=== PATIENT | female | born 2000 | race Caucasian/White ===

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

== ENCOUNTER → 2018-01-22 12:41 | Outpatient (CLI) | payer OTHER, SELFPAY ==
--- NOTE | 2018-01-22 12:43 | US_ITS ---
US OB biophysical profile, US OB follow up: Indication: ITS.REASON: US OB BPP Growth- Small for Dates ORDERING PHYSICIAN: Alanna Ortega MD PATIENT AGE: 17 years FINDINGS: The following parameters are obtained: Average ultrasound age is 33w2d. Estimated due date by ultrasound is 03/10/2018. Estimated weight is 1960. This is 5th percentile indicating intrauterine growth restriction BPD: 34w4d OFD: 34w2d HC: 34w0d AC: 31w3d FL: 33w1d heart rate: 140 bpm. HC/AC: 1.12 (0.96-1.11) Cephalic index: 80% (70-86%) FL/BPD: 75%(71-87%) FL/AC: 24% (20-24%) Amniotic fluid index: 15 cm Qualitative AFV: 2 breathing movements: 2 Gross body movements: 2 Tone: 2 Biophysical profile score: 8/8 No obvious anomalies evident. Placenta: POST Gr 2 Cervix: Appears closed and measures 2.3 cm IMPRESSION: There is a single live fetus which is in cephalic presentation. heart breathing motion noted. Average ultrasound age is 33 weeks and 2 days with a estimated weight of 1960 g which is 50 percentile indicating intrauterine growth restriction. The estimated due date by ultrasound is 03/10/2018. Biophysical profile dated 8 with normal amniotic fluid volume. Placenta is posterior and grade 2
== END ==
PROVIDERS: PCP Emergency Medicine; Visit Provider Obstetrics & Gynecology
DX: O36.5990 Maternal care for other known or suspected poor fetal growth, unspecified trimester, not applicable or unspecified (principal)
CPT/HCPCS: 76816; 76819

== ENCOUNTER → 2018-01-28 12:05 | Outpatient (CLI) | payer OTHER, SELFPAY ==
--- NOTE | 2018-01-28 12:06 | US_ITS ---
US OB biophysical profile, US SD Ratio umbilcal artery: Indication: ITS.REASON: US OB BPP- IUGR ORDERING PHYSICIAN: Alanna Ortega MD PATIENT AGE: 17 years COMPARISON: 01/22/2018 FINDINGS: There is a single fetus present in cephalic presentation. heart body motion noted with an FHR 124 bpm Amniotic fluid index: 12 cm Qualitative AFV: 2 breathing movements: 2 Gross body movements: 2 Tone: 2 Biophysical profile score: 8/8 Doppler evaluation of the umbilical artery: SD ratio: 3.0 Resistive index: 0.67 No obvious anomalies evident. Placenta: Post GR 2 Cervix: Appears closed and measures 3 cm IMPRESSION: Single live fetus in cephalic presentation Biophysical profile 8 out of 8 with normal amniotic fluid index. SD ratio and resistive index are unremarkable below 95th percentile
== END ==
PROVIDERS: PCP Emergency Medicine; Visit Provider Obstetrics & Gynecology
DX: O36.5990 Maternal care for other known or suspected poor fetal growth, unspecified trimester, not applicable or unspecified (principal); Z34.90 Encounter for supervision of normal pregnancy, unspecified, unspecified trimester
CPT/HCPCS: 76819; 76820; 86403

== ENCOUNTER → 2018-02-11 13:02 | Outpatient (CLI) | payer OTHER, SELFPAY ==
--- NOTE | 2018-02-11 13:04 | US_ITS ---
US OB follow up, US SD Ratio umbilcal artery, US OB biophysical profile: INDICATION: Follow-up intrauterine growth restriction ITS.REASON: US OB BPP Growth SD Ratio- IUGR ORDERING PHYSICIAN: Alanna Ortega MD PATIENT AGE: 17 years TECHNIQUE: ultrasound transabdominal scanning. COMPARISON: 01/28/2018. FINDINGS: Single viable intrauterine gestation. Cephalic position. Placenta: Posterior placenta grade 2-3. Average amount of amniotic fluid with an TIFFANY of 15 cm The cervix appears satisfactory. Closed and measuring 3 cm in length. Measurements: Average ultrasound age 35w2d. Gestational Age 37w3d. Estimated due date by ultrasound age 0103/16/2018. Estimated weight 2529 grams. BPD = 36w0d OFD = 36w0d HC = 35w3d AC = 34w6d FL = 34w3d Growth Percentile= 7% Heart Rate = 142 HC/AC is 1.02 (0.92-1.05). CI is 80% (70-86%). FL/BPD is 75% (71-87%). FL/AC is 22% (20-24%). Amniotic fluid index: 15 cm Qualitative AFV: 2 breathing movements: 2 Gross body movements: 2 Tone: 2 Biophysical profile score: 8/8 Doppler evaluation of the umbilical artery: SD ratio: 3.0 Resistive index: 0.66 No obvious anomalies evident. Placenta: Posterior and grade 2-3 Cervix: Appears closed and measures 3 cm IMPRESSION: There is a single live fetus in cephalic presentation with average ultrasound age of 35 weeks and 2 days and an estimated due date of 03/16/2018. Estimated weight is 2529 g which is 7th percentile indicating intrauterine growth restriction. Posterior grade 2-3 placenta without previa or abruption. Biophysical profile 8 of 8. Amniotic fluid index 15 cm. Unremarkable umbilical artery evaluation. SD ratio and resistive index are below the 95th percentile
== END ==
PROVIDERS: PCP Emergency Medicine; Visit Provider Obstetrics & Gynecology
DX: O36.5990 Maternal care for other known or suspected poor fetal growth, unspecified trimester, not applicable or unspecified (principal)
CPT/HCPCS: 76816; 76819; 76820

== ENCOUNTER 2018-02-18 16:01 | Inpatient (IN) ==
[2018-02-18 16:22] VITALS: BP 125/58
[2018-02-18 17:16] LABS: Basophils % 0.3 % (0.1-2.0); Eosinophils % 0.3 % (0.1-12.0); Hematocrit 34.2 % (37.0-47.0); Lymphocytes # 1.9 K/mm3 (0.7-4.5); Lymphocytes % 12.7 % (10-50); Mean Corpuscular HGB Conc 32.1 g/dL (31.8-35.4); Mean Corpuscular Hemoglobin 26.9 pg (27.0-31.2); Mean Corpuscular Volume 83.8 fl (81-99); Mean Platelet Volume 9.8 fl (7.4-10.4); Monocytes # 0.6 K/mm3 (0.1-1.0); Monocytes % 4.1 % (1.7-9.3); Neutrophils % 82.6 % (37.0-80.0); Platelet Count 193 K/mm3 (142-424); Red Blood Count 4.08 M/mm3 (4.20-5.40); Red Cell Distribution Width 13.5 % (11.5-17.5); White Blood Count 14.6 K/mm3 (4.5-13.0)
[2018-02-18 17:28] LABS: Microscopic, Urine URINE MICROSCOPIC (MICROSCOPIC)
[2018-02-18 17:43] LABS: Appearance,Urine CLEAR (Clear); Bilirubin,Urine Negative (Negative); Blood, Urine Negative (Negative); Color,Urine YELLOW (Yellow); Glucose,Urine (UA) Negative (Negative); Ketones,Urine Negative (Negative); Leukocyte Esterase,Urine TRACE (Negative); Protein,Urine Negative (Negative); Urobilinogen,Urine 0.2 EU/dl (0.2)
[2018-02-18 17:57] LABS: Bacteria,Urine Trace /lpf; Squamous Epithelial Cell,Urine Occasional #/hpf (0-5)
[2018-02-19 06:47] LABS: Amphetamine/Metha Screen,Urine Negative ng/mL (<1000); Barbiturates Screen,Urine Negative ng/mL (<200); Benzodiazepines Screen,Urine Negative ng/mL (<200); Cannabinoid Screen,Urine Positive ng/mL (<50); Cocaine Screen,Urine Negative ng/mL (<300); Methadone Screen,Urine Negative ng/mL (<300); Opiate Screen,Urine Negative ng/mL (<300); Phencyclidine Screen,Urine Negative ng/mL (<25)
--- NOTE | 2018-02-19 12:15 | Progress Note ---
[facility] Anesthesia Checklist - Structural Data Admitted From: Inpatient Planned Operative Procedure/s: labor epidural Consent for Planned Operative Procedure(s) Verified: Yes - Airway Assessment C-Spine Mobility Assessed: Yes TMJ Mobility Assessed: Yes Dentition: Good Dentition - Neurological Assessment Level of Consciousness: Awake, Alert, Appropriate - Anesthesia Plan Anesthesia Risk discussed: Yes Anesthesia Plan: Verified ASA Class: II Anesthesia Type: Epidural [facility] History I have reviewed the patient's past medical history: Yes Medical History: Denies:: Cancer, Diabetes Mellitus Type 1, Diabetes Mellitus Type 2, MRSA Laterality Cases: Bilateral: Tonsillectomy Other Surgeries: No: Amputation: No Fractures: No - *Social History Smoking Status: Current every day smoker Tobacco Type: cigarettes # Packs/Day (cigarettes): 1 Alcohol Intake: never Substance Use Type: former substance user, marijuana *Family Hx:: Coronary Artery Disease, Heart Attack, Asthma, Diabetes Para: 0
--- NOTE | 2018-02-19 12:40 | History & Physical Report ---
OB - H&P: HPI Antepartum - History of Present Illness Chief complaint: IOL History of present illness: 17 yo G1 @ 38+ wks IOL for IUGR 5% and grade 3 placenta complicated by tobacco abuse and positive UDS (THC), maternal chlamydia infection (treated successfully with negative repeat testing) She has been consistent with care and compliant with recommended testing testing has been reassuring (NST, BPP, UA dopplers) [facility] History Medical History: Denies:: Cancer, Diabetes Mellitus Type 1, Diabetes Mellitus Type 2, MRSA Laterality Cases: Bilateral: Tonsillectomy Other Surgeries: No: Amputation: No Fractures: No - *Social History Smoking Status: Current every day smoker Tobacco Type: cigarettes # Packs/Day (cigarettes): 1 Alcohol Intake: never Substance Use Type: former substance user, marijuana *Family Hx:: Coronary Artery Disease, Heart Attack, Asthma, Diabetes Para: 0 Review of Systems - Review of Systems CONSTITUTIONAL: no fever/chills HEENT: no oral lesions PULMONARY: no shortness of breath or difficulty breathing CV: no racing heart, palpitations or chest pain ABD: no abdominal pain, N/V : irreg contractions SKIN: no new rash or skin lesions EXT: no edema NEURO: no mental status changes PSYCH: no current anxiety/depression OB: normal movement Meds Home Medications Medication Instructions Recorded Confirmed Type No Known Home Medications 02/18/18 02/18/18 History Allergies Allergy/AdvReac Type Severity Reaction Status Date / Time No Known Allergies Allergy Verified 02/16/18 10:20 OB - H&P: Exam - Physical Exam Vital signs: Temp Pulse Resp BP Pulse Ox 97.8 F 108 H 18 125/58 L 97 02/18/18 16:13 02/18/18 16:13 02/18/18 16:13 02/18/18 16:13 02/18/18 16:13 Narrative: CONSTITUTIONAL: no acute distress HEENT: mucous membranes moist PULMONARY: breathing unlabored without audible wheezes CV: no tachycardia or visible JVD; normal LE peripheral pulses ABD: soft, NT/ND, no guarding : cervix 2/80/-1. Vertex. AROM with clear fluid noted. IUPC and FSE placed without difficulty or complication. SKIN: no visible rash or lesions EXT: 1+ edema LEs NEURO: alert/oriented, no altered mental status PSYCH: appropriate mood and demeanor without visible anxiety/depression OB - Results - Labs Labs: Short CBC 02/18/18 Range/Units 16:57 WBC 14.6 H (4.5-13.0) K/mm3 Hgb 11.0 L (12.2-16.2) g/dL Hct 34.2 L (37.0-47.0) % Plt Count 193 (142-424) K/mm3 Urine 02/18/18 Range/Units 16:25 Urine Color Yellow (Yellow) Urine Appearance Clear (Clear) Urine pH 7.0 (5.0-8.5) Ur Specific [place] 1.020 (1.005-1.030) Urine Protein Negative (Negative) Urine Glucose (UA) Negative (Negative) - Imaging and Cardiology nst Status: image reviewed by me Additional comments: NST: Basline: 140s Variability: moderate Accelerations: yes Decelerations: no Impression: Reactive, Category 1 OB - A/P Antepartum (1) Intrauterine in teenager Current visit: No Status: Acute (2) Intrauterine growth restriction (IUGR) affecting care of mother Problem details: 5% Current visit: No Status: Acute (3) Placental abnormality, antepartum Problem details: Grade 2-3 Current visit: No Status: Acute (4) Positive urine drug screen Problem details: +THC 07/09/17 Current visit: No Status: Acute (5) Tobacco smoking complicating in second trimester Current visit: No Status: Acute (6) Maternal chlamydia infection, history of, currently Current visit: No Status: Acute - Additional Plan Additional Information:: Induction per pitocin protocol S/P amniotomy Epidural placed for pain management Continuous monitoring Anticipate SW consult
[2018-02-19 17:03] LABS: Microscopic, Urine URINE MICROSCOPIC (MICROSCOPIC)
[2018-02-19 17:04] LABS: Appearance,Urine CLEAR (Clear); Bilirubin,Urine Negative (Negative); Blood, Urine Negative (Negative); Color,Urine YELLOW (Yellow); Glucose,Urine (UA) Negative (Negative); Ketones,Urine Negative (Negative); Leukocyte Esterase,Urine Negative (Negative); PH,Urine 6.5 (5.0-8.5); Protein,Urine Negative (Negative); Specific Gravity, Urine 1.015 (1.005-1.030); Urobilinogen,Urine 0.2 EU/dl (0.2)
[2018-02-19 18:09] LABS: Bacteria,Urine 1+ /lpf; Squamous Epithelial Cell,Urine Occasional #/hpf (0-5)
--- NOTE | 2018-02-19 21:22 | Procedure Note ---
- Delivery Note Delivery Date:: 02/19/18 Delivery Time:: 21:00 Anesthesia Type: Epidural Was labor medically induced?: Yes Induction method: per misoprostol protocol Gestational age (weeks): 38 Infant delivered prior to 39 weeks?: Yes Justification for early elective delivery:: IUGR (with grade 3 placenta) Gender: Female at 1 minute: 8 at 5 minutes: 9 LAC or MLE?: MLE Delivery Procedure:: Spontaneous vaginal delivery of vigorous liveborn female infant over MLE. Terminal bradycardia noted during pushing and vertex . Maternal exhaustion precluded effective pushing, at which point small MLE was cut to facilitate delivery sooner. Apgars: 8 & 9 Delivery uncomplicated; no nuchal cord or shoulder dystocia with delivery. Infant placed immediately on maternal abdomen for nursing assessment & VALERIE immediately after umbilical cord clamped/cut Placenta spontaneously expressed and examined; noted to be complete/intact. Several large calcified lesions were identified in the placeta on the cord insertion side, c/w antepartum ultrasound findings. Placenta sent for pathology. Vulva, vagina, and cervix inspected; second degree laceration present. Repaired with 2-0 vicryl in layers, without complication. EBL: 300cc All sponge/needle/instrument counts correct at conclusion of procedure. Disposition: Mom/baby stable to recovery in LDRP. Laceration:: vaginal Placental Delivery Description: Spontaneous, Abnormal Configuration (large calcified lesions)
[2018-02-20 06:39] LABS: Hematocrit 31.6 % (37.0-47.0); Hemoglobin 10.3 g/dL (12.2-16.2)
--- NOTE | 2018-02-20 12:14 | Progress Note ---
Internal Medicine - PN: Subj *Date: 02/20/18 *Time: 12:12 Interval history: PPD #1 no complaints lochia appropriate, pain control sufficient Exam Vital signs and Labs for Last 24 Hours: Temp Pulse Resp BP Pulse Ox 97.8 F 108 H 18 125/58 L 97 02/18/18 16:13 02/18/18 16:13 02/18/18 16:13 02/18/18 16:13 02/18/18 16:13 Laboratory Results - last 24 hr 02/19/18 12:30: Urine Color Yellow, Urine Appearance Clear, Urine pH 6.5, Ur Specific [place] 1.015, Urine Protein Negative, Urine Glucose (UA) Negative, Urine Ketones Negative, Urine Blood Negative, Urine Nitrate Negative, Urine Bilirubin Negative, Urine Urobilinogen 0.2, Ur Leukocyte Esterase Negative, Urine RBC None, Urine WBC 5-10, Ur Squamous Epith Cells Occasional, Urine Bacteria 1+ 02/20/18 06:12: Hgb 10.3 L, Hct 31.6 L I & O for Last 24 hours: Intake & Output 02/18/18 02/19/18 02/20/18 02/21/18 11:59 11:59 11:59 11:59 Weight 135 lb Narrative: CONSTITUTIONAL: no acute distress HEENT: mucous membranes moist PULMONARY: breathing unlabored without audible wheezes CV: no tachycardia or visible JVD; normal LE peripheral pulses ABD: soft, NT/ND, no guarding : fundus firm at/below umbilicus SKIN: no visible rash or lesions EXT: 1+ edema LEs NEURO: alert/oriented, no altered mental status PSYCH: appropriate mood and demeanor without visible anxiety/depression Assessment and Plan (1) Intrauterine in teenager Current visit: No Status: Acute Category: Medical Code(s): Z34.80 - Encounter for supervision of other normal , unspecified trimester (2) Intrauterine growth restriction (IUGR) affecting care of mother Problem details: 5% Current visit: Yes Status: Acute Category: Medical Code(s): O36.5990 - Maternal care for other known or suspected poor growth, unspecified trimester, not applicable or unspecified (3) Placental abnormality, antepartum Problem details: Grade 2-3 Current visit: No Status: Acute Category: Medical Code(s): O43.109 - Malformation of placenta, unspecified, unspecified trimester (4) Positive urine drug screen Problem details: +THC 07/09/17 Current visit: No Status: Acute Category: Medical Code(s): R82.5 - Elevated urine levels of drugs, medicaments and biological substances (5) Tobacco smoking complicating in second trimester Current visit: Yes Status: Acute Category: Medical Code(s): O99.332 - Smoking (tobacco) complicating , second trimester (6) Maternal chlamydia infection, history of, currently Current visit: No Status: Acute Category: Medical (7) Normal vaginal delivery Current visit: Yes Status: Acute Category: Medical Code(s): O80 - Encounter for full-term uncomplicated delivery - Assessment and plan all Dx Assessment and Plan for all problems:: Routine care Anticipate discharge in am
--- NOTE | 2018-02-21 16:17 | Discharge Summary ---
DS: Providers Date of admission: 02/18/18 16:01 Primary care physician: Vamsi Bennett MD Attending physician on admission: Alanna Ortega Consults: 02/18/18 18:05 Care Management Consult [Consult to Case Management] [CONS] Routine Comment: Positive for marijuana this Attending physician on discharge: Alanna Ortega Anticipated date of discharge: 02/21/18 DS: Diagnosis - Discharge Diagnosis (1) Intrauterine in teenager Status: Acute (2) Intrauterine growth restriction (IUGR) affecting care of mother Status: Acute Problem details: 5% (3) Placental abnormality, antepartum Status: Acute Problem details: Grade 2-3 (4) Positive urine drug screen Status: Acute Problem details: +THC 07/09/17 (5) Tobacco smoking complicating in second trimester Status: Acute (6) Maternal chlamydia infection, history of, currently Status: Acute (7) Normal vaginal delivery Status: Acute DS: Medications - Discharge Medications Prescriptions: New Oxycodone HCl/Acetaminophen [Percocet 5/325mg tablet] 1 each PO Q6HP PRN #14 tab PRN Reason: Severe Pain Ibuprofen [Motrin 400mg tablet] 800 mg PO Q6HP PRN #30 tab PRN Reason: Mild To Moderate Pain OB - DS: Summary Hospital course: Ms. Lassiter is a 17 year old female Time spent discussing smoking cessation with patient: more than 10 minutes - Peripartum Data Delivery method: spontaneous vaginal delivery Episiotomy description: Midline complications: none - Status at Discharge Cognitive/behavioral status at discharge: normal/appropriate Functional status at discharge: independent ambulation Overall status at discharge: patient is progressing back to baseline - Time Spent with Patient Total time spent providing and/or coordinating discharge services: Less than 30 minutes Exam Vital signs and Labs for Last 24 Hours: Temp Pulse Resp BP Pulse Ox 97.8 F 108 H 18 125/58 L 97 02/18/18 16:13 02/18/18 16:13 02/18/18 16:13 02/18/18 16:13 02/18/18 16:13 I & O for Last 24 hours: Intake & Output 02/19/18 02/20/18 02/21/18 02/22/18 11:59 11:59 11:59 11:59 Weight 135 lb Narrative: CONSTITUTIONAL: no acute distress HEENT: mucous membranes moist PULMONARY: breathing unlabored without audible wheezes CV: no tachycardia or visible JVD; normal LE peripheral pulses ABD: soft, NT/ND, no guarding : fundus firm at/below umbilicus SKIN: no visible rash or lesions EXT: 1+ edema LEs NEURO: alert/oriented, no altered mental status PSYCH: appropriate mood and demeanor without visible anxiety/depression Discharge Plan - Patient Discharge Instructions ACTIVITY: Limited activity DIET: regular diet - Follow up Plan Disposition: Home, Self-Care Prescriptions/Medication Reconciliation: No Action No Known Home Medications
== END 2018-02-21 16:51 | disposition home or self-care (01) ==
LOC: OB 16:01
PROVIDERS: ADMIT Obstetrics & Gynecology; ATTEND Obstetrics & Gynecology

== ENCOUNTER → 2018-04-23 15:10 | Outpatient (CLI) | payer SELFPAY ==
[2018-04-23 15:38] LABS: HCG,Quantitative 0 mIU/mL
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
== END ==
PROVIDERS: Visit Provider Obstetrics & Gynecology
DX: Z32.00 Encounter for pregnancy test, result unknown (principal)
CPT/HCPCS: 36415; 84702

== ENCOUNTER 2019-09-03 14:59 | Emergency (ER) | payer OTHER, SELFPAY ==
[2019-09-03 15:25] VITALS: BP 100/61; PULSE 63; RESP 16; TEMP 36.9; O2SAT 97; BMI 21.7
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
--- NOTE | 2019-09-03 16:00 | PC.NURSE ---
[facility] crisis center called for a 3rd time and stated that I would be receiving a phone call shortly from a national account representative.
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
[2019-09-03 17:05] VITALS: BP 117/78; PULSE 74; RESP 18; O2SAT 97
--- NOTE | 2019-09-03 17:20 | PC.NURSE ---
Addendum entered by Olga Lidia Cary RN 09/04/19 14:03: Officer abdias notified this nurse Original Note: Officer marla notified that the patient now wishes to follow through with the exam, MD notified.
[2019-09-03 19:17] VITALS: BP 107/61; PULSE 60; RESP 16; O2SAT 98
--- NOTE | 2019-09-03 19:25 | PC.NURSE ---
Dr Ortiz and myself performed the SAFE exam by the instruction in the kit that the officer provided upon arrival to hospital. Sealed completed kit given to Officer Noah. Pt clothes during that she had on when she arrived place in brown paper bags and labeled, patient changed in clothes she had brought in.
--- NOTE | 2019-09-03 20:22 | PC.NURSE ---
[facility] called back and they don't have a bed for this pt at this time
[2019-09-03 20:32] VITALS: BP 123/85; PULSE 80; RESP 20; TEMP 36.8; O2SAT 96
== END 2019-09-03 19:30 | disposition home or self-care (01) ==
PROVIDERS: Emergency Provider Family Medicine; PCP Nurse Practitioner Family
DX: Z04.41 Encounter for examination and observation following alleged adult rape (principal); Z90.09 Acquired absence of other part of head and neck; F17.210 Nicotine dependence, cigarettes, uncomplicated
CPT/HCPCS: 99284

== ENCOUNTER 2019-09-20 19:54 | Emergency (ER) | payer OTHER, SELFPAY ==
[2019-09-20 20:06] VITALS: BP 132/74; PULSE 97; RESP 22; TEMP 36.7; O2SAT 97; BMI 20.1
--- NOTE | 2019-09-20 20:17 | PC.NURSE ---
dr merino returned second call. inr reported at 2.12; states he would rather have patient transfer. md at bedside.
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
[2019-09-20 20:29] VITALS: BP 125/75; PULSE 73; RESP 16; TEMP 36.8; O2SAT 98
== END 2019-09-20 20:34 ==
PROVIDERS: Emergency Provider Emergency Medicine; PCP Nurse Practitioner Family
DX: F32.9 Major depressive disorder, single episode, unspecified (principal); S61.512A Laceration without foreign body of left wrist, initial encounter; W26.0XXA Contact with knife, initial encounter; Y92.019 Unspecified place in single-family (private) house as the place of occurrence of the external cause; F17.210 Nicotine dependence, cigarettes, uncomplicated
CPT/HCPCS: 99282

== ENCOUNTER 2019-10-03 15:46 | Emergency (ER) | payer OTHER, SELFPAY ==
[2019-10-03 16:06] VITALS: BP 114/69; PULSE 68; RESP 19; TEMP 36.8; O2SAT 98; BMI 22.4
[2019-10-03 16:16] VITALS: BP 114/69; PULSE 68; RESP 19; TEMP 36.8; O2SAT 98
--- NOTE | 2019-10-03 16:21 | HMH.EDUTC ---
[facility] [place] Impression: Dental infection Disposition: Home, Self-Care Condition on Discharge: Good Instructions: DI for Dental Pain, DI for Tooth Decay, Tooth Decay, Tooth Abscess Additional Instructions: Make sure to gargle warm salt water may help to soothe the gums Over the counter Motrin and/or Tylenol of pain and fever Take medication as prescribed Follow up with Family doctor/Dentist for further treatment and evaluation Return if needed Straight to ER if any life threatening symptoms Prescriptions: Amoxicillin/Potassium Clav [Augmentin 875-125 Tablet] 1 tab PO Q12H 7 Days #14 tab Prescription Printed Referrals: Azucena Huerta APRN [Primary Care Provider] - As needed Time of Disposition: 16:35 Medical Decision Making - Pierce Inquiry Pt receiving controlled substance: No Pierce was queried for this patient: No Vital Signs: 10/03/19 16:06 10/03/19 16:16 Temperature 98.2 F 98.2 F Temperature Source Oral Oral Pulse Rate 68 Pulse Rate [Left] 68 Respiratory Rate 19 19 Blood Pressure 114/69 Blood Pressure [Right Arm] 114/69 Blood Pressure Mean [Right Arm] 84 Blood Pressure Source [Right Arm] Automatic Cuff Blood Pressure Position [Right Arm] Sitting 02 Sat by Pulse Oximetry 98 Oxygen Delivery Method Room Air Room Air [facility] - General Stated complaint: DENTAL PAIN Time Seen by Provider: 10/03/19 16:21 Mode of Arrival: Ambulatory Source of Information: Patient Limitations: No Limitations Description of Symptoms (Recalled from Triage Doc. by RN): Abscess tooth HEENT Symptoms (Recalled from RN notes): Yes Resp Symptoms (Recalled from RN notes): No Skin Symptoms (Recalled from RN notes): No MS Symptoms (Recalled from RN notes): No Functional Status (Recalled from RN notes): stable - History of Present Illness Provider Complaint: Patient states that she noticed she was having some redness and swelling in her gums on her lower and a area on her upper gumline States that she has been gargling warm salt water but it hasnt helped much States that today looked like it was starting to swell so she come in to get checked - Related Data Home Medications Medication Instructions Recorded Confirmed etonogestrel 68 mg subdermal 68 mg SUBDERMAL ONCE each 04/24/18 02/09/19 implant Previous Rx's Medication Instructions Recorded Azithromycin [Zithromax 250mg 250 mg PO DIRECTED #6 tab 02/09/19 tab] predniSONE [Prednisone 20mg 20 mg PO BID #10 tab 02/09/19 Tab] Amoxicillin/Potassium Clav 1 tab PO Q12H 7 Days #14 tab 10/03/19 [Augmentin 875-125 Tablet] Allergies Allergy/AdvReac Type Severity Reaction Status Date / Time No Known Allergies Allergy Verified 10/29/18 14:02 - Worker's Comp Is this a Worker's Comp case?: No Is this an H Worker's Comp?: No Is this a [place] Worker's Comp?: No [facility] History - Hepatitis A Screen Drug use history?: No High risk sexual behaviors?: No History of sexually transmitted infection?: No Currently employed?: No Childcare worker?: No Do you have indoor plumbing?: Yes Do you have electricity?: Yes Attestation statement:: This patient has been screened for Hepatitis A risk factors. I have reviewed the patient's past medical history: Yes Medical History: Denies:: Cancer, Diabetes Mellitus Type 1, Diabetes Mellitus Type 2, Internal Pacemaker, MRSA Laterality Cases: Bilateral: Tonsillectomy Other Surgeries: No: , Pacemaker Amputation: No Fractures: No - Social History Smoking Status: Current every day smoker Tobacco Type: cigarettes # Packs/Day (cigarettes): 1 Alcohol Intake: never Substance Use Type: marijuana Occupational Status: employed Family Hx:: Coronary Artery Disease, Heart Attack, Asthma, Diabetes ROS Obtained: Yes All systems reviewed & no additional complaints, Yes Systems reviewed as appropriate & no additional complaints - ENT Ears, Nose, Mouth, and Throat: Reports d
== END 2019-10-03 16:31 | disposition home or self-care (01) ==
PROVIDERS: Emergency Provider Nurse Practitioner; PCP Nurse Practitioner Family
DX: K04.7 Periapical abscess without sinus (principal); F17.210 Nicotine dependence, cigarettes, uncomplicated; F12.10 Cannabis abuse, uncomplicated
CPT/HCPCS: 99201

== ENCOUNTER 2019-12-27 16:43 | Emergency (ER) | payer OTHER, SELFPAY ==
--- NOTE | 2019-12-27 16:34 | ECG_ITS ---
APPROVED REPORT Exam: Resting ECG HR:89 bpm ECG Measurements Heart Rate 89 AXES OR 118 P 82 QRSd 90 QRS 97 QT 346 T 8 QTc 420 Conclusion Normal sinus rhythm Rightward axis,CHAKA Nonspecific ST-T wave abnormalities Abnormal ECG Electronically signed by : Bartolo Singer, 01/10/2020 16:40:07
[2019-12-27 16:43] VITALS: BP 136/83; PULSE 94; RESP 16; TEMP 36.5; O2SAT 99; BMI 20.3
[2019-12-27 16:46] VITALS: BMI 20.3
--- NOTE | 2019-12-27 16:47 | XR_ITS ---
PROCEDURE: XR CHEST 2V CLINICAL HISTORY: chest pain Chest pain COMPARISON: CR CXR CHEST(2 VIEWS-NOT PORTABLE) from 07/17/2010 CR XR RIBS BI MIN 4V W CXR1V from 12/23/2018 CR XR CHEST 2V from 02/09/2019 FINDINGS: The cardiomediastinal silhouette and pulmonary vascularity are within normal limits. The lungs are clear without infiltrates, suspicious nodules, or pleural effusions. No acute bony abnormalities. IMPRESSION: No acute findings. Dictated by: Eric Chan MD 12/27/2019 17:11 Eric Chan MD in [place] 12/27/2019 17:11
--- NOTE | 2019-12-27 16:51 | HMH.EDGENADL ---
ED Disposition Clinical Impression: Gastritis Qualifiers: Gastritis type: unspecified gastritis Chronicity: acute Gastritis bleeding: without bleeding Qualified Code(s): K29.00 - Acute gastritis without bleeding Gastric ulcer Qualifiers: Gastric ulcer chronicity: acute Gastric ulcer complication status: without hemorrhage or perforation Qualified Code(s): K25.3 - Acute gastric ulcer without hemorrhage or perforation Disposition: Home, Self-Care Condition on Discharge: Good Instructions: DI for Gastroesophageal Reflux Disease (GERD) Prescriptions: Famotidine 10 mg PO BID 30 Days #60 tablet Referrals: Provider,Referral, [Referring] - - Critical Care Critical Care Time: No Attestation: On 12/27/19, the high probability of a clinically significant, sudden or life threatening deterioration of the following system(s) required my full and direct attention, intervention and personal management. The time I documented below is in addition to time spent performing reported procedures but includes the following listed in this critical care notation. Medical Decision Making - Medical Records Medical records reviewed: Yes: I reviewed the patient's medical records. - Pierce Inquiry Pt receiving controlled substance: No Vital Signs: 12/27/19 16:43 12/27/19 17:04 Temperature 97.7 F Temperature Source Oral Pulse Rate [Left Radial] 94 H 88 Respiratory Rate 16 20 Blood Pressure [Right Arm] 136/83 126/76 Blood Pressure Mean [Right Arm] 100 92 Blood Pressure Source [Right Arm] Automatic Cuff Automatic Cuff Blood Pressure Position [Right Arm] Sitting Sitting 02 Sat by Pulse Oximetry 99 96 Oxygen Delivery Method Room Air - Lab Data Lab results reviewed: Yes: I reviewed the patient's lab results. Lab Results 12/27/19 16:45: WBC 9.1, RBC 5.79 H, Hgb 16.8 H, Hct 52.2 H, MCV 90.1, MCH 29.1, MCHC 32.3, RDW 12.8, Plt Count 249, MPV 8.2, Neut % (Auto) 64.0, Lymph % (Auto) 26.6, Baldwin % (Auto) 6.4, Eos % (Auto) 2.1, Baso % (Auto) 0.9, Neut # (Auto) 5.8, Lymph # (Auto) 2.4, Baldwin # (Auto) 0.6, Eos # (Auto) 0.2, Baso # (Auto) 0.1 12/27/19 16:45: Troponin I < 0.01 12/27/19 16:45: Sodium 139, Potassium 3.7, Chloride 105, Carbon Dioxide 25, Anion Gap 12.7, BUN 13, Creatinine 0.80, Estimated Creat Clear 92, Estimated GFR 91, Est GFR ( Amer) 110, Glucose 85, Calcium 9.8, Total Bilirubin 0.7, AST 24, ALT 16, Alkaline Phosphatase 68, Total Protein 8.0, Albumin 4.7, Globulin 3.3 H, Albumin/Globulin Ratio 1.4 Result diagrams: 12/27/19 16:45 12/27/19 16:45 Orders (Tests/Meds): ED MEDICATIONS Discontinued Medications Generic Name Dose Route Start Last Admin Trade Name Freq PRN Reason Stop Dose Admin Belladonna Alkaloids 60 ml 12/27/19 16:47 12/27/19 16:51 Gi Cocktail 60ml Udc PO 12/27/19 16:48 60 ml ONCE ONE Administration ORDERS Category Date Time Status Troponin I Q3H Lab 12/27/19 20:00 Ordered Troponin I Q3H Lab 12/27/19 23:00 Ordered Urine , HCG Qual. Stat Lab 12/27/19 17:00 Ordered Medical Decision Narrative: 19-year-old female who comes in the emergency department for evaluation of left upper abdominal pain/chest pain. Pain started approximately 30 minutes prior to arrival. Differential diagnosis includes but is not limited to GERD, gastritis, perforated ulcer, myocardial infarction, and less likely pancreatitis. Labs obtained including CBC, CMP, troponins. EKG obtained immediately upon arrival negative for any evidence of ST elevation, ST depression, or T wave abnormalities concerning for ACS at this time. Chest x-ray obtained, personally reviewed, and negative for acute abnormalities. Provided patient with GI cocktail. Labs show no significant electrolyte abnormalities requiring correction in the emergency department. No leukocytosis. Evidence of mild dehydration with increased hemoglobin and hematocrit. Significant LFT elevations. Urine test obtained and neg
[2019-12-27 17:04] VITALS: BP 126/76; PULSE 88; RESP 20; O2SAT 96
[2019-12-27 17:05] LABS: Basophils # 0.1 K/mm3 (0-0.2); Basophils % 0.9 % (0.1-2.0); Eosinophils # 0.2 K/mm3 (0.0-0.4); Eosinophils % 2.1 % (0.1-12.0); Hematocrit 52.2 % (37.0-47.0); Hemoglobin 16.8 g/dL (12.2-16.2); Lymphocytes # 2.4 K/mm3 (0.7-4.5); Lymphocytes % 26.6 % (10-50); Mean Corpuscular HGB Conc 32.3 g/dL (31.8-35.4); Mean Corpuscular Hemoglobin 29.1 pg (27.0-31.2); Mean Corpuscular Volume 90.1 fl (81-99); Mean Platelet Volume 8.2 fl (7.4-10.4); Monocytes # 0.6 K/mm3 (0.1-1.0); Monocytes % 6.4 % (1.7-9.3); Neutrophils # 5.8 K/mm3 (1.8-7.8); Platelet Count 249 K/mm3 (142-424); Red Blood Count 5.79 M/mm3 (4.20-5.40); Red Cell Distribution Width 12.8 % (11.5-17.5); White Blood Count 9.1 K/mm3 (4.8-10.8)
[2019-12-27 17:08] LABS: Chloride 105 mmol/L (98-107); Sodium 139 mmol/L (136-145)
[2019-12-27 17:09] LABS: Potassium 3.7 mmoL/L (3.5-5.1)
[2019-12-27 17:11] LABS: Alanine Aminotransferase 16 U/L (12-78); Alkaline Phosphatase 68 U/L (38-126); Aspartate Amino Transferase 24 U/L (14-36); Bilirubin,Total 0.7 mg/dl (0.2-1.3); Blood Urea Nitrogen 13 mg/dl (7-17); Creatinine Clearance Estimated 92 mL/min (50-200); Estimated Glomerular Filt Rate 91 ml/min (>60); GFR (African American) 110 ML/MIN (>60)
[2019-12-27 17:12] LABS: Albumin Level 4.7 g/dl (3.5-5.0); Albumin/Globulin Ratio 1.4 (1.1-1.8); Anion Gap 12.7 mEq/L (5-15); Calcium 9.8 mg/dl (8.4-10.2); Carbon Dioxide 25 mmol/L (22.0-30.0); Globulin 3.3 g/dL (1.3-3.2); Glucose 85 mg/dl (74-100)
[2019-12-27 17:44] LABS: Troponin I < 0.01 ng/ml (0.00-0.034)
[2019-12-27 18:09] LABS: Urine Pregnancy, HCG Qual. Negative (Negative)
[2019-12-27 18:48] VITALS: BP 101/70; PULSE 74; RESP 18; TEMP 36.5; O2SAT 96
== END 2019-12-27 18:49 | disposition home or self-care (01) ==
PROVIDERS: Emergency Provider Emergency Medicine; PCP Nurse Practitioner Family
DX: K29.00 Acute gastritis without bleeding (principal); K25.3 Acute gastric ulcer without hemorrhage or perforation; R07.9 Chest pain, unspecified; F12.10 Cannabis abuse, uncomplicated; F17.210 Nicotine dependence, cigarettes, uncomplicated
CPT/HCPCS: 71046; 80053; 81025; 84484; 85025; 93005; 99283

== ENCOUNTER 2020-01-25 15:40 | Emergency (ER) | payer OTHER, SELFPAY ==
[2020-01-25 15:49] VITALS: BP 119/80; PULSE 86; RESP 18; TEMP 36.7; O2SAT 96; BMI 22.4
--- NOTE | 2020-01-25 16:23 | HMH.EDUTC ---
[facility] [place] Disposition Clinical Impression: Bronchitis, Exposure to COVID-19 virus Disposition: Home, Self-Care Condition on Discharge: Good Instructions: Preventing the Spread of Coronavirus Discharge Instructions Additional Instructions: Drink plenty of fluids. Take tylenol for pain or fever. Return if you begin to have difficulty breathing. Follow up with your regular doctor. GO TO THE ER FOR ANY WORSENING SYMPTOMS Prescriptions: Brompheniramine/Pseudoephed/Dm [Bromfed Dm Cough Syrup] 5 ml PO Q6HP PRN #240 syrup PRN Reason: Cough Transmission Status: Pending to [facility] RX: Azithromycin [Z-Bi 250mg Tab*] 250 mg PO UD DOSE PK #6 tab Transmission Status: Pending to [facility] Referrals: Azucena Huerta APRN [Primary Care Provider] - Forms: Work/School Release Time of Disposition: 16:33 Medical Decision Making - Medical Records Medical records reviewed: No: I reviewed the patient's medical records. - Pierce Inquiry Pt receiving controlled substance: No Vital Signs: 01/25/20 15:49 Temperature 98.1 F Temperature Source Oral Pulse Rate [Radial] 86 Respiratory Rate 18 Blood Pressure [Right Arm] 119/80 Blood Pressure Mean [Right Arm] 93 Blood Pressure Source [Right Arm] Automatic Cuff Blood Pressure Position [Right Arm] Sitting 02 Sat by Pulse Oximetry 96 Oxygen Delivery Method Room Air Orders (Tests/Meds): ORDERS Category Date Time Status Covid-19 Nasal PCR ([facility]) Routine Lab 01/25/20 15:47 Received [facility] [place] HPI - General Stated complaint: SOA, cough, diarrhea, COVID Exposure Time Seen by Provider: 01/25/20 16:23 Mode of Arrival: Ambulatory Source of Information: Patient Limitations: No Limitations Description of Symptoms (Recalled from Triage Doc. by RN): SOB, ANDERSON, cough x 1 week. HEENT Symptoms (Recalled from RN notes): Yes Resp Symptoms (Recalled from RN notes): No Skin Symptoms (Recalled from RN notes): No MS Symptoms (Recalled from RN notes): No Functional Status (Recalled from RN notes): wnl - History of Present Illness Provider Complaint: She has had a cough and felt bad for the past 2 days. She has had no fever/chills/or body aches. She has been exposed to covid multiple times over the past week or so. - Related Data Home Medications Medication Instructions Recorded Confirmed etonogestrel 68 mg subdermal 68 mg SUBDERMAL ONCE each 04/24/18 02/09/19 implant Previous Rx's Medication Instructions Recorded Azithromycin [Zithromax 250mg 250 mg PO DIRECTED #6 tab 02/09/19 tab] predniSONE [Prednisone 20mg 20 mg PO BID #10 tab 02/09/19 Tab] Amoxicillin/Potassium Clav 1 tab PO Q12H 7 Days #14 tab 10/03/19 [Augmentin 875-125 Tablet] RX: Famotidine 10 mg PO BID 30 Days #60 tab 12/27/19 Brompheniramine/Pseudoephed/Dm 5 ml PO Q6HP PRN #240 syrup 01/25/20 [Bromfed Dm Cough Syrup] RX: Azithromycin [Z-Bi 250mg Tab*] 250 mg PO UD DOSE PK #6 tab 01/25/20 Allergies Allergy/AdvReac Type Severity Reaction Status Date / Time No Known Allergies Allergy Verified 10/29/18 14:02 - Worker's Comp Is this a Worker's Comp case?: No [facility] History - Hepatitis A Screen Drug use history?: No High risk sexual behaviors?: No History of sexually transmitted infection?: No Currently employed?: No Childcare worker?: No Do you have indoor plumbing?: Yes Do you have electricity?: Yes Attestation statement:: This patient has been screened for Hepatitis A risk factors. I have reviewed the patient's past medical history: Yes Medical History: Denies:: Cancer, Diabetes Mellitus Type 1, Diabetes Mellitus Type 2, Internal Pacemaker, MRSA Laterality Cases: Bilateral: Tonsillectomy Other Surgeries: No: , Pacemaker Amputation: No Fractures: No - Social History Smoking Status: Current every day smoker Tobacco Type: cigarettes # Packs/Day (cigarettes): 1 Alcohol Intake: never Substance Use Type: marijuana Occupational S
[2020-01-25 16:41] VITALS: BP 119/80; PULSE 70; RESP 16; TEMP 36.8; O2SAT 98
== END 2020-01-25 16:42 | disposition home or self-care (01) ==
PROVIDERS: Emergency Provider Nurse Practitioner Family; PCP Nurse Practitioner Family
DX: Z20.828 Contact with and (suspected) exposure to other viral communicable diseases (principal); J20.9 Acute bronchitis, unspecified; F17.210 Nicotine dependence, cigarettes, uncomplicated
CPT/HCPCS: 99201; U0003

== ENCOUNTER 2020-02-14 11:21 | Emergency (ER) | payer OTHER, SELFPAY ==
[2020-02-14 12:15] VITALS: BP 112/64; PULSE 75; RESP 18; TEMP 36.7; O2SAT 99; BMI 22.4
[2020-02-14 12:20] VITALS: BP 112/64; PULSE 75; RESP 18; TEMP 36.7; O2SAT 99
--- NOTE | 2020-02-14 12:21 | HMH.EDUTC ---
[facility] [place] Clinical Impression: Encounter for laboratory testing for COVID-19 virus, Bronchitis Sinusitis Qualifiers: Sinusitis location: unspecified location Chronicity: unspecified Qualified Code(s): J32.9 - Chronic sinusitis, unspecified Disposition: Home, Self-Care Condition on Discharge: Good Instructions: Sinusitis, DI for Sinusitis, Acute Bronchitis, Amoxicillin and Clavulanic Acid, Preventing the Spread of Coronavirus Discharge Instructions Additional Instructions: *Monitor Temp, Over the counter Motrin or Tylenol as directed/as needed Tylenol every 4 hours and Motrin every 6 hours (as long as your family doctor has told you that you can take it) for fever or pain. and straight to ER if unable to lower temp less than 101.0 after medication given *Warm salt water gargles may help to soothe the throat *Throat Lozenges *Warm fluids like tea with honey may help to soothe the throat *Sleep elevated *Humidifier/Vaporizer *Flonase 2 sprays in each nostril daily but be aware that it may take 2-3 days before you notice improvement Follow up IMMEDIATELY for new or worsening symptoms or no Noticeable improvement over the next 48-72 hours. 911 for difficulty breathing or swallowing You were tested for today for COVID19 your test result should be back in the next 24-48 hours, you may call to the [facility] to see if your test results are back in the next 48 hours [phone] [facility] hours are 9am-9pm You was given a handout with instructions for Self Quarantine and Self isolation for while you wait on test results and what to do if they are positive If you are positive the Health Dept will be contacting you also Prescriptions: Albuterol Sulfate [Proventil-HFA 90mcg/puff Inh] 1 - 2 puffs IH Q4HP PRN #1 inh PRN Reason: Shortness Of Breath Transmission Status: Pending to [facility] Amoxicillin/Potassium Clav [Augmentin 875-125 Tablet] 1 tab PO Q12H 7 Days #14 tab Transmission Status: Pending to [facility] Referrals: Azucena Huerta APRN [Primary Care Provider] - As needed Forms: Work/School Release Time of Disposition: 12:29 Medical Decision Making - Pierce Inquiry Pt receiving controlled substance: No Pierce was queried for this patient: No Vital Signs: 02/14/20 12:15 Temperature 98.1 F Temperature Source Oral Pulse Rate [Left] 75 Respiratory Rate 18 Blood Pressure [Right Arm] 112/64 Blood Pressure Mean [Right Arm] 80 Blood Pressure Source [Right Arm] Automatic Cuff Blood Pressure Position [Right Arm] Sitting 02 Sat by Pulse Oximetry 99 Oxygen Delivery Method Room Air Orders (Tests/Meds): ORDERS Category Date Time Status Covid-19 Nasal PCR Sendout [facility] 02/14/20 12:07 Ordered [facility] [place] HPI - General Stated complaint: Cough, fever, headache Time Seen by Provider: 02/14/20 12:21 Mode of Arrival: Ambulatory Source of Information: Patient Limitations: No Limitations Description of Symptoms (Recalled from Triage Doc. by RN): Covid testing symptomatic-SOB, Cough, fever, headache, body aches HEENT Symptoms (Recalled from RN notes): Yes Resp Symptoms (Recalled from RN notes): Yes Skin Symptoms (Recalled from RN notes): No MS Symptoms (Recalled from RN notes): Yes Functional Status (Recalled from RN notes): wnl - History of Present Illness Provider Complaint: Patient state that she was seen and treated for Bronchitis about a month ago Statse that she feels like it may be back States that she has been having sinus pain and pressure along with cough, sinus pain and pressure and feels like she cannot breath through her nose States that she has been having a low grade fever State that she went to work and they made her come and get tested for COVID - Related Data Home Medications Medication Instructions Recorded Confirmed etonogestrel 68 mg subdermal 68 mg SUBDERMAL ONCE each 04/24/18 02/09/19 implant Previous Rx's Medication Instructions Recorded Azithromycin [
[2020-02-15 14:04] LABS: Covid-19 Nasal PCR Sendout Lex NOT DETECTED
== END 2020-02-14 12:50 | disposition home or self-care (01) ==
PROVIDERS: Emergency Provider Nurse Practitioner; PCP Nurse Practitioner Family
DX: Z20.828 Contact with and (suspected) exposure to other viral communicable diseases (principal); J20.9 Acute bronchitis, unspecified; J32.9 Chronic sinusitis, unspecified; F17.210 Nicotine dependence, cigarettes, uncomplicated
CPT/HCPCS: 99201; U0004

== ENCOUNTER 2020-07-05 17:49 | Emergency (ER) | payer OTHER, SELFPAY ==
[2020-07-05 17:52] VITALS: BP 118/60; PULSE 81; RESP 18; TEMP 36.9; O2SAT 99; BMI 21.0
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
[2020-07-05 18:28] LABS: Urine Pregnancy, HCG Qual. Negative (Negative)
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
[2020-07-05 19:00] VITALS: BP 107/61; PULSE 67; RESP 17; O2SAT 97
[2020-07-05 19:36] VITALS: BP 104/78; PULSE 69; RESP 16; TEMP 36.9; O2SAT 98
== END 2020-07-05 19:38 | disposition home or self-care (01) ==
PROVIDERS: Emergency Provider Emergency Medicine; PCP Nurse Practitioner Family
DX: S29.019A Strain of muscle and tendon of unspecified wall of thorax, initial encounter (principal); S23.41XA Sprain of ribs, initial encounter; V40.0XXA Car driver injured in collision with pedestrian or animal in nontraffic accident, initial encounter; Y92.413 State road as the place of occurrence of the external cause
CPT/HCPCS: 71250; 72128; 81025; 99282

== ENCOUNTER 2020-09-25 22:06 | Emergency (ER) | payer OTHER, SELFPAY ==
[2020-09-25 22:07] VITALS: BP 126/65; PULSE 65; RESP 16; TEMP 36.7; O2SAT 97; BMI 21.0
[2020-09-25 22:29] LABS: Microscopic, Urine URINE MICROSCOPIC (MICROSCOPIC)
[2020-09-25 22:31] LABS: Basophils # 0.1 K/mm3 (0-0.2); Basophils % 1.5 % (0.1-2.0); Eosinophils # 0.2 K/mm3 (0.0-0.4); Eosinophils % 2.1 % (0.1-12.0); Hematocrit 42.3 % (37.0-47.0); Hemoglobin 14.5 g/dL (12.2-16.2); Lymphocytes % 40.8 % (10-50); Mean Corpuscular HGB Conc 34.2 g/dL (31.8-35.4); Mean Corpuscular Hemoglobin 29.7 pg (27.0-31.2); Mean Corpuscular Volume 86.9 fl (81-99); Mean Platelet Volume 8.4 fl (7.4-10.4); Monocytes # 0.6 K/mm3 (0.1-1.0); Monocytes % 6.5 % (1.7-9.3); Neutrophils # 4.8 K/mm3 (1.8-7.8); Neutrophils % 49.2 % (37.0-80.0); Platelet Count 187 K/mm3 (142-424); Red Blood Count 4.87 M/mm3 (4.20-5.40); Red Cell Distribution Width 12.9 % (11.5-17.5); White Blood Count 9.7 K/mm3 (4.8-10.8)
[2020-09-25 22:40] LABS: Urine Pregnancy, HCG Qual. Negative (Negative)
[2020-09-25 22:46] LABS: Alanine Aminotransferase 14 U/L (12-78); Albumin Level 4.6 g/dl (3.5-5.0); Albumin/Globulin Ratio 1.6 (1.1-1.8); Alkaline Phosphatase 60 U/L (38-126); Aspartate Amino Transferase 29 U/L (14-36); Bilirubin,Total 0.4 mg/dl (0.2-1.3); Blood Urea Nitrogen 19 mg/dl (7-17); Calcium 9.8 mg/dl (8.4-10.2); Carbon Dioxide 26 mmol/L (22.0-30.0); Chloride 106 mmol/L (98-107); Creatinine Clearance Estimated 81 mL/min (50-200); Estimated Glomerular Filt Rate 79 ml/min (>60); GFR (African American) 96 ML/MIN (>60); Globulin 2.9 g/dL (1.3-3.2); Glucose 101 mg/dl (74-100); Sodium 140 mmol/L (136-145); Total Protein,Serum 7.5 g/dl (6.3-8.2)
[2020-09-25 22:53] LABS: Appearance,Urine CLEAR (Clear); Bilirubin,Urine Negative (Negative); Blood, Urine TRACE-I (Negative); Color,Urine YELLOW (Yellow); Glucose,Urine (UA) Negative (Negative); Ketones,Urine TRACE (Negative); Leukocyte Esterase,Urine Negative (Negative); Nitrate,Urine Negative (Negative); Protein,Urine 1+ (Negative); Specific Gravity, Urine >= 1.030 (1.005-1.030); Urobilinogen,Urine 0.2 EU/dl (0.2)
[2020-09-25 22:59] LABS: C-Reactive Protein < 0.3 mg/L (0-4)
--- NOTE | 2020-09-25 23:00 | PC.NURSE ---
Pt refused PO contrast stated she didn't want to wait that long
[2020-09-25 23:09] LABS: Erythrocyte Sedimentation Rate 6 mm/hr (0-20)
[2020-09-25 23:26] LABS: Procalcitonin < 0.030 ng/mL (0.0-2.0)
--- NOTE | 2020-09-25 23:44 | HMH.EDNVD ---
ED Disposition Clinical Impression: Pelvic pain Disposition: Home, Self-Care Condition on Discharge: Good Instructions: DI for Pelvic Pain Additional Instructions: advil/tyenol and see pcp for follow up Referrals: Azucena Huerta APRN [Primary Care Provider] - - Critical Care Critical Care Time: No Attestation: On 09/25/20, the high probability of a clinically significant, sudden or life threatening deterioration of the following system(s) required my full and direct attention, intervention and personal management. The time I documented below is in addition to time spent performing reported procedures but includes the following listed in this critical care notation. Medical Decision Making - Medical Records Medical records reviewed: Yes: I reviewed the patient's medical records. - Pierce Inquiry Pt receiving controlled substance: No Vital Signs: 09/25/20 22:07 Temperature 98.1 F Temperature Source Oral Pulse Rate [Left Radial] 65 Respiratory Rate 16 Blood Pressure [Right Arm] 126/65 Blood Pressure Mean [Right Arm] 85 Blood Pressure Source [Right Arm] Automatic Cuff Blood Pressure Position [Right Arm] Sitting 02 Sat by Pulse Oximetry 97 Oxygen Delivery Method Room Air - Lab Data Lab results reviewed: Yes: I reviewed the patient's lab results. Lab Results 09/25/20 22:10: Urine Color Yellow, Urine Appearance Clear, Urine pH 6.0, Ur Specific [place] >= 1.030, Urine Protein 1+, Urine Glucose (UA) Negative, Urine Ketones Trace, Urine Blood Trace-i, Urine Nitrate Negative, Urine Bilirubin Negative, Urine Urobilinogen 0.2, Ur Leukocyte Esterase Negative 09/25/20 22:10: Urine HCG, Qual Negative 09/25/20 22:15: WBC 9.7, RBC 4.87, Hgb 14.5, Hct 42.3, MCV 86.9, MCH 29.7, MCHC 34.2, RDW 12.9, Plt Count 187, MPV 8.4, Neut % (Auto) 49.2, Lymph % (Auto) 40.8, [place] % (Auto) 6.5, Eos % (Auto) 2.1, Baso % (Auto) 1.5, Neut # (Auto) 4.8, Lymph # (Auto) 4.0, [place] # (Auto) 0.6, Eos # (Auto) 0.2, Baso # (Auto) 0.1 09/25/20 22:15: Sodium 140, Potassium 4.0, Chloride 106, Carbon Dioxide 26, Anion Gap 12.0, BUN 19 H, Creatinine 0.90, Estimated Creat Clear 81, Estimated GFR 79, Est GFR ( Amer) 96, Glucose 101 H, Calcium 9.8, Total Bilirubin 0.4, AST 29, ALT 14, Alkaline Phosphatase 60, Total Protein 7.5, Albumin 4.6, Globulin 2.9, Albumin/Globulin Ratio 1.6 09/25/20 22:18: ESR 6 09/25/20 22:18: C-Reactive Protein < 0.3, Procalcitonin < 0.030 Result diagrams: 09/25/20 22:15 09/25/20 22:15 Orders (Tests/Meds): ED MEDICATIONS Generic Name Dose Route Start Last Admin Trade Name Freq PRN Reason Stop Dose Admin Lactated Ringer's 1,000 mls @ 999 mls/hr 09/25/20 22:30 09/25/20 23:10 Lactated Ringer's 1000 Ml Bag IV 09/25/20 23:30 999 mls/hr .Q1H1M EMMANUEL Administration Discontinued Medications Generic Name Dose Route Start Last Admin Trade Name Freq PRN Reason Stop Dose Admin Diatrizoate Meglum/Diatrizoate Sod 30 ml 09/25/20 22:58 09/25/20 23:22 Diatrizoate Ya 66% & Diatrizoate Na 10% 30ml Udc PO 09/25/20 22:59 Not Given ONCE ONE Ketorolac Tromethamine 30 mg 09/25/20 22:33 09/25/20 23:09 Ketorolac 30mg/Ml Vial IV 09/25/20 22:34 30 mg ONCE ONE Administration Ondansetron HCl 4 mg 09/25/20 22:33 09/25/20 23:09 Ondansetron 4mg/2ml Vial IV 09/25/20 22:34 4 mg ONCE ONE Administration ORDERS Category Date Time Status CT abdomen pelvis w con Stat Cat Scan 09/26/20 00:05 Ordered Urinalysis and Microscopic Stat Lab 09/25/20 22:10 Results Medical Decision Narrative: declined ct and has stable vs and labs will refer to pcp Nausea/Vomiting/Diarrhea HPI - General Chief complaint: Abdominal Pain Stated complaint: Abd pain Time Seen by Provider: 09/25/20 23:00 Mode of Arrival: Ambulatory Source of Information: Patient, Medical Record Limitations: No Limitations Description of Symptoms (Recalled from ER Triage Doc. by RN): Pt reports lower abd cramping along wi
--- NOTE | 2020-09-26 00:02 | PC.NURSE ---
pt refused have ct completed. vss. emv 15.
[2020-09-26 00:17] VITALS: BP 121/75; PULSE 75; RESP 18; TEMP 36.8; O2SAT 98
[2020-09-26 00:25] LABS: Squamous Epithelial Cell,Urine Occasional #/hpf (0-5)
[2020-09-26 00:26] LABS: Bacteria,Urine 1+ /lpf
== END 2020-09-26 00:23 | disposition home or self-care (01) ==
PROVIDERS: Emergency Provider Emergency Medicine; PCP Nurse Practitioner Family
DX: R10.2 Pelvic and perineal pain (principal); F17.210 Nicotine dependence, cigarettes, uncomplicated
CPT/HCPCS: 80053; 81001; 81025; 84145; 85025; 85651; 86140; 96365; 96375; 99282; J2405

== ENCOUNTER → 2021-01-11 17:59 | Outpatient (CLI) | payer OTHER, SELFPAY | PROVIDERS: Visit Provider Physician Assistant | DX: N39.0 Urinary tract infection, site not specified (principal) | CPT/HCPCS: 87086 ==

== ENCOUNTER → 2021-01-31 07:58 | Outpatient (CLI) | payer OTHER, SELFPAY ==
--- NOTE | 2021-01-31 07:58 | CT_ITS ---
PROCEDURE: CT CHEST WO CON CLINICAL INDICATION: Pleurisy COMPARISON: CT CT CHEST WO CON from 07/05/2020 TECHNIQUE: Axial images obtained with sagittal and coronal reformats. All CT scans at the facility use one or more dose reduction, viz: automated exposure control, ma/kV adjustment per patient size (including targeted exams where dose is matched to indication, i.e. head), or iterative reconstruction technique. FINDINGS: No mediastinal or. There are calcified similar to the previous. Increased density in the anterior mediastinum consistent tissue Scattered small nodules once again not significantly changed. No evident. No effusions or infiltrates. No acute bony anomalies. Upper abdominal images are. IMPRESSION: No change no acute finding. Scattered small pulmonary nodules stable. Dictated by: Eric Chan MD 02/01/2021 08:57 Eric Chan MD in [place] 02/01/2021 08:57
== END ==
PROVIDERS: PCP Nurse Practitioner Family; Visit Provider Nurse Practitioner Family
DX: R09.1 Pleurisy (principal); R52 Pain, unspecified
CPT/HCPCS: 71250

== ENCOUNTER → 2022-07-11 10:07 | Outpatient (CLI) | payer OTHER, SELFPAY ==
[2022-07-11 10:52] LABS: HCG,Quantitative < 2 mIU/ml (0-5.42)
== END ==
PROVIDERS: PCP Nurse Practitioner Family; Visit Provider Nurse Practitioner Psychiatric/Mental Health
DX: Z34.90 Encounter for supervision of normal pregnancy, unspecified, unspecified trimester (principal)
CPT/HCPCS: 36415; 84702

== ENCOUNTER 2022-07-16 09:10 | Emergency (ER) | payer OTHER, SELFPAY ==
[2022-07-16] VITALS (11 sets, daily range): BP systolic 114–126; BP diastolic 46–76; PULSE 51–74; RESP 18–20; TEMP 36.3; O2SAT 98–100; BMI 20.3
[2022-07-16 09:26] LABS: Microscopic, Urine URINE MICROSCOPIC (MICROSCOPIC)
--- NOTE | 2022-07-16 09:26 | HMH.EDGENADL ---
Discharge Plan Disposition Patient Disposition: Home, Self-Care Condition: Good Prescriptions Prescriptions: New ondansetron 4 mg tablet,disintegrating 4 mg PO Q8H PRN (Reason: nausea and vomiting) 4 Days Qty: 12 0RF No Action spironolactone 50 mg tablet 50 mg PO BID glycopyrrolate 1 mg tablet 1 mg PO BID Qty: 60 2RF Junel Fe 24 1 mg-20 mcg (24)/75 mg (4) tablet 1 tab PO DAILY Qty: 84 3RF Vraylar 3 mg capsule 3 mg PO DAILY Qty: 30 1RF hydroxyzine pamoate [Vistaril] 50 mg capsule 50 mg PO QHS Qty: 30 1RF hydroxyzine pamoate [Vistaril] 25 mg capsule 25 mg PO .COMPLEX PRN (Reason: for sleep) Qty: 60 0RF Rx Instructions: 25 mg PO take 1 capsule at bedtime; if still awake in 1 hour; may repeat the dose PRN; albuterol sulfate [ProAir HFA] 90 mcg/actuation HFA aerosol inhaler See Rx Instructions .ROUTE .COMPLEX Qty: 8.5 0RF Dose Instruction: 2 PUFFS BY MOUTH EVERY 4 TO 6 HOURS NEEDED FOR SHORTNESS OF BREATH OR WHEEZING Rx Instructions: 2 PUFFS BY MOUTH EVERY 4 TO 6 HOURS NEEDED FOR SHORTNESS OF BREATH OR WHEEZING Referrals Follow up/Referrals: Azucena Huerta APRN [Primary Care Provider] - See instructions Activity Restrictions/Add. Instructions Additional Instructions/Restrictions: You were evaluated in the emergency department today. At this time, feel your symptoms are likely related to gastroenteritis. Please crab picker your prescription for Zofran and take as needed for nausea and vomiting. Follow-up with your primary care provider over the next 3 days. Return to the emergency department for new or worsening symptoms. Clinical Impressions Clinical Impression: Gastroenteritis Instructions Patient Instructions: DI for Viral Gastroenteritis -- Adult, DI for Acute Abdominal Pain Discharge ED Provider: Kellee Bacon General Adult HPI General Chief complaint: Abdominal Pain Stated complaint: abd pain, vomiting, diarrhea Time Seen by Provider: 07/16/22 09:20 History of Present Illness HPI narrative: This patient is a 21-year-old female who denies significant past medical history presented to the emergency department for evaluation with concern for lower abdominal pain, nausea, vomiting, and diarrhea x48 hours. She states that the pain has worsened since last night and she was unable to sleep secondary to pain. She describes it as cramping. She states that she is supposed to be on her period right now, but she has not yet started. She started oral control in March and since then has only had 1 period. She denies fevers, chills, cough, congestion, sore throat, or other concerns. She took Tylenol and Midol at home without improvement. She denies any abnormal vaginal discharge, dysuria, or other concerns. She denies any concern for sexually transmitted infection. Related Data Home Medications Medication Instructions Recorded Confirmed spironolactone 50 mg tablet 50 mg PO BID 04/01/22 07/11/22 Previous Rx's Medication Instructions Recorded glycopyrrolate 1 mg tablet 1 mg PO BID #60 tabs 11/21/21 hydroxyzine pamoate 25 mg capsule 25 mg PO .COMPLEX PRN for sleep 04/24/22 (Vistaril) #60 caps norethindrone 1 mg-ethinyl 1 tab PO DAILY #84 tabs 05/13/22 estradiol 20 mcg (24)-iron 75 mg (4) tablet (June) albuterol sulfate 90 mcg/actuation See Rx Instructions .Route 07/05/22 aerosol inhaler (ProAir HFA) .COMPLEX #8.5 grams cariprazine 3 mg capsule (Vraylar) 3 mg PO DAILY #30 caps 07/11/22 hydroxyzine pamoate 50 mg capsule 50 mg PO QHS #30 caps 07/11/22 (Vistaril) ondansetron 4 mg disintegrating 4 mg PO Q8H PRN nausea and 07/16/22 tablet vomiting 4 days #12 tabs Allergies Allergy/AdvReac Type Severity Reaction Status Date / Time No Known Allergies Allergy Verified 07/11/22 09:48 [facility] Disclaimer: The information contained in this section may have been updated after the patient was seen, as this informat
--- NOTE | 2022-07-16 09:35 | CT_ITS ---
FINAL REPORT TECHNIQUE: After the administration of IV contrast axial images through the abdomen and pelvis was performed by computed tomography. Sagittal and coronal reformatted images were obtained and reviewed. This study was performed with techniques to keep radiation doses as low as reasonably achievable (ALARA). Individualized dose reduction techniques using automated exposure control or adjustment of mA and/or kV according to the patient's size were employed. CLINICAL HISTORY: RLQ pain, vomiting FINDINGS: Abdomen: Lung bases are clear. The gallbladder is unremarkable. Liver has an unremarkable CT appearance. The spleen, pancreas and adrenal glands are unremarkable. Kidneys show no mass or obstruction. No bowel obstruction or fluid collection is seen. There is diffuse colonic wall thickening, greatest in the right colon. Differential would include infectious colitis or inflammatory bowel disease. The distal ileum is unremarkable. Pelvis: The appendix is not visualized but there are no secondary findings to suggest appendicitis. The uterus is retroverted. There is a trace amount of free fluid in the pelvis. There is no adenopathy. IMPRESSION: Appendix not identified but no secondary findings to suggest appendicitis. Moseley colitis which could believed related to infectious colitis or inflammatory bowel disease. Reviewed, Interpreted and Dictated by Sravanthi Bryant MD Transcribed by Erna Felix Authenticated and [facility]
--- NOTE | 2022-07-16 09:35 | US_ITS ---
FINAL REPORT CLINICAL HISTORY: RLQ pain FINDINGS: Transvaginal sonographic images of the uterus were obtained. The uterus is retroflexed without enlargement or mass. The endometrium is normal measuring 2 mm. The ovaries are unremarkable. There is a small amount of nonspecific free fluid. IMPRESSION: Nonspecific free fluid although physiologic is favored. Exam is otherwise unremarkable. Reviewed, Interpreted and Dictated by Sravanthi Bryant MD Transcribed by Erna Felix Authenticated and [facility]
[2022-07-16 09:38] LABS: Basophils # 0.1 K/mm3 (0-0.2); Basophils % 0.8 % (0.1-2.0); Chloride 104 mmol/L (98-107); Eosinophils # 0.3 K/mm3 (0.0-0.4); Eosinophils % 2.7 % (0.1-12.0); Hematocrit 43.1 % (37.0-47.0); Hemoglobin 14.2 g/dL (12.2-16.2); Lymphocytes # 2.2 K/mm3 (0.7-4.5); Lymphocytes % 20.6 % (10-50); Mean Corpuscular Hemoglobin 29.2 pg (27.0-31.2); Mean Corpuscular Volume 88.6 fl (81-99); Mean Platelet Volume 8.3 fl (7.4-10.4); Monocytes # 0.5 K/mm3 (0.1-1.0); Neutrophils # 7.7 K/mm3 (1.8-7.8); Platelet Count 220 K/mm3 (142-424); Red Blood Count 4.87 M/mm3 (4.20-5.40); Red Cell Distribution Width 12.8 % (11.5-17.5); Sodium 138 mmol/L (136-145); White Blood Count 10.9 K/mm3 (4.8-10.8)
[2022-07-16 09:41] LABS: Alanine Aminotransferase 52 U/L (12-78); Albumin/Globulin Ratio 1.3 (1.1-1.8); Alkaline Phosphatase 61 U/L (38-126); Aspartate Amino Transferase 41 U/L (14-36); Bilirubin,Total 0.3 mg/dl (0.2-1.3); Blood Urea Nitrogen 12 mg/dl (7-17); Calcium 8.8 mg/dl (8.4-10.2); Carbon Dioxide 23 mmol/L (22.0-30.0); Creatinine Clearance Estimated 90 mL/min (50-200); Estimated Glomerular Filt Rate 89 ml/min (>60); GFR (African American) 108 ML/MIN (>60); Glucose 97 mg/dl (74-100); Lipase 103 U/L (23-300)
[2022-07-16 09:47] LABS: C-Reactive Protein 2.3 mg/L (0-4)
[2022-07-16 10:04] LABS: Urine Pregnancy, HCG Qual. Negative (Negative)
[2022-07-16 10:10] LABS: HCG Qualitative, Serum Negative (Negative)
[2022-07-16 10:13] LABS: Appearance,Urine CLEAR (Clear); Bilirubin,Urine Negative (Negative); Blood, Urine TRACE-I (Negative); Color,Urine YELLOW (Yellow); Glucose,Urine (UA) Negative (Negative); Ketones,Urine Negative (Negative); Leukocyte Esterase,Urine Negative (Negative); Nitrate,Urine Negative (Negative); Protein,Urine TRACE (Negative); Specific Gravity, Urine >= 1.030 (1.005-1.030); Urobilinogen,Urine 0.2 EU/dl (0.2)
[2022-07-16 10:15] LABS: Erythrocyte Sedimentation Rate 3 mm/hr (0-20)
[2022-07-16 10:28] LABS: Bacteria,Urine Trace /lpf; RBC,Urine Occasional #/hpf (0-3); Squamous Epithelial Cell,Urine 20-50 #/hpf (0-5); WBC,Urine Occasional #/hpf (0-3)
--- NOTE | 2022-07-16 10:46 | PC.NURSE ---
called for update on imaging. rad to sent prelim
--- NOTE | 2022-07-16 12:24 | PC.NURSE ---
rounded on pt no complaints at this time,call light at bs
== END 2022-07-16 13:25 | disposition home or self-care (01) ==
PROVIDERS: Emergency Provider Emergency Medicine; PCP Nurse Practitioner Family
DX: K52.9 Noninfective gastroenteritis and colitis, unspecified (principal); F17.210 Nicotine dependence, cigarettes, uncomplicated
CPT/HCPCS: 74177; 76830; 80053; 81001; 81025; 83690; 84703; 85025; 85651; 86140; 96361; 96374; 99284; 99285; J2405; Q9967

== ENCOUNTER 2022-12-23 23:59 | Emergency (ER) | payer OTHER, SELFPAY ==
[2022-12-24] VITALS: BP 175/77; PULSE 101; RESP 18; TEMP 37.3; O2SAT 98; BMI 20.3
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
[2022-12-24 00:31] VITALS: BP 168/74; PULSE 94; RESP 18; TEMP 37.3; O2SAT 98
--- NOTE | 2023-03-31 02:41 | PC.NURSE ---
Accessed chart for facesheet per EMS at this time.
== END 2022-12-24 00:35 ==
PROVIDERS: Emergency Provider Emergency Medicine
DX: Z00.8 Encounter for other general examination (principal)
CPT/HCPCS: 99282

== ENCOUNTER 2023-03-13 17:39 | Emergency (ER) | payer OTHER, SELFPAY ==
[2023-03-13 18:20] VITALS: BP 124/81; PULSE 72; RESP 18; TEMP 36.8; O2SAT 99; BMI 23.0
--- NOTE | 2023-03-13 18:41 | EXP.UTC ---
Discharge Plan Disposition Patient Disposition: Home, Self-Care Condition: Good Prescriptions Prescriptions: New azithromycin [Zithromax] 250 mg tablet 250 mg PO UD DOSE PK Qty: 6 0RF Rx Instructions: Take two (2) tablets today, then one (1) tablet days #2 thru #5 methylprednisolone 4 mg Tablets,Dose Pack 4 mg PO DIRECTED 6 Days Qty: 21 0RF Rx Instructions: Take 1 pack as directed for 6 days No Action albuterol sulfate [Ventolin HFA] 90 mcg/actuation HFA aerosol inhaler See Rx Instructions .ROUTE .COMPLEX Qty: 18 0RF Dose Instruction: INHALE 2 PUFFS BY MOUTH EVERY 4 TO 6 HOURS NEEDED FOR SHORTNESS OF BREATH OR WHEEZING Rx Instructions: INHALE 2 PUFFS BY MOUTH EVERY 4 TO 6 HOURS NEEDED FOR SHORTNESS OF BREATH OR WHEEZING Vraylar 3 mg capsule 3 mg PO DAILY Qty: 30 1RF hydroxyzine pamoate 50 mg capsule 50 mg PO QHS Qty: 30 1RF Referrals Follow up/Referrals: Azucena Huerta APRN [Primary Care Provider] - See instructions Activity Restrictions/Add. Instructions Additional Instructions/Restrictions: Drink plenty of fluids. Take tylenol or ibuprofen for pain or fever. Take the medications as directed. Follow up with your regular doctor. GO TO THE ER FOR ANY WORSENING SYMPTOMS Clinical Impressions Clinical Impression: Pharyngitis, Oral ulcer Instructions Patient Instructions: DI for Pharyngitis/Tonsillopharyngitis -- Adult Discharge ED Provider: Greg Lacy [facility] General Stated complaint: blisters inside and outside of mouth Mode of Arrival: Ambulatory Source of Information: Patient Limitations: No Limitations Time Seen by Provider: 03/13/23 18:41 Description of Symptoms (Recalled from Triage Doc. by RN): blisters in mouth and outside of mouth HEENT Symptoms (Recalled from RN notes): Yes Resp Symptoms (Recalled from RN notes): No Skin Symptoms (Recalled from RN notes): No MS Symptoms (Recalled from RN notes): No Functional Status (Recalled from RN notes): n/a History of Present Illness Provider Complaint: She states that for the past 3 days she has had sore throat and several blisters inside her mouth. Related Data Previous Rx's Medication Instructions Recorded albuterol sulfate 90 mcg/actuation See Rx Instructions .Route 11/13/22 aerosol inhaler (Ventolin HFA) .COMPLEX #18 grams cariprazine 3 mg capsule (Vraylar) 3 mg PO DAILY #30 caps 01/13/23 hydroxyzine pamoate 50 mg capsule 50 mg PO QHS #30 caps 01/13/23 azithromycin 250 mg tablet 250 mg PO UD DOSE PK #6 tabs 03/13/23 (Zithromax) methylprednisolone 4 mg tablets in 4 mg PO DIRECTED 6 days #21 tabs 03/13/23 a dose pack Allergies Allergy/AdvReac Type Severity Reaction Status Date / Time No Known Allergies Allergy Verified 03/13/23 18:41 Worker's Comp Is this a Worker's Comp case?: No [facility] Disclaimer: The information contained in this section may have been updated after the patient was seen, as this information can be updated by other users. Medical History Bipolar II disorder History of chlamydia infection Intrauterine growth restriction (IUGR) affecting care of mother Positive urine drug screen Surgical History History of tonsillectomy and adenoidectomy History of wisdom tooth extraction Family History Other Diabetes Hypertension Social History Smoking Status: Current every day smoker tobacco type: cigarettes packs per day: 1 second hand exposure: No alcohol intake: never substance use type: marijuana current occupational status: unemployed Travel in the last 8 weeks: None number of children: 1 current occupational exposures/hazards: No caffeine: No ROS Obtained: Yes All systems reviewed & no additional complaints except as documented Constitutional Constitutional: Reports chills and Reports fever(s) Eyes Eyes: Denies eye discharge ENT Ears, Nose, Mouth, and Throat: Reports as per HPI Cardiovascular Cardiovascular: Denies chest pain Respiratory Respiratory: Denies chest congestion and Reports cough Gastrointestinal Gastrointestingal: Reports nausea; Denies abdominal pain, constipation, cramping, diarrhea or vomiting Musculoskeletal Musculoskeletal: Denies arthralgias Integumentary/Breasts Skin/Breast: Denies rash Neurologic Neurologic: Denies paresthesias Physical Exam General General appearance: alert and in no apparent distress Head Head exam: atraumatic, normocephalic and normal inspection Eye Eye exam: Present normal appearance, PERRL and EOMI ENT ENT exam: Present mucous membranes moist and normal external ear exam Expanded ENT Exam TM/Canal exam: Bilateral TM: erythema and bulging Nose exam: Absent sinus tenderness Mouth exam: Present normal external inspection; Absent drooling Teeth exam: Present normal inspection Throat exam: Present tonsillar erythema, tonsillomegaly and tonsillar exudate Neck Neck exam: Present normal inspection, full ROM and trachea midline; Absent tenderness, meningismus or lymphadenopathy Chest Chest inspection: Present normal inspection and symmetric chest wall rise; Absent tenderness Respiratory Respiratory exam: Present normal lung sounds bilaterally; Absent respiratory distress, wheezes or stridor Cardiovascular Cardiovascular exam: Present regular rate and normal rhythm; Absent systolic murmur or diastolic murmur Abdominal Exam Abdominal exam: Present soft and normal bowel sounds; Absent distention, tenderness, guarding, rebound or rigidity Extremities Exam Extremities exam: Present normal inspection and normal capillary refill; Absent calf tenderness Back Exam Back exam: Present normal inspection and full ROM; Absent tenderness, CVA tenderness (R) or CVA tenderness (L) Neurological Exam Neurological exam: Present alert, oriented X3 and CN II-XII intact Psychiatric Psychiatric exam: Present normal affect and normal mood Skin Skin exam: Present warm, dry, intact and normal color Medical Decision Making Medical Records Medical records reviewed: No I reviewed the patient's medical records. Pierce Inquiry Pt receiving controlled substance: No Vital Signs: 03/13/23 18:20 Temperature 98.3 F Temperature Source Oral Pulse Rate [Right Radial] 72 Respiratory Rate 18 Blood Pressure [Right Arm] 124/81 Blood Pressure Mean [Right Arm] 95 Blood Pressure Source [Right Arm] Automatic Cuff Blood Pressure Position [Right Arm] Sitting 02 Sat by Pulse Oximetry 99 Oxygen Delivery Method Room Air Lab Data Lab results reviewed: Yes I reviewed the patient's lab results.
[2023-03-13 18:53] LABS: UTC Strep Screen (Rapid) Negative (Negative)
[2023-03-13 19:20] VITALS: BP 124/81; PULSE 72; RESP 18; TEMP 36.8; O2SAT 99
== END 2023-03-13 19:20 | disposition home or self-care (01) ==
PROVIDERS: Emergency Provider Nurse Practitioner Family; PCP Nurse Practitioner Family
DX: J02.9 Acute pharyngitis, unspecified (principal); K12.0 Recurrent oral aphthae; F17.210 Nicotine dependence, cigarettes, uncomplicated
CPT/HCPCS: 87880; 99204; 99212; G0463

== ENCOUNTER 2023-05-15 21:53 | Outpatient (CLI) | payer OTHER, SELFPAY ==
[2023-05-15 19:30] LABS: HCG,Quantitative < 2 mIU/ml (0-5.42)
== END 2023-05-15 23:59 ==
LOC: LAB.DROPOF 21:54
PROVIDERS: PCP Physician Assistant; Visit Provider Physician Assistant
DX: Z32.00 Encounter for pregnancy test, result unknown (principal); N92.6 Irregular menstruation, unspecified
CPT/HCPCS: 84702

== ENCOUNTER 2023-06-05 10:33 | Outpatient (POV) | payer OTHER, SELFPAY ==
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
[2023-06-05 11:58] VITALS: BP 121/76; PULSE 82; RESP 18; O2SAT 99; BMI 21.9
== END 2023-06-05 23:59 | disposition home or self-care (01) ==
PROVIDERS: PCP Physician Assistant; Visit Provider Nurse Practitioner Family
DX: M54.42 Lumbago with sciatica, left side (principal); M54.41 Lumbago with sciatica, right side; M25.551 Pain in right hip; M25.552 Pain in left hip; M46.1 Sacroiliitis, not elsewhere classified
CPT/HCPCS: 99202; G0463

== ENCOUNTER 2023-08-12 16:20 | Outpatient (CLI) | payer OTHER, SELFPAY ==
--- NOTE | 2023-08-12 16:21 | US_ITS ---
PROCEDURE: US TRANSVAGINAL CLINICAL INDICATION: AUB, Oligomenorrhea, Pelvic Pain COMPARISON: CT CT ABDOMEN PELVIS W CON from 07/16/2022 US US TRANSVAGINAL from 07/16/2022 FINDINGS: Transvaginal sonographic images of the pelvis were obtained. UTERUS: 7.3cm x 5.4cmx 4.0cm retroverted and retroflexed with a combined endometrial thickness of 4.4mm. LEFT OVARY: 2.3cmx2.0cmx2.0cm with a volume of 4.8ml. There are multiple small follicles in the left ovary. The largest measures 1.0 cm. The left ovary has a polycystic appearance. RIGHT OVARY: 3.9 cmx 2.3cmx1.7 cm with a volume of 8.2ml. There are multiple small follicles within the right ovary. The largest measures 1.0 cm. The ovary has a polycystic appearance. Both ovaries are seen and appear normal. Doppler flow to both ovaries are seen. There is no fluid in the cul-de-sac. IMPRESSION: 1. Retroverted, retroflexed uterus normal in shape and size. The endometrium is thin measuring 4.4 mm. 2. Both ovaries are seen and appear polycystic. There are multiple follicles on each ovary. The largest measures 1 cm. 3. No fluid in the cul-de-sac. Dictated by: Pascual Gamboa MD 08/13/2023 15:24 Pascual Gamboa MD in [place] 08/13/2023 15:24
== END 2023-08-12 23:59 | disposition home or self-care (01) ==
LOC: RAD 16:21
PROVIDERS: PCP Physician Assistant; Visit Provider Obstetrics & Gynecology
DX: N93.9 Abnormal uterine and vaginal bleeding, unspecified (principal); N92.6 Irregular menstruation, unspecified; R10.2 Pelvic and perineal pain
CPT/HCPCS: 76830

== ENCOUNTER 2023-10-09 15:51 | Outpatient (CLI) | payer OTHER, SELFPAY ==
[2023-10-09 16:17] LABS: Basophils # 0.1 K/mm3 (0-0.2); Basophils % 0.9 % (0.1-2.0); Eosinophils # 0.2 K/mm3 (0.0-0.4); Eosinophils % 2.2 % (0.1-12.0); Hematocrit 42.9 % (37.0-47.0); Hemoglobin 14.1 g/dL (12.2-16.2); Lymphocytes % 20.4 % (10-50); Mean Corpuscular HGB Conc 32.9 g/dL (31.8-35.4); Mean Corpuscular Hemoglobin 30.1 pg (27.0-31.2); Mean Corpuscular Volume 91.4 fl (81-99); Mean Platelet Volume 7.7 fl (7.4-10.4); Monocytes # 0.6 K/mm3 (0.1-1.0); Monocytes % 5.8 % (1.7-9.3); Neutrophils # 6.8 K/mm3 (1.8-7.8); Neutrophils % 70.7 % (37.0-80.0); Platelet Count 285 K/mm3 (142-424); Red Cell Distribution Width 13.7 % (11.5-17.5); White Blood Count 9.7 K/mm3 (4.8-10.8)
[2023-10-09 16:38] LABS: Alanine Aminotransferase 26 U/L (12-78); Albumin Level 3.8 g/dl (3.5-5.0); Albumin/Globulin Ratio 1.4 (1.1-1.8); Alkaline Phosphatase 66 U/L (38-126); Anion Gap 9.6 mEq/L (5-15); Aspartate Amino Transferase 25 U/L (14-36); Bilirubin,Total 0.2 mg/dl (0.2-1.3); Blood Urea Nitrogen 14 mg/dl (7-17); Calcium 9.4 mg/dl (8.4-10.2); Carbon Dioxide 28 mmol/L (22.0-30.0); Chloride 107 mmol/L (98-107); Estimated Glomerular Filt Rate 87 ml/min (>60); GFR (African American) 106 ML/MIN (>60); Globulin 2.8 g/dL (1.3-3.2); Glucose 85 mg/dl (74-100); Potassium 3.6 mmoL/L (3.5-5.1); Sodium 141 mmol/L (136-145); Total Protein,Serum 6.6 g/dl (6.3-8.2)
[2023-10-09 16:53] LABS: HCG,Quantitative 25 mIU/ml (0-5.42)
[2023-10-09 17:07] LABS: Thyroid Stimulating Hormone 2.16 uIU/mL (0.465-4.68)
[2023-10-11 07:22] LABS: Prolactin 15.1 ng/mL (4.8-33.4); Testosterone,Total 22 ng/dL (13-71)
[2023-10-11 12:12] LABS: FSH 6.3 mIU/mL (.); LH 2.2 mIU/mL (.); Progesterone 0.3 ng/mL (.)
== END 2023-10-09 23:59 | disposition home or self-care (01) ==
LOC: LAB 15:54
PROVIDERS: PCP Physician Assistant; Visit Provider Obstetrics & Gynecology
DX: N91.5 Oligomenorrhea, unspecified (principal); L70.9 Acne, unspecified; R23.2 Flushing; N93.9 Abnormal uterine and vaginal bleeding, unspecified
CPT/HCPCS: 80050; 80053; 82626; 83001; 83002; 83498; 84144; 84146; 84403; 84443; 84702; 85025

== ENCOUNTER 2023-10-13 14:07 | Outpatient (CLI) | payer OTHER, SELFPAY ==
[2023-10-13 15:32] LABS: HCG,Quantitative 7 mIU/ml (0-5.42)
== END 2023-10-13 23:59 | disposition home or self-care (01) ==
LOC: LAB 14:08
PROVIDERS: PCP Physician Assistant; Visit Provider Obstetrics & Gynecology
DX: N93.9 Abnormal uterine and vaginal bleeding, unspecified (principal)
CPT/HCPCS: 36415; 84702

== ENCOUNTER 2023-11-04 14:22 | Outpatient (CLI) | payer OTHER, SELFPAY ==
[2023-11-04 16:03] LABS: HCG,Quantitative 89 mIU/ml (0-5.42)
== END 2023-11-04 23:59 | disposition home or self-care (01) ==
LOC: LAB 14:24
PROVIDERS: PCP Physician Assistant; Visit Provider Obstetrics & Gynecology
DX: Z34.90 Encounter for supervision of normal pregnancy, unspecified, unspecified trimester (principal)
CPT/HCPCS: 36415; 84702

== ENCOUNTER 2023-11-07 11:04 | Outpatient (CLI) | payer OTHER, SELFPAY ==
[2023-11-07 12:40] LABS: HCG,Quantitative 343 mIU/ml (0-5.42)
[2023-11-08 10:41] LABS: Progesterone 10.9 ng/mL (.)
== END 2023-11-07 23:59 | disposition home or self-care (01) ==
LOC: LAB 11:05
PROVIDERS: PCP Physician Assistant; Visit Provider Obstetrics & Gynecology
DX: N92.6 Irregular menstruation, unspecified (principal)
CPT/HCPCS: 36415; 84144; 84702

== ENCOUNTER 2023-12-02 15:27 | Outpatient (CLI) | payer MEDICAID, SELFPAY ==
[2023-12-02 16:02] LABS: Basophils # 0.1 K/mm3 (0-0.2); Basophils % 0.5 % (0.1-2.0); Eosinophils # 0.1 K/mm3 (0.0-0.4); Eosinophils % 1.2 % (0.1-12.0); Lymphocytes # 2.1 K/mm3 (0.7-4.5); Lymphocytes % 19.3 % (10-50); Mean Corpuscular HGB Conc 32.6 g/dL (31.8-35.4); Mean Corpuscular Hemoglobin 30.1 pg (27.0-31.2); Mean Corpuscular Volume 92.4 fl (81-99); Monocytes # 0.6 K/mm3 (0.1-1.0); Monocytes % 5.3 % (1.7-9.3); Neutrophils # 8.1 K/mm3 (1.8-7.8); Neutrophils % 73.7 % (37.0-80.0); Platelet Count 199 K/mm3 (142-424); Red Blood Count 4.66 M/mm3 (4.20-5.40); Red Cell Distribution Width 13.2 % (11.5-17.5)
[2023-12-02 18:27] LABS: HIV (1&2) Antibody Rapid NONREACTIVE (NONREACTIVE)
[2023-12-04 05:10] LABS: HCV Ab Non Reactive (Non Reactive); Hepatitis B Surface Antigen Negative (Negative)
[2023-12-04 08:51] LABS: Rubella Antibodies, IgG 4.88 index (Immune >0.99)
[2023-12-04 12:35] LABS: Rapid Plasma Reagin Ab Titer Non Reactive titer (NonRea<1:1)
== END 2023-12-02 23:59 | disposition home or self-care (01) ==
LOC: LAB 15:27
PROVIDERS: PCP Physician Assistant; Visit Provider Obstetrics & Gynecology
DX: Z34.90 Encounter for supervision of normal pregnancy, unspecified, unspecified trimester (principal)
CPT/HCPCS: 36415; 85025; 86593; 86762; 86803; 86850; 87086; 87340; 87389

== ENCOUNTER 2024-02-26 13:16 | Outpatient (CLI) | payer OTHER, SELFPAY ==
--- NOTE | 2024-02-26 13:16 | US_ITS ---
PROCEDURE: US OB /MATERNAL DETAIL CLINICAL INDICATION: 20 week + Anatomy Scan-US OB Complete COMPARISON: US US TRANSVAGINAL from 08/12/2023 FINDINGS: Transabdominal sonographic images of the pelvis were obtained. From her established due date she is 20 weeks 4 days. Single viable intrauterine gestation. Breech position. Placenta: Anteriorplacenta grade 1. Placental Mcnulty is seen. There is an average amount of fluid. The cervix appears satisfactory. Closed and measuring 6.84 cm in length. Complete survey performed and was unremarkable on the submitted images as in PACS. No discrete anomalies identified on survey imaging by technologist. Active fetus. Three-vessel cord with satisfactory umbilical cord insertion. 4- chamber heart noted. Situs, aortic arch, LVOT, RVOT, three-vessel view appear normal. Survey of brain & ventricles Unremarkable. Cerebellum, thalamus, choroid plexus, cisterna magna appear normal. Face and neck survey unremarkable. Profile, nasion, lips and nose appeared normal. Diaphragm and chest views unremarkable. Abdomen: Both kidneys noted and unremarkable. Stomach and bladder noted and satisfactory. Spine: Survey of the spine satisfactory with no anomalies identified nor imaged. Cervical, thoracic, lower spine appear normal. Both arms and legs noted. Amniotic Fluid: Adequate. MVP 6.55 cm Measurements: Average ultrasound age 21weeks 2days. Estimated due date by ultrasound age 0407/06/2024. Estimated weight 397g BPD = 21weeks 4days HC = 21weeks 0 days AC = 21weeks 3days FL = 20weeks 5days Growth Percentile= 72 Heart Rate = 135bpm Cerebellum = 20weeks 0 days Humerus = 21weeks 0 days HC/AC is 1.14 FL/BPD is 0.66 FL/AC is 0.21 IMPRESSION: 1. Viable fetus in the breech presentation with an anterior placenta grade 1. A placental Mcnulty is seen. 2. The fluid is within normal limits MVP 6.55 cm. 3. Anatomical scan appears normal. 4. biometry is consistent with the dates. Dictated by: Pascual Gamboa MD 02/26/2024 15:21 Pascual Gamboa MD in [facility] 02/26/2024 15:21
== END 2024-02-26 23:59 | disposition home or self-care (01) ==
LOC: RAD 13:16
PROVIDERS: PCP Nurse Practitioner Family; Visit Provider Obstetrics & Gynecology
DX: Z36.3 Encounter for antenatal screening for malformations (principal); Z3A.20 20 weeks gestation of pregnancy; F12.10 Cannabis abuse, uncomplicated
CPT/HCPCS: 76811

== ENCOUNTER 2024-04-27 12:06 | Outpatient (CLI) | payer OTHER, SELFPAY ==
[2024-04-27 13:22] LABS: Basophils # 0.1 K/mm3 (0-0.2); Basophils % 0.5 % (0.1-2.0); Eosinophils # 0.2 K/mm3 (0.0-0.4); Eosinophils % 1.2 % (0.1-12.0); Hematocrit 34.4 % (37.0-47.0); Hemoglobin 11.9 g/dL (12.2-16.2); Lymphocytes % 15.9 % (10-50); Mean Corpuscular HGB Conc 34.6 g/dL (31.8-35.4); Mean Corpuscular Hemoglobin 30.5 pg (27.0-31.2); Mean Corpuscular Volume 88.2 fl (81-99); Mean Platelet Volume 10.8 fl (7.4-10.4); Monocytes # 0.9 K/mm3 (0.1-1.0); Monocytes % 6.9 % (1.7-9.3); Neutrophils # 9.4 K/mm3 (1.8-7.8); Platelet Count 165 K/mm3 (142-424); Red Cell Distribution Width 12.8 % (11.5-17.5); White Blood Count 12.7 K/mm3 (4.8-10.8)
[2024-04-27 13:28] LABS: Glucose 1 Hour 80 mg/dL (74-100)
[2024-04-27 15:28] LABS: RPR W/RFX Titers Nonreactive (Nonreactive)
== END 2024-04-27 23:59 | disposition home or self-care (01) ==
LOC: LAB 12:07
PROVIDERS: Visit Provider Obstetrics & Gynecology
DX: Z34.92 Encounter for supervision of normal pregnancy, unspecified, second trimester (principal)
CPT/HCPCS: 36415; 82947; 85025; 86592

== ENCOUNTER 2024-06-04 13:07 | Outpatient (CLI) | payer OTHER, SELFPAY ==
--- NOTE | 2024-06-04 13:20 | US_ITS ---
PROCEDURE: US OB FOLLOW UP CLINICAL INDICATION: Check Growth and position COMPARISON: US US OB /MATERNAL DETAIL from 02/26/2024 FINDINGS: Transabdominal sonographic images of the pelvis were obtained. The following parameters are obtained: From her established due date she is 34weeks 6days Viable fetus in the cephalic presentation with an anterior placenta grade 2. The cervix measures 3.72 cm heart rate: 142bpm bpm. BPD: 35weeks 5days, 73 percentile HC: 35weeks 6days, 38 percentile AC: 35weeks 3days, 70 percentile FL: 33weeks 6days, 16 percentile HC/AC: 1.01 FL/BPD: 0.74 FL/AC: 0.21 Growth percentile: 50 Amniotic fluid index: 16.21cm, MVP 5.12 cm No obvious anomalies evident. profile seen, stomach, bladder, kidneys, three-vessel cord, four chamber heart appear normal. IMPRESSION: 1. Viable fetus in the cephalic presentation with an anterior placenta grade 2. 2. The fluid is within normal limits with an amniotic fluid index 16.21 cm, MVP 5.12 cm. 3. There has been good interval growth with the fetus currently 50th percentile. 4. Limited anatomical scan appears normal. Dictated by: Pascual Gamboa MD 06/04/2024 17:31 Pascual Gamboa MD in [place] 06/04/2024 17:31
== END 2024-06-04 23:59 | disposition home or self-care (01) ==
LOC: RAD 13:08
PROVIDERS: PCP Nurse Practitioner Family; Visit Provider Obstetrics & Gynecology
DX: Z36.89 Encounter for other specified antenatal screening (principal); O32.1XX0 Maternal care for breech presentation, not applicable or unspecified; Z3A.34 34 weeks gestation of pregnancy
CPT/HCPCS: 76816

== ENCOUNTER 2024-06-11 14:18 | Outpatient (CLI) | payer OTHER, SELFPAY | END 2024-06-11 23:59 | disposition home or self-care (01) | LOC: LAB.DROPOF 14:18 | PROVIDERS: PCP Nurse Practitioner Family; Visit Provider Obstetrics & Gynecology | DX: Z34.83 Encounter for supervision of other normal pregnancy, third trimester (principal); Z3A.35 35 weeks gestation of pregnancy | CPT/HCPCS: 86403 ==

== ENCOUNTER 2024-06-28 21:33 | Outpatient (CLI) | payer OTHER, SELFPAY ==
[2024-06-28 21:44] VITALS: BP 127/73; PULSE 77; RESP 18; TEMP 36.8; O2SAT 96; BMI 28.3
== END 2024-06-28 23:00 | disposition home or self-care (01) ==
LOC: OBOUT 21:34 → OB 21:35
PROVIDERS: PCP Nurse Practitioner Family; Visit Provider Obstetrics & Gynecology
DX: O36.8130 Decreased fetal movements, third trimester, not applicable or unspecified (principal); Z3A.38 38 weeks gestation of pregnancy
CPT/HCPCS: G0463

== ENCOUNTER 2024-07-05 19:37 | Inpatient (IN) | payer OTHER, SELFPAY ==
[2024-07-05 19:50] VITALS: BP 133/69; PULSE 93; RESP 18; TEMP 36.7; O2SAT 99; BMI 28.5
[2024-07-05 20:20] LABS: Microscopic, Urine URINE MICROSCOPIC (MICROSCOPIC)
[2024-07-05 20:23] LABS: Appearance,Urine CLEAR (Clear); Bilirubin,Urine Negative (Negative); Blood, Urine 2+ (Negative); Color,Urine YELLOW (Yellow); Glucose,Urine (UA) Negative (Negative); Ketones,Urine Negative (Negative); Leukocyte Esterase,Urine 3+ (Negative); Nitrate,Urine Negative (Negative); PH,Urine 7.5 (5.0-8.5); Protein,Urine Negative (Negative); Urobilinogen,Urine 0.2 EU/dl (0.2)
[2024-07-05 20:33] LABS: Basophils # 0.1 K/mm3 (0-0.2); Basophils % 0.4 % (0.1-2.0); Eosinophils % 0.1 % (0.1-12.0); Hematocrit 32.2 % (37.0-47.0); Hemoglobin 10.8 g/dL (12.2-16.2); Lymphocytes # 1.2 K/mm3 (0.7-4.5); Lymphocytes % 8.2 % (10-50); Mean Corpuscular HGB Conc 33.5 g/dL (31.8-35.4); Mean Corpuscular Hemoglobin 28.3 pg (27.0-31.2); Mean Corpuscular Volume 84.5 fl (81-99); Mean Platelet Volume 11.8 fl (7.4-10.4); Monocytes # 1.1 K/mm3 (0.1-1.0); Monocytes % 7.7 % (1.7-9.3); Neutrophils # 11.7 K/mm3 (1.8-7.8); Nucleated Red Blood Cells # 0 10^3/uL; Nucleated Red Blood Cells % 0 %; Platelet Count 163 K/mm3 (142-424); Red Blood Count 3.81 M/mm3 (4.20-5.40); Red Cell Distribution Width 12.5 % (11.5-17.5); Red Cell Distribution Width-SD 38.3 fL; White Blood Count 14.1 K/mm3 (4.8-10.8)
[2024-07-05 20:35] LABS: Benzodiazepines Screen,Urine Negative ng/ml (<200)
[2024-07-05 20:36] LABS: Amphetamine/Metha Screen,Urine Negative ng/ml (<1000)
[2024-07-05 20:37] LABS: Barbiturates Screen,Urine Negative ng/ml (<200); Methadone Screen,Urine Negative ng/ml (<300)
[2024-07-05 20:38] LABS: Cannabinoid Screen,Urine Negative ng/ml (<50); Cocaine Screen,Urine Negative ng/ml (<300)
[2024-07-05 20:39] LABS: Opiate Screen,Urine Negative ng/ml (<300)
[2024-07-05 20:40] LABS: Phencyclidine Screen,Urine Negative ng/ml (<25)
[2024-07-05 20:44] LABS: Bacteria,Urine 2+ /lpf; WBC,Urine 50-100 #/hpf (0-3)
[2024-07-05 20:46] LABS: RBC,Urine Occasional #/hpf (0-3)
[2024-07-05] MEDS: AMOXICILLIN 875 MG 1 EACH PO (22:15)
[2024-07-06] MEDS: DEXTROSE 5%-LACTATED RINGERS 1,000 ML 125 ML IV ×2 (00:34→10:01)
[2024-07-06] MEDS: LACTATED RINGERS 1000ML 1,000 ML 500 ML IV (00:35)
--- NOTE | 2024-07-06 01:22 | P.PNANES_ITS ---
[facility] Disclaimer: The information contained in this section may have been updated after the patient was seen, as this information can be updated by other users. Medical History Marijuana use during Abnormal uterine bleeding (AUB) Hot flashes Broken back Broken arm Bipolar II disorder Intrauterine growth restriction (IUGR) affecting care of mother 5% Positive urine drug screen +THC 07/09/17 History of chlamydia infection Surgical History History of wisdom tooth extraction History of tonsillectomy and adenoidectomy Family History Other Diabetes Hypertension Social History Smoking Status: Current every day smoker tobacco type: cigarettes packs per day: 1 second hand exposure: No alcohol intake: never substance use type: former substance user current occupational status: unemployed Travel in the last 8 weeks?: None number of children: 1 current occupational exposures/hazards: No caffeine: No Have you lived/traveled outside [place] in past 30 days?: No Contact w/someone who lives/traveled outside US past 30 days?: No Exposure to someone with infectious disease in past 14 days?: No Do you have a fever (greater than 100.4 F or 38 C)?: No Have you tested positive for COVID-19?: No Exposed to someone with COVID-19 in past 14 days?: No Do you have a sore throat?: No Do you have a cough?: No Do you have any weakness?: No Do you have any diarrhea?: No Are you experiencing any unusual bleeding?: No Do you have any muscle aches/pain?: No Do you have any abdominal pain?: No Are you experiencing loss of taste or smell?: No [facility] Anesthesia Checklist Patient Identification Patient Identification: Verbal (Name & ) Structural Data Admitted From: Inpatient Planned Operative Procedure/s: labor epidural Consent for Planned Operative Procedure(s) Verified: Yes Airway Assessment Mallampati Score:: Class II C-Spine Mobility Assessed: Yes TMJ Mobility Assessed: Yes Dentition: Good Dentition Neurological Assessment Level of Consciousness: Awake, Alert and Appropriate Anesthesia Plan Anesthesia Risk discussed: Yes Anesthesia Plan: Verified ASA Class: II Anesthesia Type: Epidural
[2024-07-06] MEDS: LACTATED RINGERS 1000ML 1,000 ML 250 ML IV (04:00)
[2024-07-06] MEDS: ePHEDrine SULF 50MG/ML VIAL 10 MG IV (05:49)
[2024-07-06 07:10] LABS: RPR W/RFX Titers Nonreactive (Nonreactive)
--- NOTE | 2024-07-06 07:55 | P.CONPHA_ITS ---
Pharmacy Intervention Comments: MEDICATION RECONCILIATION COMPLETED ON PATIENT USING EXTERNAL FILL HISTORY FROM PHARMACY AND LIST FROM CONFERENCE SERVICES DIRECTOR OFFICE. -SUSSY BRONSOND
--- NOTE | 2024-07-06 07:55 | HMH.PHAINT1 ---
Pharmacy Intervention Comments: MEDICATION RECONCILIATION COMPLETED ON PATIENT USING EXTERNAL FILL HISTORY FROM PHARMACY AND LIST FROM [facility]. -SUSSY BRONSOND
--- NOTE | 2024-07-06 08:29 | P.HP_ITS ---
History of Present Illness *Admission Date: 07/05/24 *Reason for visit:: Labor *History of present illness: Levi Lassiter is a 23-year-old at 39 weeks and 3 days gestation who presented to labor and delivery with regular painful contractions. Her has been uncomplicated. On presentation patient endorsed good movement and denies any leakage of fluid or vaginal bleeding. B+, antibody negative, rubella immune, hepatitis B negative, hepatitis C negative, RPR negative, HIV negative 1 hour GTT: 80 GBS negative PFSH PFSH Disclaimer: The information contained in this section may have been updated after the patient was seen, as this information can be updated by other users. Medical History Marijuana use during Abnormal uterine bleeding (AUB) Hot flashes Broken back Broken arm Bipolar II disorder Intrauterine growth restriction (IUGR) affecting care of mother 5% Positive urine drug screen +THC 07/09/17 History of chlamydia infection Surgical History History of wisdom tooth extraction History of tonsillectomy and adenoidectomy Family History Other Diabetes Hypertension Social History Smoking Status: Current every day smoker tobacco type: cigarettes packs per day: 1 second hand exposure: No alcohol intake: never substance use type: former substance user current occupational status: unemployed Travel in the last 8 weeks?: None number of children: 1 current occupational exposures/hazards: No caffeine: No Have you lived/traveled outside [place] in past 30 days?: No Contact w/someone who lives/traveled outside US past 30 days?: No Exposure to someone with infectious disease in past 14 days?: No Do you have a fever (greater than 100.4 F or 38 C)?: No Have you tested positive for COVID-19?: No Exposed to someone with COVID-19 in past 14 days?: No Do you have a sore throat?: No Do you have a cough?: No Do you have any weakness?: No Do you have any diarrhea?: No Are you experiencing any unusual bleeding?: No Do you have any muscle aches/pain?: No Do you have any abdominal pain?: No Are you experiencing loss of taste or smell?: No Other Medical History Have you received the Flu Vaccine for this season: No Have you received the Pneumonia Vaccine: No Review of Systems Review of Systems Review of systems (narrative): Review of Systems Constitutional: Denies fever, chills, and sweats Eyes: Denies vision change/ pain Respiratory: Denies cough and shortness of breath Cardiovascular: Denies chest pain and lightheadedness Gastrointestinal: Admits abdominal pain with contractions. Denies nausea, vomiting. Genitourinary: Denies dysuria and incontinence Musculoskeletal: Denies shoulder pain and back pain Neurological: Denies change in speech or headaches Meds Home Medications and Allergies Home Medications ?Medication ?Instructions ?Recorded ?Confirmed ?Type albuterol sulfate 90 mcg/actuation 2 inh inhalation Q4HP PRN 06/01/24 07/06/24 History aerosol inhaler (Ventolin HFA) Shortness Of Breath cetirizine 10 mg tablet 10 mg PO DAILY 06/01/24 07/06/24 History amoxicillin 875 mg tablet 875 mg PO BID 07/05/24 07/05/24 History ondansetron 4 mg disintegrating 4 mg PO Q8HP PRN Nausea And 07/06/24 07/06/24 History tablet Vomiting New Prescriptions to Start Prescriptions: Allergies Allergy/AdvReac Type Severity Reaction Status Date / Time No Known Allergies Allergy Verified 07/01/24 13:05 Exam Data for Last 24 hours Vital signs and Labs for Last 24 Hours: Temp Pulse Resp BP Pulse Ox O2 Del Method 98.0 F 93 H 18 133/69 99 Room Air 07/05/24 19:50 07/05/24 19:50 07/05/24 19:50 07/05/24 19:50 07/05/24 19:50 07/05/24 19:50 Laboratory Results - last 24 hr 07/05/24 19:40: Urine Color Yellow, Urine Appearance Clear, Urine pH 7.5, Ur Specific [place] 1.010, Urine Protein Negative, Urine Glucose (UA) Negative, Urine Ketones Negative, Urine Blood 2+ A, Urine Nitrate Negative, Urine Bilirubin Negative, Urine Urobilinogen 0.2, Ur Leukocyte Esterase 3+ A, Urine RBC Occasional, Urine WBC 50-100, Ur Squamous Epith Cells 5-10, Ur Transition Epith Cell 3-5, Urine Bacteria 2+, Urine Opiates Screen Negative, Urine Methadone Screen Negative, Ur Barbituates Screen Negative, Ur Phencyclidine Scrn Negative, Ur Amphetamines Screen Negative, U Benzodiazepines Scrn Negative, Urine Cocaine Screen Negative, U Marijuana (THC) Screen Negative 07/05/24 20:08: WBC 14.1 H, RBC 3.81 L, Hgb 10.8 L, Hct 32.2 L, MCV 84.5, MCH 28.3, MCHC 33.5, RDW 12.5, Plt Count 163, MPV 11.8 H, Neut % (Auto) 83.0 H, Lymph % (Auto) 8.2 L, [place] % (Auto) 7.7, Eos % (Auto) 0.1, Baso % (Auto) 0.4, Neut # (Auto) 11.7 H, Lymph # (Auto) 1.2, [place] # (Auto) 1.1 H, Eos # (Auto) 0.0, Baso # (Auto) 0.1, RPR w/Rflx to Titer Nonreactive, Blood Type B Positive, Antibody Screen Negative I & O for Last 24 hours: Intake & Output 07/03/24 07/04/24 07/05/24 07/06/24 23:59 23:59 23:59 23:59 Weight 156 lb Narrative: General: patient is alert oriented in no acute distress and responds appropriately to questions. HEENT: NCAT, EOMI, moist mucous membranes, neck supple with full ROM Cardiovascular: RRR +S1/S2, no murmurs or rubs Pulmonary: Clear to auscultation bilaterally, nonlabored breathing, symmetric chest rise Abdominal: Gravid abdomen appropriate for gestation. No guarding, rebound, or tenderness noted. SVE: on exam this mornin90/-2. AROM, clear fluid Extremities: trace edema, no tenderness or cyanosis noted Skin: Normal turgor, intact, warm. Negative for erythema, pallor, petechia, or lesions Neurologic: Negative for sensory or motor deficit Psychiatric: Normal affect, normal thought process, good judgment and insight, no depression or anxious mood appreciated. *Routine HEENT Exam Head: Present normocephalic and atraumatic Eye: Present EOMI, PERRL and normal accommodation; Absent conjunctival icterus, scleral injection, nystagmus or exophthalmos ENT: Present mucous membranes moist *Routine Respiratory Exam Respiratory: Present CTA bilaterally, normal respiratory effort, able to speak in complete sentences and symmetric chest movement; Absent accessory muscle use, decreased breath sounds, rales, respiratory distress, wheezes, distant breath sounds or diminished air movement *Routine Cardiovascular Exam Cardiovascular: Present RRR, Normal S1 and Normal S2; Absent murmur or gallop *Routine Abdominal Exam Abdominal: Present soft and normoactive bowel sounds; Absent tenderness, distended, rebound or guarding *Routine Rectal Exam Rectal:: deferred *Routine Genitalia Exam Genitalia:: normal female Assessment and Plan *Assessment and plan (1) Marijuana use during : Status: Acute Category: Medical Code(s): O99.320 - Drug use complicating , unspecified trimester; F12.90 - Cannabis use, unspecified, uncomplicated (2) Trichomoniasis: Status: Acute Category: Medical Code(s): A59.9 - Trichomoniasis, unspecified (3) Anxiety and depression: Status: Acute Category: Medical Code(s): F41.9 - Anxiety disorder, unspecified; F32.A - Depression, unspecified Plan - Monitor vitals - Admit to L&D for labor monitoring and delivery - Plan for augmentation of labor with AROM and pitocin if required. - External FHR and TOCO monitor - GBS neg/ Blood type: B+ - Hemoglobin: 10.8, Plt: 163 - Plan for epidural anesthesia - Anticipate vaginal delivery of male : Steven
[2024-07-06] MEDS: AMOXICILLIN 875 MG 1 EACH PO ×2 (09:07→20:40)
[2024-07-06] MEDS: OXYTOCIN/RINGERS LACTATE 30 UNITS/500 ML BAG IV (11:20)
[2024-07-06] MEDS: OXYTOCIN/RINGERS LACTATE 30 UNITS/500 ML BAG 40 UNITS IV (11:59)
--- NOTE | 2024-07-06 12:47 | EXP.DN ---
Delivery Note Delivery Date:: 07/06/24 Delivery Time:: 11:50 Anesthesia Type: Epidural Was labor medically induced?: No Gestational age (weeks): 39 delivered prior to 39 weeks?: No Gender: Male at 1 minute: 7 at 5 minutes: 8 Delivery Procedure:: Preoperative diagnosis: 1. at 39 completed this weeks gestation, vertex 2. Rh positive 3. GBS negative Postoperative diagnosis: 1. at 39 completed this weeks gestation, vertex 2. Rh positive 3. GBS negative EBL: 200mL Specimen: 1. Cord blood Findings: 1. Liveborn viable male : Brandyn. Apgars 7/8 at 1 and 5 minutes respectively. Weight: 7lb 9oz, 3444g. 2. First degree midline perineal laceration and periurethral/periclitoral Complications: None Procedure: Nonoperative spontaneous vaginal delivery Levi Lassiter is a 23-year-old -0-1-1 who presented to labor and delivery last night with regular painful contractions. She progressed to 7 cm. She received an epidural for anesthesia. She had artificial rupture of membranes revealing clear fluid. Her labor was noted to stall and Pitocin was started at approximately 2 to 3 hours after AROM with no cervical change. She progressed to complete. The infant was noted to be in KHOA position. With effective maternal pushing there was a nonoperative spontaneous vaginal delivery at 1150. There was no nuchal cord. The anterior right shoulder delivered, followed by the posterior shoulder without dystocia. The body and lower extremities delivered without difficulty. The infant was bulb suctioned and was crying immediately following delivery. The infant was placed on the maternal abdomen and greater than two minutes were appreciated for delayed cord clamping. The umbilical cord was doubly clamped and cut. Cord blood was collected and sent for routine testing. The placenta delivered with cord traction and suprapubic contertraction. Pitocin was started. The uterus was firm and bleeding was minimal. The perineum, vaginal dalton, cervix, and paraurethral area were inspected thoroughly. There was a first-degree midline perineal laceration. There was periurethral/periclitoral laceration noted. 1% Lidocaine, 10ml, was injected during the repair due to patient discomfort. The laceration was repaired in the usual fashion using 2-0 Vicryl suture. The laceration was hemostatic. The cervix and vaginal dalton were inspected and noted to be hemostatic. This concluded the delivery. The patient was counseled regarding the events of the delivery and repair. The patient tolerated the delivery well. All counts were correct by nursing. Mother and were doing well and bonding upon my leaving the delivery room. Laceration:: vaginal Placental Delivery Description: Spontaneous
[2024-07-06] MEDS: SENNA 8.6MG TABLET 8.6 MG PO (20:39)
[2024-07-06] MEDS: IBUPROFEN 400 MG TABLET 800 MG PO (20:39)
[2024-07-06] MEDS: ACETAMINOPHEN 500MG TAB 1000 MG PO (20:39)
[2024-07-07 04:55] LABS: Basophils # 0.1 K/mm3 (0-0.2); Basophils % 0.5 % (0.1-2.0); Eosinophils # 0.1 Kmm3 (0.0-0.4); Eosinophils % 0.9 % (0.1-12.0); Hematocrit 30.7 % (37.0-47.0); Lymphocytes # 1.8 K/mm3 (0.7-4.5); Lymphocytes % 15.7 % (10-50); Mean Corpuscular HGB Conc 32.6 g/dL (31.8-35.4); Mean Corpuscular Hemoglobin 28.2 pg (27.0-31.2); Mean Corpuscular Volume 86.5 fl (81-99); Mean Platelet Volume 11.2 fl (7.4-10.4); Monocytes # 0.9 K/mm3 (0.1-1.0); Neutrophils # 8.4 K/mm3 (1.8-7.8); Neutrophils % 73.7 % (37.0-80.0); Nucleated Red Blood Cells # 0 10^3/uL; Nucleated Red Blood Cells % 0 %; Platelet Count 145 K/mm3 (142-424); Red Blood Count 3.55 M/mm3 (4.20-5.40); Red Cell Distribution Width 12.8 % (11.5-17.5); Red Cell Distribution Width-SD 40.3 fL; White Blood Count 11.4 K/mm3 (4.8-10.8)
[2024-07-07] MEDS: AMOXICILLIN 875 MG 1 EACH PO ×2 (09:45→22:40)
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
[2024-07-07] MEDS: ACETAMINOPHEN 500MG TAB 1000 MG PO (16:07)
[2024-07-07] MEDS: IBUPROFEN 400 MG TABLET 800 MG PO (16:07)
[2024-07-07] MEDS: PRENATAL MULTIVITAMIN W/IRON 1 EACH PO (16:08)
--- NOTE | 2024-07-07 16:36 | P.PN_ITS ---
Subjective *Date: 07/07/24 *Time: 16:36 Interval history: Levi Lassiter is a G2, P1 day #1 following a normal spontaneous vaginal delivery at 39 weeks and 3 days gestation. was uncomplicated. Routine delivery and course. She is doing well, sitting up in bed and caring for the infant this morning when I saw him. -Reports pain is well-controlled -Reports she is tolerating p.o. without nausea or vomiting. -Reports her lochia is scant. -Undecided on contraception -She is breast-feeding her male infant and supplementing with formula -Ambulating, voiding difficulty or dysuria. Denies chest pain shortness of breath or pain in her legs. No further complaints at this time. Exam Data for Last 24 hours Vital signs and Labs for Last 24 Hours: Temp Pulse Resp BP Pulse Ox O2 Del Method 98.0 F 93 H 18 133/69 99 Room Air 07/05/24 19:50 07/05/24 19:50 07/05/24 19:50 07/05/24 19:50 07/05/24 19:50 07/05/24 19:50 Laboratory Results - last 24 hr 07/07/24 04:36: WBC 11.4 H, RBC 3.55 L, Hgb 10.0 L, Hct 30.7 L, MCV 86.5, MCH 28.2, MCHC 32.6, RDW 12.8, Plt Count 145, MPV 11.2 H, Neut % (Auto) 73.7, Lymph % (Auto) 15.7, [place] % (Auto) 8.0, Eos % (Auto) 0.9, Baso % (Auto) 0.5, Neut # (Auto) 8.4 H, Lymph # (Auto) 1.8, [place] # (Auto) 0.9, Eos # (Auto) 0.1, Baso # (Auto) 0.1 I & O for Last 24 hours: Intake & Output 07/04/24 07/05/24 07/06/24 07/07/24 23:59 23:59 23:59 23:59 Weight 156 lb Narrative: General: patient is alert oriented in no acute distress and responds appropriately to questions. Appears to be in minimal pain. HEENT: NCAT, EOMI, moist mucous membranes, neck supple with full ROM Cardiovascular: RRR +S1/S2, no murmurs or rubs Pulmonary: Clear to auscultation bilaterally, nonlabored breathing, symmetric chest rise Abdominal: Fundus below the umbilicus, firm, and tenderness appropriate for the period. Extremities: trace edema, no tenderness or cyanosis noted Skin: Normal turgor, intact, warm. Negative for erythema, pallor, petechia, or lesions Neurologic: Negative for sensory or motor deficit Psychiatric: Normal affect, normal thought process, good judgment and insight, no depression or anxious mood appreciated. Assessment and Plan *Assessment and plan (1) Marijuana use during : Status: Acute Category: Medical Code(s): O99.320 - Drug use complicating , unspecified trimester; F12.90 - Cannabis use, unspecified, uncomplicated (2) Trichomoniasis: Status: Acute Category: Medical Code(s): A59.9 - Trichomoniasis, unspecified (3) Anxiety and depression: Status: Acute Category: Medical Code(s): F41.9 - Anxiety disorder, unspecified; F32.A - Depression, unspecified (4) Normal vaginal delivery: Status: Resolved Category: Medical Code(s): O80 - Encounter for full-term uncomplicated delivery Plan Stable. PPD#1 s/p -Doing well. VSS. Serial lochia and fundal checks. -Continue with perineal ice packs for discomfort -Hemoglobin: 10.8--> 10.0 -B+/antibody negative -Breast and bottle feeding, male -Contraception: undecided -Follow-up 2 weeks for routine visit -Dispo: home in 1-3 days pending mother/infant status
[2024-07-07 20:22] VITALS: BP 119/66; PULSE 54; RESP 16; TEMP 36.5; O2SAT 100
[2024-07-08 05:08] VITALS: BP 115/61; PULSE 64; RESP 17; TEMP 36.7; O2SAT 100
[2024-07-08 08:39] VITALS: BP 120/77; PULSE 61; RESP 18; TEMP 36.5; O2SAT 100
[2024-07-08] MEDS: ACETAMINOPHEN 500MG TAB 1000 MG PO ×2 (08:41→16:43)
[2024-07-08] MEDS: LORATADINE 10MG TABLET 10 MG PO (08:41)
[2024-07-08] MEDS: AMOXICILLIN 875 MG 1 EACH PO (08:42)
[2024-07-08] MEDS: SENNA 8.6MG TABLET 8.6 MG PO (09:03)
[2024-07-08] MEDS: IBUPROFEN 400 MG TABLET 800 MG PO (16:43)
[2024-07-08] MEDS: PRENATAL MULTIVITAMIN W/IRON 1 EACH PO (16:45)
--- NOTE | 2024-07-08 16:47 | P.DS_ITS ---
General Admission date:: 07/05/24 Discharge date: 07/08/24 HPI HPI HPI: Levi Lassiter is a 23-year-old at 39 weeks and 3 days gestation who presented to labor and delivery with regular painful contractions. Her has been uncomplicated. On presentation patient endorsed good movement and denies any leakage of fluid or vaginal bleeding. B+, antibody negative, rubella immune, hepatitis B negative, hepatitis C negative, RPR negative, HIV negative 1 hour GTT: 80 GBS negative Hospital Course Hospital Course Hospital Course: Levi Lassiter is a G2, P2 day #2 following a normal spontaneous vaginal delivery at 39 weeks 3 days gestation. She has done well . She delivered a live viable male infant on 07/06/2024 at 11:50 AM. Apgars were 7 and 8 at 1 and 5 minutes respectively. Infant weighed 7 pounds 9 ounces, 3444 g. Infant name: Brandyn. She is breast and bottlefeeding. She had a first- degree and a periurethral/periclitoral laceration that we will repaired without difficulty. She is rubella immune and GBS negative Her lochia has been scant, her blood type: B+. She has done well and has remained afebrile with her at her hospitalization. She is eating and drinking and ambulating. She will be discharged home to follow-up with Dr. Gonzales in 2 weeks time. She will continue with her vitamins and iron. She will take ibuprofen as well. She was given the usual instructions with respect to limiting her activity, driving and sexual activity. She was given instructions with respect to wound care. Her condition on discharge is stable and improved. Exam Data for Last 24 hours Vital signs and Labs for Last 24 Hours: Temp Pulse Resp BP Pulse Ox O2 Del Method 97.7 F 61 18 120/77 100 Room Air 07/08/24 08:39 07/08/24 08:39 07/08/24 08:39 07/08/24 08:39 07/08/24 08:39 07/08/24 08:39 I & O for Last 24 hours: Intake & Output 07/05/24 07/06/24 07/07/24 07/08/24 23:59 23:59 23:59 23:59 Weight 156 lb Microbiology Reports for the Last 24 Hours: Microbiology 07/05/24 19:40 Urine,Clean Catch Urine Culture - Final Multiple organisms, suggests contamination. Narrative: General: patient is alert oriented in no acute distress and responds appropriately to questions. Appears to be in minimal pain. HEENT: NCAT, EOMI, moist mucous membranes, neck supple with full ROM Cardiovascular: RRR +S1/S2, no murmurs or rubs Pulmonary: Clear to auscultation bilaterally, nonlabored breathing, symmetric chest rise Abdominal: Fundus below the umbilicus, firm, and tenderness appropriate for the period. Extremities: trace edema, no tenderness or cyanosis noted Skin: Normal turgor, intact, warm. Negative for erythema, pallor, petechia, or lesions Neurologic: Negative for sensory or motor deficit Psychiatric: Normal affect, normal thought process, good judgment and insight, no depression or anxious mood appreciated. DS: Diagnosis Discharge Diagnosis (1) Marijuana use during : Status: Acute Code(s): O99.320 - Drug use complicating , unspecified trimester; F12.90 - Cannabis use, unspecified, uncomplicated (2) Trichomoniasis: Status: Acute Code(s): A59.9 - Trichomoniasis, unspecified (3) Anxiety and depression: Status: Acute Code(s): F41.9 - Anxiety disorder, unspecified; F32.A - Depression, unspecified (4) Normal vaginal delivery: Status: Resolved Code(s): O80 - Encounter for full-term uncomplicated delivery Meds Home Medications and Allergies Home Medications ?Medication ?Instructions ?Recorded ?Confirmed ?Type albuterol sulfate 90 mcg/actuation 2 inh inhalation Q4HP PRN 06/01/24 07/06/24 History aerosol inhaler (Ventolin HFA) Shortness Of Breath cetirizine 10 mg tablet 10 mg PO DAILY 06/01/24 07/06/24 History amoxicillin 875 mg tablet 875 mg PO BID 07/05/24 07/05/24 History ondansetron 4 mg disintegrating 4 mg PO Q8HP PRN Nausea And 07/06/24 07/06/24 History tablet Vomiting acetaminophen 500 mg tablet 500 mg PO Q6H PRN fever or pain 07/08/24 Rx #30 tabs ferrous sulfate 325 mg (65 mg 325 mg PO DAILY #30 tabs 07/08/24 Rx iron) tablet,delayed release ibuprofen 800 mg tablet 800 mg PO Q8H PRN pain #60 tabs 07/08/24 Rx New Prescriptions to Start Prescriptions: acetaminophen Nicole Gonzales ferrous sulfate Nicole Gonzales ibuprofen Nicole Gonzales Allergies Allergy/AdvReac Type Severity Reaction Status Date / Time No Known Allergies Allergy Verified 07/01/24 13:05 Discharge Plan Disposition Patient Disposition: Home, Self-Care Discharge Order Discharge Orders: Discharge Order (Routine); Ordered 07/08/24 Ordered By: Nicole Gonzales Follow up Plan Follow up with: Nicole Gonzales DO [Staff Physician] - 07/21/24 11:15 am Prescriptions/Medication Reconciliation: New ibuprofen 800 mg tablet 800 mg PO Q8H PRN (Reason: pain) Qty: 60 2RF acetaminophen 500 mg tablet 500 mg PO Q6H PRN (Reason: fever or pain) Qty: 30 3RF ferrous sulfate 325 mg (65 mg iron) tablet,delayed release (DR/EC) 325 mg PO DAILY Qty: 30 3RF Continued cetirizine 10 mg tablet 10 mg PO DAILY albuterol sulfate [Ventolin HFA] 90 mcg/actuation HFA aerosol inhaler 2 inh inhalation Q4HP PRN (Reason: Shortness Of Breath) amoxicillin 875 mg tablet 875 mg PO BID Rx Instructions: for 10 days starting 07/05/24 ondansetron 4 mg tablet,disintegrating 4 mg PO Q8HP PRN (Reason: Nausea And Vomiting) Problem Reconciliation Problems Reviewed?: Yes Patient Discharge Instructions ACTIVITY: Continue current activity DIET: regular diet Additional Instructions: Congratulations on the delivery of your sweet baby boy. It is my privilege to be your doctor and I am so thankful I could be a part of your special day. Discharge: -Take 800 mg Ibuprofen every 8 hours as needed for pain. You can also take 500- 1000 mg of Tylenol in between doses, every 6-8 hours. -Colace can be taken 1-2 times per day as you need to soften your stool. Make sure to drink at least 8 cups of water per day. -Iron supplements can make you constipated. You can take iron tablets every other day if constipation is too bad. -Nothing in the vagina for 6 weeks - no intercourse, douching, tampons. No tub baths or swimming pools. -Do not lift greater than 20pounds for 2 weeks, this is the equivalent of 2 gallons of milk. -Reasons to return to L&D or call On-Call doctor - fever (greater than 100.4) - heavy vaginal bleeding (soaking through 1 pad in less than 2 hours or passing clots that are egg sized) - vaginal discharge (malodorous and/or purulent) - severe headaches, leg tenderness/edema, or any other symptoms that warrant immediate medical attention. depression/blues - Normal to feel anxious/overwhelmed for first 2 weeks - Talk to your doctor if: anxiety lasts over 2 weeks, trouble bonding with baby, withdrawing from other family members, thoughts of harming yourself or others Blood pressure and preeclampsia instructions -Please go to the emergency room or labor and delivery triage if any value is higher than: 160 systolic (the top number) or 110 diastolic (the bottom number). -Please call if unrelenting headache (does not go away with rest or Tylenol or ibuprofen), changes in vision (spots, floaters, flashes of light), chest pain, shortness of breath, or right upper quadrant (liver) abdominal pain. Nicole Gonzales DO [facility] [phone] *Nothing in the Vagina for 6 weeks* *No strenuous activity* *No heavy lifting* *No tub baths until okay's by MD* Patient Instructions: Depression, Hemorrhage, DI for Labor and Delivery, Vaginal , DI for Pre-eclampsia, [facility] Post Discharge Instructions Print Language: Mongolian Providers Primary Care Provider: Sanchez Lambert Admit Provider: Nicole Gonzales Attending Provider: Nicole Gonzales
== END 2024-07-08 17:25 | disposition home or self-care (01) | DRG 806 ==
PROVIDERS: Admitting Provider Obstetrics & Gynecology; PCP Nurse Practitioner Family; Visit Provider Obstetrics & Gynecology
DX: O70.0 First degree perineal laceration during delivery (principal); F31.81 Bipolar II disorder; Z37.0 Single live birth; Z3A.39 39 weeks gestation of pregnancy; O99.334 Smoking (tobacco) complicating childbirth; F17.210 Nicotine dependence, cigarettes, uncomplicated
CPT/HCPCS: 59025; 80307; 81001; 85025; 86592; 86850; 87086; 94761; G0283; J3010; J7120

== ENCOUNTER 2024-07-23 12:27 | Emergency (ER) | payer OTHER, SELFPAY ==
[2024-07-23 12:32] VITALS: BP 123/88; PULSE 67; O2SAT 99
[2024-07-23 12:34] VITALS: BP 123/88; PULSE 73; RESP 20; TEMP 37.1; O2SAT 99; BMI 25.6
[2024-07-23 13:00] VITALS: BP 125/76; PULSE 58; O2SAT 99
[2024-07-23] MEDS: ACETAMINOPHEN 500MG TAB 1000 MG PO (13:15)
[2024-07-23] MEDS: DEXAMETHASONE 4MG/ML 1ML VIAL 10 MG IV (13:16)
[2024-07-23] MEDS: LACTATED RINGERS 1000ML 1,000 ML 999 ML IV (13:16)
[2024-07-23] MEDS: METOCLOPRAMIDE HCL 10MG/2ML VIAL 10 MG IVP (13:16)
[2024-07-23] MEDS: KETOROLAC 30MG/ML VIAL 15 MG IV (13:16)
[2024-07-23 13:24] LABS: Basophils # 0.1 K/mm3 (0-0.2); Basophils % 2.2 % (0.1-2.0); Eosinophils # 0.2 Kmm3 (0.0-0.4); Eosinophils % 3.6 % (0.1-12.0); Hematocrit 40.9 % (37.0-47.0); Hemoglobin 13.1 g/dL (12.2-16.2); Immature Granulocytes # 0.02 10^3uL; Immature Granulocytes % 0.3 %; Lymphocytes # 1.8 K/mm3 (0.7-4.5); Lymphocytes % 31.8 % (10-50); Mean Corpuscular Hemoglobin 27.7 pg (27.0-31.2); Mean Corpuscular Volume 86.5 fl (81-99); Mean Platelet Volume 10.3 fl (7.4-10.4); Monocytes # 0.4 K/mm3 (0.1-1.0); Monocytes % 7.4 % (1.7-9.3); Neutrophils # 3.2 K/mm3 (1.8-7.8); Neutrophils % 54.7 % (37.0-80.0); Nucleated Red Blood Cells # 0 10^3/uL; Nucleated Red Blood Cells % 0 %; Platelet Count 309 K/mm3 (142-424); Red Blood Count 4.73 M/mm3 (4.20-5.40); Red Cell Distribution Width-SD 38.4 fL; White Blood Count 5.8 K/mm3 (4.8-10.8)
[2024-07-23 13:30] VITALS: BP 118/76; PULSE 56; O2SAT 98
[2024-07-23 13:38] LABS: Alanine Aminotransferase 26 U/L (12-78); Albumin Level 4.3 g/dl (3.5-5.0); Albumin/Globulin Ratio 1.5 (1.1-1.8); Alkaline Phosphatase 94 U/L (38-126); Anion Gap 9.6 mEq/L (5-15); Aspartate Amino Transferase 33 U/L (14-36); Bilirubin,Total 0.7 mg/dl (0.2-1.3); Blood Urea Nitrogen 14 mg/dl (7-17); Calcium 9.4 mg/dl (8.4-10.2); Carbon Dioxide 27 mmol/L (22.0-30.0); Chloride 106 mmol/L (98-107); Creatinine Clearance Estimated 123 mL/min (50-200); Estimated Glomerular Filt Rate 102 ml/min (>60); GFR (African American) 123 ML/MIN (>60); Globulin 2.9 g/dL (1.3-3.2); Glucose 85 mg/dl (74-100); Potassium 4.6 mmoL/L (3.5-5.1); Sodium 138 mmol/L (136-145); Total Protein,Serum 7.2 g/dl (6.3-8.2)
--- NOTE | 2024-07-23 13:59 | HMH.EDGENADL ---
Discharge Plan Disposition Patient Disposition: Home, Self-Care Chief Complaint: Headache Prescriptions Prescriptions: No Action cetirizine 10 mg tablet 10 mg PO DAILY albuterol sulfate [Ventolin HFA] 90 mcg/actuation HFA aerosol inhaler 2 inh inhalation Q4HP PRN (Reason: Shortness Of Breath) amoxicillin 875 mg tablet 875 mg PO BID Rx Instructions: for 10 days starting 07/05/24 ondansetron 4 mg tablet,disintegrating 4 mg PO Q8HP PRN (Reason: Nausea And Vomiting) ibuprofen 800 mg tablet 800 mg PO Q8H PRN (Reason: pain) Qty: 60 2RF acetaminophen 500 mg tablet 500 mg PO Q6H PRN (Reason: fever or pain) Qty: 30 3RF ferrous sulfate 325 mg (65 mg iron) tablet,delayed release (DR/EC) 325 mg PO DAILY Qty: 30 3RF Referrals Follow up/Referrals: Sanchez Lambert APRN [Primary Care Provider] - See instructions Activity Restrictions/Add. Instructions Additional Instructions/Restrictions: Call your family doctor to establish care for this visit to the emergency department and schedule follow-up within 48 hours to ensure improvement. If you have any worsening of your condition or any other concerning signs or symptoms, return to the emergency department or your primary care doctor for further evaluation. Clinical Impressions Clinical Impression: Migraine Print Language Print Language: Luxembourgish Discharge ED Provider: Bradley Hoffman General Adult HPI General Chief complaint: Headache Stated complaint: 2 weeks -consis H/A since giving Time Seen by Provider: 07/23/24 12:31 Mode of Arrival: Ambulatory Source of Information: Patient Description of Symptoms (Recalled from ER Triage Doc. by RN): Patient presents to ED with ANDERSON. Patient is x2 weeks , had a vaginal delivery with no issues. Patient reports she did get an epidural for . Patient rates pain 5/10, and has been dizzy at times. Denies vision changes. History of Present Illness HPI narrative: Please note that above description of symptoms, in this electronic medical record under categorization of recalled from ER triage doctor by RN are reflective of an initial nursing assessment, however, is not reflective of my full history and physical exam that was personally taken and clarified. Consequentially, this preceding description of symptoms, which may include the patient's categorized chief complaint in the EMR, do not reflect my personal clinical impression, and the ultimate description of history of present illness and patient stated complaints should be deferred to this section of the note. Unless stated otherwise or congruent with this section of the note, additional signs, symptoms, or incongruence should be interpreted as inaccurate with my clinical impression. Related Data Home Medications ?Medication ?Instructions ?Recorded ?Confirmed albuterol sulfate 90 mcg/actuation 2 inh inhalation Q4HP PRN 06/01/24 07/06/24 aerosol inhaler (Ventolin HFA) Shortness Of Breath cetirizine 10 mg tablet 10 mg PO DAILY 06/01/24 07/06/24 amoxicillin 875 mg tablet 875 mg PO BID 07/05/24 07/05/24 ondansetron 4 mg disintegrating 4 mg PO Q8HP PRN Nausea And 07/06/24 07/06/24 tablet Vomiting Previous Rx's ?Medication ?Instructions ?Recorded acetaminophen 500 mg tablet 500 mg PO Q6H PRN fever or pain 07/08/24 #30 tabs ferrous sulfate 325 mg (65 mg 325 mg PO DAILY #30 tabs 07/08/24 iron) tablet,delayed release ibuprofen 800 mg tablet 800 mg PO Q8H PRN pain #60 tabs 07/08/24 Allergies Allergy/AdvReac Type Severity Reaction Status Date / Time No Known Allergies Allergy Verified 07/01/24 13:05 [facility] Disclaimer: The information contained in this section may have been updated after the patient was seen, as this information can be updated by other users. Medical History Marijuana use during Abnormal uterine bleeding (AUB) Hot flashes Broken back Broken arm Bipolar II disorder Intrauterine growth restriction (IUGR) affecting care of mother 5% Positive urine drug screen +THC 07/09/17 History of chlamydia infection Surgical History History of wisdom tooth extraction History of tonsillectomy and adenoidectomy Family History Other Diabetes Hypertension Social History Smoking Status: Current every day smoker tobacco type: cigarettes packs per day: 1 second hand exposure: No alcohol intake: never substance use type: former substance user current occupational status: unemployed Travel in the last 8 weeks?: None number of children: 1 current occupational exposures/hazards: No caffeine: No Have you lived/traveled outside US in past 30 days?: No Contact w/someone who lives/traveled outside US past 30 days?: No Exposure to someone with infectious disease in past 14 days?: No Do you have a fever (greater than 100.4 F or 38 C)?: No Have you tested positive for COVID-19?: No Exposed to someone with COVID-19 in past 14 days?: No Do you have a sore throat?: No Do you have a cough?: No Do you have any weakness?: No Do you have any diarrhea?: No Are you experiencing any unusual bleeding?: No Do you have any muscle aches/pain?: No Do you have any abdominal pain?: No Are you experiencing loss of taste or smell?: No Other Medical History Have you received the Flu Vaccine for this season: No Have you received the Pneumonia Vaccine: No ROS Obtained: Yes All systems reviewed & no additional complaints except as documented Physical Exam General General appearance: alert and in no apparent distress Head Head exam: atraumatic and normocephalic Eye Eye exam: Present normal appearance, PERRL and EOMI Neck Neck exam: Present normal inspection, full ROM and trachea midline Respiratory Respiratory exam: Absent respiratory distress, wheezes, stridor, accessory muscle use or prolonged expiratory phase Cardiovascular Cardiovascular exam: Present other (Pulses equal symmetric in upper and lower extremities) Abdominal Exam Abdominal exam: Present soft; Absent distention, tenderness or pulsatile mass Extremities Exam Extremities exam: Absent edema Neurological Exam Neurological exam: Present alert, oriented X3 and CN II-XII intact; Absent motor sensory deficit Skin Skin exam: Present warm and dry; Absent diaphoresis or erythema Medical Decision Making Medical Records Medical records reviewed: Yes I reviewed the patient's medical records. Screening: Per USPSTF and CDC recommendations, given the prevalence of disease in our region, it is our hospital?s policy to screen for HIV and viral Hepatitis for all patients aged 18 and over and those with ongoing risk factors. Pierce Inquiry Pt receiving controlled substance: No Pierce was queried for this patient: No Vital Signs: 07/23/24 12:32 07/23/24 12:34 07/23/24 13:00 Temperature 98.7 F Temperature Source Oral Pulse Rate 67 58 L Pulse Rate [Right Brachial] 73 Respiratory Rate 20 Blood Pressure 123/88 125/76 Blood Pressure [Right Arm] 123/88 Blood Pressure Mean [Right Arm] 99 Blood Pressure Source [Right Arm] Automatic Cuff Blood Pressure Position [Right Arm] Supine 02 Sat by Pulse Oximetry 99 99 99 Oxygen Delivery Method Room Air Room Air Room Air 07/23/24 13:30 07/23/24 14:00 Temperature Temperature Source Pulse Rate 56 L 63 Pulse Rate [Right Brachial] Respiratory Rate Blood Pressure 118/76 114/59 L Blood Pressure [Right Arm] Blood Pressure Mean [Right Arm] Blood Pressure Source [Right Arm] Blood Pressure Position [Right Arm] 02 Sat by Pulse Oximetry 98 98 Oxygen Delivery Method Room Air Room Air Lab Data Lab Results 07/23/24 13:17: WBC 5.8, RBC 4.73, Hgb 13.1, Hct 40.9, MCV 86.5, MCH 27.7, MCHC 32.0, RDW 12.0, Plt Count 309, MPV 10.3, Neut % (Auto) 54.7, Lymph % (Auto) 31.8, [place] % (Auto) 7.4, Eos % (Auto) 3.6, Baso % (Auto) 2.2 H, Neut # (Auto) 3.2, Lymph # (Auto) 1.8, [place] # (Auto) 0.4, Eos # (Auto) 0.2, Baso # (Auto) 0.1, Sodium 138, Potassium 4.6, Chloride 106, Carbon Dioxide 27, Anion Gap 9.6, BUN 14, Creatinine 0.70, Estimated Creat Clear 123, Estimated GFR 102, Est GFR ( Amer) 123, Glucose 85, Calcium 9.4, Total Bilirubin 0.7, AST 33, ALT 26, Alkaline Phosphatase 94, Total Protein 7.2, Albumin 4.3, Globulin 2.9, Albumin/Globulin Ratio 1.5 07/23/24 13:17 07/23/24 13:17 Orders (Tests/Meds): ED MEDICATIONS Discontinued Medications Generic Name Dose Route Start Last Admin Trade Name Freq PRN Reason Stop Dose Admin Acetaminophen 1,000 mg 07/23/24 13:05 07/23/24 13:15 Acetaminophen 500mg Tab PO 07/23/24 13:06 1,000 mg ONCE ONE Administration Dexamethasone Sodium Phosphate 10 mg 07/23/24 13:05 07/23/24 13:16 Dexamethasone 4mg/Ml 1ml Vial IV 07/23/24 13:06 10 mg ONCE ONE Administration Lactated Ringer's 1,000 mls @ 999 mls/hr 07/23/24 13:05 07/23/24 13:16 Lactated Ringer's 1000 Ml Bag IV 07/23/24 14:05 999 mls/hr .Q1H1M ONE Administration Ketorolac Tromethamine 15 mg 07/23/24 13:05 07/23/24 13:16 Ketorolac 30mg/Ml Vial IV 07/23/24 13:06 15 mg ONCE ONE Administration Metoclopramide HCl 10 mg 07/23/24 13:05 07/23/24 13:16 Metoclopramide Hcl 10mg/2ml Vial IVP 07/23/24 13:06 10 mg ONCE ONE Administration ORDERS Category Date Time Status CBC w/Auto Diff [Complete Blood Count Auto Diff] Stat Lab 07/23/24 13:17 Completed CMP [Comprehensive Metabolic Panel] Stat Lab 07/23/24 13:17 Completed Medical Decision Narrative: 23-year-old female presenting with headache. She is from spontaneous vaginal delivery on 07/06. States that she has had a headache for about 2 weeks. Intermittent spots in her vision, but not currently. Headache is bandlike, does not radiate, no fevers, chills, syncopal episodes, facial swelling, neurologic deficits, nausea, vomiting, photophobia or phonophobia. States its mild to severe in intensity, not made better or worse by anything in particular. History was obtained via conversation with patient. On arrival, patient hemodynamically stable, alert, oriented x4, appropriate, GCS 15, moving all extremities spontaneously, pupils equal and reactive to light. Full physical exam performed and significant for very clinically well-appearing female no acute distress. Speaking in full sentences, sitting in well lit room. Neurologically intact and ambulatory. Differential includes headache, migraine, post LP/epidural headache, metabolic abnormality, endocrinologic abnormality, among others. Less likely to be cerebral DVT given no confusion, neurologic deficits, facial swelling, etc or intracranial hemorrhage for some reason. Patient placed on continuous cardiac monitoring and continuous pulse ox with initial blood pressure 123/88, heart rate XT 7, saturation 98% on room air. Patient was given migraine cocktail for symptomatic management and correction of underlying abnormalities. Workup independently interpreted and significant for nonactionable CBC or chemistry, normal LFTs and kidney function. CT head considered, but deemed unnecessary. Patient has negative workup, neurologically intact, near complete resolution on reevaluation. Given patient presentation, workup, history, this most likely represents migraine versus tension headache. Because patient at baseline without signs or symptoms of clinical decompensation, deemed appropriate for discharge. Results were relayed to patient who voiced understanding and were agreeable to outpatient management and follow up. I discussed my clinical impression with patient and answered all questions. At this time, the evidence for any other entities in the differential is insufficient to warrant any further testing or ED observation. This was explained as well. Advisory was given that persistent or worsening symptoms require further evaluation. I confirmed the understanding of this discussion. Grain Elevator Operator disclaimer Much of this encounter note is an electronic switch adjuster spoken language to printed text. Electronic switch adjuster of the spoken language may permit errors. Although I have reviewed the note, some errors may still exist. Critical Care Critical Care Time Critical Care Time: No
[2024-07-23 14:00] VITALS: BP 114/59; PULSE 63; O2SAT 98
[2024-07-23 14:27] VITALS: BP 114/68; PULSE 80; RESP 20; TEMP 36.9; O2SAT 99
== END 2024-07-23 14:29 | disposition home or self-care (01) ==
PROVIDERS: Emergency Provider Emergency Medicine; PCP Nurse Practitioner Family
DX: G40.909 Epilepsy, unspecified, not intractable, without status epilepticus (principal)
CPT/HCPCS: 80053; 85025; 96361; 96374; 96375; 99284; J1100; J1885; J2765; J7120

== ENCOUNTER 2024-10-11 16:15 | Outpatient (CLI) | payer OTHER, SELFPAY ==
--- OUTSIDE RECORDS SUMMARY | 2024-08-20 14:30 | XMS_ITS | Encounter Summary ---
Author Organization [facility] Address [address] [place] [address] Care Team Providers Care Interior Wirer Name Role Phone Azucena Huerta APRN Primary Care Provider [phone] Reason for Visit * Reason Comments Follow-up Encounter Details Date Type Department Care Team ([facility] st Contact Info) Description 08/20/2024 2:30 PM EDT Office Visit Medical Office Building [facility] [address], [address] [place] [address] Manoj Maza PA [address] [place] [address] History of lumbar spinal fusion (Primary Dx); Acute bilateral low back pain with bilateral sciatica Social History Tobacco Use Types Packs/Day Years Used Date Smoking Tobacco: Former Cigarettes Smokeless Tobacco: Never Tobacco Cessation:Counseling Given: Not Answered Comments:Vape Alcohol Use Standard Drinks/Week Comments Never 0 (1 standard drink = 0.6 oz pur e alcohol) Humiliation, Afraid, Rape, and Kick questionnair e Answer Date Recorded Within the last year, have y ou been afraid of your partner or ex-partner? No 04/02/2023 Within the last year, have y ou been humiliated or emotionally abused in other ways by your partner or ex-partner? No Within the last year, have y ou been kicked, hit, slapped, or otherwise physically hurt by your partner or ex-partner? No 04/02/2023 Within the last year, have y ou been raped or forced to have any kind of sexual activity by your partner or ex-partner? No 04/02/2023 PHQ-2 Answer Date Recorded Patient Health Questionnaire-2 Score 0 04/20/2024 Hunger Vital Sign Answer Date Recorded Within the past 12 months, y ou worried that your food would run out before you got the money to buy more. Never true 04/02/19 Within the past 12 months, t he food you bought just didn't last and you didn't have money to get more. Never true 04/02/2023 PRAPARE - Transportation Answer Date Re corded In the past 12 months, has l ack of transportation kept you from medical appointments or from getting medications? No 03/11 In the past 12 months, has l ack of transportation kept you from meetings, work, or from getting things needed for daily living? No 04/02/2023 Housing Stability Vital Sign Answer Kar e Recorded In the last 12 months, was t here a time when you were not able to pay the mortgage or rent on time? No 04/02/2023 Number of Places Lived in the Last Year Not on f ile 04/02/2023 In the last 12 months, was t here a time when you did not have a steady place to sleep or slept in a group home (including now)? No 04/02/2023 PHQ-9 Answer Date Recorded Patient Health Questionnaire-9 Score 0 04/20/2024 Utilities Answer Date Recorded In the past 12 months has th e electric, gas, oil, or water company threatened to shut off services in your home? No 04/02/2023 Comments Yes Sex and Gender Information Value Date Recorded Sex Assigned at Female 10/13/2023 9:32 AM EDT Legal Sex Female 5:57 PM EDT Gender Identity Female 10/13/2023 9:32 AM EDT Sexual Orientation Not on file documented as of this encounter Last Filed Vital Signs Vital Sign Reading Time Taken Comments Blood Pressure 118/75 08/20/2024 2:43 PM EDT Pulse 101 08/20/2024 2:43 PM EDT Temperature - - Respiratory Rate - - Oxygen Saturation 100% 08/20/2024 2:43 PM EDT Inhaled Oxygen Concentration - - Weight 66 kg (145 lb 8.1 oz) 08/20/2024 2:43 PM EDT Height 157.5 cm (5' 2 ) 08/20/2024 2:43 PM EDT Body Mass Index 26.61 08/20/2024 2:43 PM EDT documented in this encounter Miscellaneous Notes * Progress Notes - Manoj Maza PA - 08/20/2024 2:30 PM EDT Images from the original note were not included. [facility] Note CHIEF COMPLAINT: low back pain following epidural Subjective: History of Present Illness: Levi Lassiter is a 23 y.o. female with a history of L3-4 posterior fusion (04/01/2023), who recently received an epidural during childbirth in late June. She states that they had to make 3 attempts each resulting in significantly worsening low back pain. Since then she has had low back painwith radiation superiorly to inferior scapula on the left side and to posterior legs. She also endorses a relatively continuous headache that varies in intensity. She states that she spoke with her OB physician who believes she needs to do physical therapy prior to obtaining images for further investigation. She continues to take a compound cream that contains gabapentin/lidocaine with minor benefit. She also takes muscle relaxants with variable benefit. She denies any saddle anesthesia, bowel/bladder dysfunction. Prior Surgeries: Surgical History[1] PAST MEDICAL HISTORY Past Medical History[2] MEDICATIONS Current Medications[3] ALLERGIES Allergies[4] PAST SURGICAL HISTORY Surgical History[5] FAMILY HISTORY Family History[6] SOCIAL HISTORY Current work status: Tobacco use: No Alchohol use: N/A Drug use: N/A REVIEW OF SYSTEMS: Please see above. A complete 14 point review of systems was performed and is otherwise negative. Objective: Visit Vitals BP 118/75 Pulse 101 Ht 1.575 m (5' 2 ) Wt 66 kg (145 lb 8.1 oz) LMP (LMP Unknown) Comment: not preg shielded SpO2 100% BMI 26.61 kg/m?? OB Status Smoking Status Former BSA 1.7 m?? PHYSICAL EXAMINATION: GENERAL: The patient is a pleasant female in no acute distress. General Physical Exam Constitutional Appears well-developed and well-nourished. Eyes Pupils are equal, round, and reactive to light. Neck No tracheal deviation or JVD noted. No previous surgical scars Cardiovascular Minimal to no peripheral edema, intact distal pulses Pulmonary/Chest Effort normal, no shortness of breath Neurological Alert and oriented to person, place, and time Skin Skin is warm and dry Psychiatric Normal mood and affect, behavior and judgment FOCUSED MUSCULOSKELETAL/NEUROLOGIC EXAM: Prior Surgical Incisions: None Motor Strength Right Left L2: Hip flexion (Iliopsoas) 07/12 07/12 L3: Knee extension (Quad) 07/12 07/12 L4: Ankle DF (TA) 07/12 07/12 L5: Great Toe DF (EHL) 07/12 07/12 S1: Ankle Pf, Foot Eversion (Peroneal longus/brevis) 07/12 07/12 Sensation Right Left L2: Proximal anterior thigh normal normal L3: Mid anterior thigh normal normal L4: Medial leg/foot, great toe (Saphenous n.) normal normal L5: Dorsum of mid foot normal normal S1: Lateral leg/foot, little toe, Back of leg (Sural n.) normal normal Reflexes Right Left L4: Patellar 2/4 2/4 S1: Achilles 2/4 2/4 Babinski Absent Absent Clonus <3 beats <3 beats Straight leg raise is Negative Tandem gait is Normal Gait is normal IMAGING: Plain Radiographs: 2 views of the lumbar spine were obtained in clinic and independently reviewed today showing: Stable appearing hardware L3-4 without evidence of loosening or failure. No acute interval change compared to images obtained at last visit. Assessment and Plan: Levi Lassiter is a 23 y.o. female who, after review of history, physical exam findings and imaging, is diagnosed with acute low back pain. Patient has significantly worsened low back pain since childbirth in which she had an epidural that was placed 3 separate times. Each time this was placed she had significantly worsened low back pain. This was removed and she has had continuous low backpain as well as persistent headaches. She has trialed a compound cream as well as muscle relaxants without lasting benefit. She has plans to begin physical therapy next week. She has spoken with her OB who recommends imaging to evaluate for acute changes in spine. Insurance states that she needs todo roughly 3 weeks of physical therapy prior to approval. I am suspicious for a CSF leak following multiple attempts to place epidural during labor. She has a persistent headache that has not improved with medication and pain from procedure side with radiation superior to midback and inferiorly to p osterior legs. I will speak with Dr. Smith regarding further imaging. I will reach out next week with plan. Patient reflected understanding and given opportunity to ask questions which were answered to her satisfaction. Manoj Maza PA-C [1] Past Surgical History: Procedure Laterality Date ARM SURGERY Left 03/31/2023 SPINE SURGERY TONSILLECTOMY [2] Past Medical History: Diagnosis Date Anxiety Bipolar 1 disorder (CMS/[facility]) Depression PTSD (post-traumatic stress disorder) [3] Current Outpatient Medications: cetirizine (ZyrTEC) 10 MG tablet, , Disp: , Rfl: ferrous sulfate 325 (65 Fe) MG EC tablet, Take 1 tablet by mouth daily., Disp: , Rfl: ondansetron ODT (Zofran-ODT) 4 MG disintegrating tablet, Take 1 tablet (4 mg) by mouth every 6 (six) hours if needed for nausea or vomiting., Disp: 20 tablet, Rfl: 0 Ventolin HFA 108 (90 Base) MCG/ACT inhaler, , Disp: , Rfl: [4] No Known Allergies [5] Past Surgical History: Procedure Laterality Date ARM SURGERY Left 03/31/2023 SPINE SURGERY TONSILLECTOMY [6] No family history on file. 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
--- OUTSIDE RECORDS SUMMARY | 2024-08-20 14:34 | XMS_ITS | Encounter Summary ---
Author Organization Healthcare Address [address] [place] [address] Care Team Providers Care Tour Conductor Name Role Phone Azucena Huerta APRN Primary Care Provider [phone]- [phone] Encounter Details Date Type Department Care Team (Latest Contact Info) Description 08/20/2024 2:34 PM EDT - 08/20/2024 11:59 PM EDT Hospital Encounter Medical Office Building Radiology [address] [place] [address] Lumbar pain Discharge Disposition: Home or Self Care Social History Tobacco Use Types Packs/Day Years Used Date Smoking Tobacco: Former Cigarettes Smokeless Tobacco: Never Comments:Vape Alcohol Use Standard Drinks/Week Comments Never [...] money to buy more. Never true 04/02/19 24 Within the past 12 months, t he [...] place to sleep or slept in a care home (including now)? No 04/02/2023 PHQ-9 Answer [...] on file documented as of this encounter Medications at Time of Discharge cetirizine (ZyrTEC) 10 MG tablet 05/19/2024 ferrous sulfate 325 (65 Fe) MG EC tablet Take 1 tablet by mouth daily. 07/08/2024 Ventolin HFA 108 (90 Base) MCG/ACT inhaler 08/05/2024 ondansetron ODT (Zofran-ODT) 4 MG disintegrating tablet Take 1 tablet (4 mg) by mouth every 6 (six) hours if needed for nausea or vomiting. 20 tablet 04/04/2023 documented as of this encounter Plan of Treatment Not on file documented as of this encounter Procedures Procedure Name Priority Date/Time Associated Diagnosis Comments XR LUMBAR SPINE 2 OR 3 VIEWS Routine 08/20/2024 2:38 PM EDT Lumbar pain documented in this encounter Results * STRING LASTER: L-Spine: XR Lumbar Spine 2 or 3 Views (AP/Lateral) (08/20/2024 2:38 PM EDT) Anatomical Region Laterality Modality Spine, L-spine Digital Radiogra phy Impressions 08/20/2024 4:25 PM EDT 1. Posterior fusion at L3-L4 without hardware complication. 2. Unchanged loss of vertebral body height at T12 and L3 associated with vertebral body fracture. Healed fractures of the left L2 transverse process process and left 12th rib. 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 COMMUNICATION: Per this written report. Drafted by Rubio Epperson MD on 08/20/2024 4:20 PM Final report signed by Rubio Epperson MD on 08/20/2024 4:25 PM Narrative 08/20/2024 4:25 PM EDT CLINICAL INDICATION: BACK PAIN TECHNIQUE: XR LUMBAR SPINE 2 OR 3 VIEWS COMPARISON: July 18, 2023. FINDINGS: 2 views of the lumbar spine show posterior fusion at L3-L4. Unchanged loss of height related to fracture of the L3 vertebral body and right lateral aspect of T12. Fracture of the bilateral L2 transverse process and right L3 transverse process. Fracture of the left 12th rib. Sacroiliac joints are normal. Procedure Note Rubio Epperson MD - 08/20/2024 CLINICAL INDICATION: BACK PAIN TECHNIQUE: XR LUMBAR SPINE 2 OR 3 VIEWS COMPARISON: July 18, 2023. FINDINGS: 2 views of the lumbar spine show posterior fusion at L3-L4. Unchanged lossof height related to fracture of the L3 vertebral body and right lateralaspect of T12. Fracture of the bilateral L2 transverse process and rightL3 transverse process. Fracture of the left 12th rib. Sacroiliac jointsare normal. IMPRESSION: 1.Posterior fusion at L3-L4 without hardware complication. 2.Unchanged loss of vertebral body height at T12 and L3 associated withvertebral body fracture. Healed fractures of the left L2 transverse process process and left 12thrib. 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 COMMUNICATION: Per this written report. Drafted by Rubio Epperson MD on 08/20/2024 4:20 PM Final report signed by Rubio Epperson MD on 08/20/2024 4:25 PM us Manoj BAEZ IMG XR PROCEDURES Final Resul t documented in this encounter Visit Diagnoses Diagnosis Lumbar pain Lumbago documented in this encounter Additional Health Concerns [...] documented as of this encounter Care Teams Tour Conductor Relationship Specialty Start Date End Date Azucena Huerta APRN [address] [place] [address] PCP - General 04/14/23 documented as of this encounter
--- OUTSIDE RECORDS SUMMARY | 2024-08-24 14:50 | XMS_ITS | Encounter Summary ---
Author Organization [facility] Address [address] [place] [address] Care Team Providers Care Dipper And Drier Name Role Phone Azucena Huerta APRN Primary Care Provider [phone]- [phone] Reason for Visit * Reason Comments Follow-up Encounter Details Date Type Department Care Team (Late st Contact Info) Description 08/24/2024 2:50 PM EDT Office Visit [facility] [address] [place] [address] Orlin Claros MD [address] [place] [address] Pain from implanted hardware, subsequent encounter (Primary Dx) Social History Tobacco Use Types Packs/Day Years [...] place to sleep or slept in a senior care (including now)? No 04/02/2023 PHQ-9 Answer Date Recorded Patient Health Questionnaire-9 Score 0 04/20/2024 Utilities Answer Date Recorded In the past 12 months has th e [employer], gas, oil, or water company threatened to [...] Sign Reading Time Taken Comments Blood Pressure 123/76 08/24/2024 3:06 PM EDT Pulse 70 08/24/2024 3:06 PM EDT Temperature 36.7 C (98 F) 08/24/2024 3:06 PM EDT Respiratory Rate - - Oxygen Saturation 98% 08/24/2024 3:06 PM EDT Inhaled Oxygen Concentration - - Weight 68 kg (150 lb) 08/24/2024 3:06 PM EDT Height 157.5 cm (5' 2 ) 08/24/2024 3:06 PM EDT Body Mass Index 27.44 08/24/2024 3:06 PM EDT documented in this encounter Miscellaneous Notes * Progress Notes - China Hernandez PA - 08/24/2024 2:50 PM EDT Chief Complaint: ORIF left bothbone forearm fracture, non-op right scapula 03/31/2023 HPI: Levi Lassiter is a 23 y.o. female who presents to clinic for postoperative follow up s/p the above stated. Patient was last seen here in 04/2023. States that she was doing well post operatively. States she slipped on ice in 04/2024, sustaining a left elbow dislocation. Patient states that she was closed reduced and followed up with Dr. More. States that she has had increased pain about the ulna starting about one month ago. States her ulna is sensitive to the touch about her incision. Denies any numbness, tingling. Denies any further trauma or injury. Focused MSK Exam: Left upper extremity: Well-healed surgical incisions, no erythema or drainage Elbow ROM: 0-120 Stable to varus and valgus stress about the elbow Motor: Fires ER/IR, Delt, Bic, Tri, WF, WE, FF, FE, Fabd, EPL, FPL Sensory: Sensation intact to light touch axillary, radial, median, ulnar nn Vascular: 2+ radial pulse, cap refill < 2 sec XRAY: We ordered, reviewed, and interpreted the following images XR left forearm shows ORIF hardware intact, radiographically healed fracture Assessment/Plan: 23 y.o. female who presents s/p ORIF left bothbone forearm fracture, non-op right scapula 03/31/2023. Continue WBAT, AAT, ROMAT LUE. Discussed with patient symptoms are likely due to prominent ulna hardware. We discussed the nature of the injuries/injuries and treatment options including operative versus nonoperative management. Furthermore we discussed the risks, benefits, expected outcomes, and potential complications of each of these. as well as the associated prognosis. She understood the risks of treatment to include but not be limited to infection, bleeding, wound complications, neurovascular injury, RSD/CRPS, loss of fixation, malunion, nonunion, as well as the need for potential revision surgery. Furthermore we discussed the potential for postoperative pain, stiffness, disability, instability, loss of limb, loss of life, as well as other anesthetic or thromboembolic and tourniquet related complications. Decision was made to proceed to surgery. All her questionswere answered and informed consent was obtained. Plan for ulna hardware removal with Dr. Claros on 09/06. The patient was given an opportunity to ask questions and all their questions were answered to their satisfaction. Sanjuana Hernandez PA-C Department of Orthopaedic Surgery and Sports Medicine Cosigned by Orlin Claros MD at 09/01/2024 7:23 PM EDT Associated attestation - Orlin Claros MD - 09/01/2024 7:23 PM EDT I attest to being involved in more than half the total time in patient care. documented in this encounter Plan of Treatment Not on file documented as of this encounter Goals Goal Patient Goal Type Associated Problems Recent Progress Patient-Stated? 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
--- OUTSIDE RECORDS SUMMARY | 2024-08-24 15:09 | XMS_ITS | Encounter Summary ---
Author Organization [facility] Address [address] [place] [address] Care Team Providers Care Transportation Planning Technician Name Role Phone Azucena Huerta APRN Primary Care Provider +1- [phone] Encounter Details Date Type Department Care Team (Latest Contact Info) Description 08/24/2024 3:09 PM EDT - 08/24/2024 11:59 PM EDT [facility] Encounter [facility] [address] [place] [address] Closed fracture of proximal end of left radius and ulna, initial encounter Discharge Disposition: Home or Self Care Social [...] place to sleep or slept in a half-way (including now)? No 04/02/2023 PHQ-9 Answer Date Recorded Patient Health Questionnaire-9 Score 0 04/20/2024 Utilities Answer Date Recorded In the past 12 months has th e [employer], gas, oil, or water company threatened to [...] Take 1 tablet by mouth daily. 07/08/2024 oxyCODONE (Roxicodone) 5 MG immediate release tablet Take 1 tablet by mouth every 6 hours as needed for moderate pain. 30 tablet 09/13/2024 senna-docusate sodium (Senokot-S) 8.6-50 MG tablet Take 1 tablet by mouth 2 times a day. 28 tablet 09/13/2024 senna-docusate sodium (Senokot-S) 8.6-50 MG tablet Take 1 tablet by mouth 2 times a day. 28 tablet 09/13/2024 Ventolin HFA 108 (90 Base) MCG/ACT inhaler [...] Claros MD documented as of this encounter Procedures Procedure Name Priority Date/Time Associated Diagnosis Comments XR FOREARM LEFT 2 VIEWS Routine 08/24/2024 3:14 PM EDT Closed fracture of proximal end of left radius and ulna, initial encounter documented in this encounter Results * XR Forearm Left 2 Views (08/24/2024 3:14 PM EDT) Anatomical Region Laterality Modality Upper Extremities, Forearm Left Digit al Radiography Impressions 08/24/2024 3:24 PM EDT Healed and remodeling fractures of the mid diaphysis of the radius and ulna without hardware complication CRITICAL RESULT: No. COMMUNICATION: Per this written report. Drafted by Rubio Epperson MD on 08/24/2024 3:22 PM Final report signed by Rubio Epperson MD on 08/24/2024 3:24 PM Narrative 08/24/2024 3:24 PM EDT CLINICAL INDICATION: fu TECHNIQUE: XR FOREARM LEFT 2 VIEWS COMPARISON: April 20, 2024. FINDINGS: 2 views of the left forearm show plate and screw fixation of healed and remodeling fractures of the mid diaphysis of the radius and ulna. No hardware complication. Wrist and elbow joint space and alignment are normal. Ossific opacities are appreciated in the radial aspect of the elbow joint suggesting capsular injury. Procedure Note Rubio Epperson MD - 08/24/2024 CLINICAL INDICATION: fu TECHNIQUE: XR FOREARM LEFT 2 VIEWS COMPARISON: April 20, 2024. FINDINGS: 2 views of the left forearm show plate and screw fixation of healed andremodeling fractures of the mid diaphysis of the radius and ulna. Nohardware complication. Wrist and elbow joint space and alignment arenormal. Ossific opacities are appreciated in the radial aspect of theelbow joint suggesting capsular injury. IMPRESSION: Healed and remodeling fractures of the mid diaphysis of the radius andulna without hardware complication CRITICAL RESULT: No. COMMUNICATION: Per this written report. Drafted by Rubio Epperson MD on 08/24/2024 3:22 PM Final report signed by Rubio Epperson MD on 08/24/2024 3:24 PM Sofie BAEZ IMG XR PROCEDURES Final Resu lt documented in this encounter Visit Diagnoses Diagnosis Closed fracture of proximal end of left radius and ulna, initial encounter documented in this encounter Additional Health Concerns [...] documented as of this encounter Care Teams Transportation Planning Technician Relationship Specialty Start Date End Date Azucena Huerta APRN [address] [place] [address] PCP - General 04/14/23 documented as of this encounter
--- OUTSIDE RECORDS SUMMARY | 2024-09-13 05:50 | XMS_ITS | Encounter Summary ---
Author Organization [facility] Address [address] [place] [address] Care Team Providers Care Civil Project Engineer Name Role Phone Azucena Huerta APRN Primary Care Provider [phone] Reason for Visit * Auth/Cert (Routine) Specialty Diagnoses / Procedures Referred By Contac t Referred To Contact Diagnoses Pain from implanted hardware, subsequent encounter Pain from implanted hardware, subsequent encounter [T85.848D] Procedures SC REMOVAL DEEP IMPLANT REMOVAL, HARDWARE Orlin Claros MD [id number] [place] [address] Phone: tel: fax: [facility] [address] [place] [address] Phone: tel: Referral ID Status Reason Start Date Expiration Date Visits Re quested Visits Authorized [id number] 1 1 Encounter Details Date Type Department Care Team (Latest Contact Info) Description 09/13/2024 5:50 AM EDT - 09/13/2024 10:10 AM EDT Hospital Encounter [facility] [address] [place] [address] Orlin Claros MD [id number] [place] [address] Discharge Disposition: Home or Self Care Social [...] place to sleep or slept in a usp (including now)? No 04/02/2023 PHQ-9 Answer Date Recorded Patient Health Questionnaire-9 Score 0 04/20/2024 Utilities Answer Date Recorded In the past 12 months has th [employer] electric, gas, oil, or water company threatened [...] Sign Reading Time Taken Comments Blood Pressure 117/80 09/13/2024 9:00 AM EDT Pulse 80 09/13/2024 9:00 AM EDT Temperature 36.4 C (97.5 F) 09/13/2024 9:00 AM EDT Respiratory Rate 23 09/13/2024 9:00 AM EDT Oxygen Saturation 98% 09/13/2024 9:00 AM EDT Inhaled Oxygen Concentration - - Weight 65 kg (143 lb 4.8 oz) 09/13/2024 6:46 AM EDT Height - - Body Mass Index 26.21 08/24/2024 3:06 PM EDT documented in this encounter Discharge Instructions * Discharge Instructions* Sanchez Lowery MD - 09/13/2024 8:38 AM EDT Discharge to home today Wbat Follow up 2 weeks documented in this encounter Medications at Time of Discharge cetirizine (ZyrTEC) 10 MG tablet 05/19/2024 ferrous sulfate 325 (65 Fe) MG EC tablet Take 1 tablet by mouth daily. 07/08/2024 methocarbamol (Robaxin) 500 MG tablet Take 1 tablet by mouth 4 times a day. 90 tablet 1 08/27/2024 oxyCODONE (Roxicodone) 5 MG immediate release tablet [...] HFA 108 (90 Base) MCG/ACT inhaler 08/05/2024 documented as of this encounter Miscellaneous Notes * Nursing Note - Olga Lidia Staton RN - 09/13/2024 10:01 AM EDT Pt had vancomycin going though IV, pt had some mild itching, the vancomycin was stopped, line disconnected and IV flushed. Pt said she no longer had itching. * Anesthesia PACU Signout - Sarah Beth Perez DO - 09/13/2024 9:11 AM EDT Patient: Levi Lassiter Anesthesia Type: general Vitals Value Taken Time BP 117/80 09/13/24 09:00 Temp 36.4 ??C (97.5 ??F) 09/13/24 09:00 Pulse 74 09/13/24 09:10 Resp 16 09/13/24 09:10 SpO2 98 % 09/13/24 09:10 Vitals shown include unfiled device data. Anesthesia PACU Signout Patient location during evaluation: PACU Patient participation: complete - patient participated Level of consciousness: baseline and awake Pain management: adequate (pain score 0-3) Airway patency: natural airway Hydration status: stable PONV: none Cardiovascular status: hemodynamically stable and blood pressure returned to baseline Respiratory status: spontaneous ventilation, unassisted, nonlabored ventilation and room air Discharge Disposition: home Cosigned by Elias Solis MD at 09/13/2024 4:52 PM EDT Associated attestation - Elias Solis MD - 09/13/2024 4:52 PM EDT Signature only. * Op Note - Sanchez Lowery MD - 09/13/2024 7:56 AM EDT Operative Note Date: 09/13/24 Location: [facility] Name: Levi Lassiter, : 2000, Diagnoses: Pre-op Diagnosis 1) left ulna painful hardware Post-op Diagnosis 1) left ulna painful hardware Procedure(s): Left ulna removal of hardware Attending Surgeon(s): * Orlin Claros - Primary Analytics Associate(s): * Sanchez Lowery MD - Fellow Anesthesia: Choice ASA: II Blood Administration: Blood Product Administration History None Estimated Blood Loss: Minimal Drains: * None in log * Indications: Levi Lassiter is an 23 y.o. female who is having surgery for Pain from implanted hardware, subsequent encounter. . The patient has a painful left ulna plate following previous open reduction internal fixation. Discussed operative and nonoperatively treatment options. Due to persistent pain from the plate patient wished to proceed with removal in order to preserve function and minimize pain. We discussed the risks and benefits associated the procedure including pain, bleeding,infection damage to surrounding tissues such as blood vessels and nerves, nonunion, malunion, stiffness, malrotation, need for furthersurgeries and risks of anaesthesia including heart attack, stroke and . After discussing this with the patient/family, they wished to proceed in this manor. Narrative: The patient was taken to the operating room and placed in the supine position on the operating roomtable. The patient was placed under general anesthesia by the anesthesiologist. IV antibiotics weregiven within 1 hour of surgery is prophylaxis against infection. Sequential DENYS stockings were placed on the lower extremities. The left upper extremity was then prepared and draped in the normal sterile fashion. A timeout was called and site and side were verified. I now placed a sterile tourniquet over the left arm. Right arm was exsanguinated using a sterile Esmarch bandage and the tourniquet inflated to 250 mmHg. The ulna was exposed by the ECU FCU interval. Soft tissue was bluntly elevated off the plate. 6 screws were easily removed from the plate. The plate was then removed with gentle strikes of an osteotome and a freer. A independent screw was identified and also removed. There was another screw in the ulna that was not easily found and deemed to not be the cause of the patient's symptoms and was leftin place. We then smoothed the both edges with a rongeur and curette. The wound was copiously irrigated, was closed in layers, a sterile dressing was placed. Patient wasplaced in a soft sterile dressing. The patient was placed on a stretcher and woke from anesthesia. She will be allowed to be WBAT and nylons out at 2 weeks. .I Sanchez Lowery act as scribe for Orlin Claros. Please note no qualified resident was available for assistance with the case, and the fellow was necessary to aid with the patient positioning, prepping and draping, soft tissue retraction, placement of hardware, wound closure and bandage application to expedite the procedure. There were NO signs of surgical site infection (SSI) present at the time of surgery (PATOS). Complications: None; patient tolerated the procedure well. Submitted by: Sanchez Lowery MD - 09/13/2024 Cosigned by Orlin Claros MD at 09/17/2024 11:07 AM EDT * H&P - Sanchez Lowery MD - 09/13/2024 6:15 AM EDT Images from the original note were not included. Subjective Chief complaint Left forearm prominent hardware History Of Present Illness Levi Lassiter is a 23 y.o. female presenting with left forearm pain with prominent hardware. Medical/Surgical/Social/Family History I have reviewed and updated the patient history. Travel History Relevant International Travel History: Travel Screening Question Response Have you been in contact with someone who was sick? -- Do you have any of the following new or worsening symptoms? -- Have you traveled internationally or domestically in the last month? No Travel History Travel since 08/14/24 No documented travel since 08/14/24 Allergies Patient has no known allergies. Medications Current Medications[1] Objective Focused MSK Exam: Left upper extremity: Well-healed surgical incisions, no erythema or drainage Elbow ROM: 0-120 Stable to varus and valgus stress about the elbow Motor: Fires ER/IR, Delt, Bic, Tri, WF, WE, FF, FE, Fabd, EPL, FPL Sensory: Sensation intact to light touch axillary, radial, median, ulnar nn Vascular: 2+ radial pulse, cap refill < 2 sec Last Recorded Vitals There were no vitals taken for this visit. Results Review {Vanishing Link Review Results :[id number] I have reviewed the latest lab and imaging results. Assessment & Plan Pain from implanted hardware 23F with left prominent hardware To OR today for left forearm removal of hardware Medically Ready for Discharge:Anticipated Today [1] Current Facility-Administered Medications Medication Dose Route Frequency Provider Last Rate Last Admin acetaminophen (Tylenol) tablet 1,000 mg 1,000 mg Oral Once Orlin Claros MD Povidone-Iodine 5 % swab solution 1 Application 1 Application Nasal Once Orlin Claros MD scopolamine (Transderm-Scop) patch 1 patch 1 patch Transdermal Once Prince Estrella MD sodium chloride 0.9 % flush 10 mL 10 mL Intravenous q12h Orlin Claros MD And sodium chloride 0.9 % flush 10 mL 10 mL Intravenous PRN Orlin Claros MD Vancomycin HCl in NaCl (Vancocin) IVPB 1,000 mg 15 mg/kg Intravenous Once Orlin Claros MD * PAT Phone Note - Pan Sarabia - 08/27/2024 1:40 PM EDT HPI Levi Lassiter is a 23 y.o. female who presents with Pre-op Diagnosis * Pain from implanted hardware, subsequent encounter [T85.309D] now scheduled for REMOVAL, HARDWARE(Left). Past Medical History[1] Family History[2] Social History[3] SURGICAL HISTORY: Surgical History[4] Allergies[5] MEDICATIONS: Current Medications[6] Pan Sarabia [1] Past Medical History: Diagnosis Date Anxiety Bipolar 1 disorder (CMS/HCC) Depression PTSD (post-traumatic stress disorder) [2] Family History Problem Relation Name Age of Onset Diabetes Father's Sister Angeline [3] Social History Tobacco Use Smoking status: Former Current packs/day: 0.00 Types: Cigarettes Smokeless tobacco: Never Tobacco comments: Vape Vaping Use Vaping status: Every Day Substances: Nicotine Substance Use Topics Alcohol use: Never Drug use: Not Currently Frequency: 1.0 times per week Types: Marijuana Comment: After accident [4] Past Surgical History: Procedure Laterality Date ARM SURGERY Left 03/31/2023 SPINE SURGERY N/A 04/01/2023 Laminectomy TONSILLECTOMY [5] No Known Allergies [6] No current facility-administered medications for this encounter. Current Outpatient Medications: Ventolin HFA, cetirizine, ferrous sulfate, Take 1 tablet by mouth daily. (Patient not taking: No sig reported) methocarbamol, Take 1 tablet by mouth 4 times a day. (Patient not taking: Reported on 08/27/2024) ondansetron ODT, Take 1 tablet (4 mg) by mouth every 6 (six) hours if needed for nausea or vomiting. * Preprocedure Instructions - Pan Sarabia - 08/27/2024 1:40 PM EDT Home Medication Instructions Current Medications Medication Instructions Ventolin HFA 108 (90 Base) MCG/ACT inhaler Take as needed General Preoperative Instructions You will be called the business day before surgery with your arrival time Do not eat or drink anything after midnight except water with your medications unless other instructions are given No alcohol or smoking prior to surgery Arrive on time to avoid delays Parking/Registration procedure explained You MUST have a responsible adult available for transport to and from hospital Visitation policy for the day of surgery reviewed Bring insurance card, photo ID, along with power of aerial sprayer, guardianship or advanced directives if applicable Do not bring money, jewelry or other valuables Hibiclens bathing instructions reviewed if applicable Notify surgeon of fever, illness, any changes or if you decide not to have surgery Pediatric patients under 12 years of age (If applicable) No solid food or milk after midnight Formula 6 hours prior to arrival for surgery Breast milk 4 hours prior to arrival surgery Clear liquids 2 hours prior to arrival for surgery Diabetes Instructions (If applicable) Take diabetes medication as instructed You may have up to 4 ounces of apple juice 2 hours prior to arrival for surgery for low glucose documented in this encounter Plan of Treatment Not on file documented as of this encounter Goals Goal Patient Goal Type Associated Problems Recent Progress Patient-Stated? Author Autogenerat ed Goal Care Plan Autogenerated Problem No Orlin Claros MD documented as of this encounter Procedures Procedure Name Priority Date/Time Associated Diagnosis Comments FL LESS THAN 1 HOUR (NON-REPORTABLE) Routine 09/13/2024 8:25 AM EDT SC REMOVAL DEEP IMPLANT 09/13/2024 7:10 AM EDT Pain from implanted hardware, subsequent encounter POCT , URINE Routine 09/13/2024 7:01 AM EDT documented in this encounter Results * FL Less than 1 Hour Intraoperative (09/13/2024 8:25 AM EDT) Narrative IMAGING - 09/13/2024 8:25 AM EDT Images were obtained for surgical purposes. See Orlin Claros's surgical note in the patient's chart for the findings. Orlin Claros MD IMG FLUOROSCOPY PROCEDURES Final Result IMAGING * POCT , URINE (09/13/2024 7:01 AM EDT) POCT Test, Urine Negative Males and Non- Females: Negative 09/13/2024 7:07 AM EDT [facility] Streetcar Operator ID Radha Ritchie 09/13/2024 7:07 AM EDT HEALTHCARE LAB Device ID [id number] 09/13/2024 7:07 AM EDT [facility] Urine Urine specimen obtained by clean catch procedure / Unknown 09/13/2024 7:01 AM EDT 09/13/2024 7:07 AM EDT Orlin Claros MD LAB POINT OF CARE TEST DOCKED DEVICE UNSOLICITED RESULTS Final Result [facility] [address] [place] [address] documented in this encounter Visit Diagnoses Diagnosis Pain from implanted hardware- Primary documented in this encounter Admitting Diagnoses Diagnosis Pain from implanted hardware documented in this encounter Administered Medications Inactive Administered Medications - up to 3 most recent administrations Medication Order MAR Action Action Date Dose Rate Site acetaminophen (Tylenol) tablet 1,000 mg 1,000 mg, Oral, Once, 1 dose, On Fri09/13/24 at 0700, Routine, Holding - Preprocedure Given 09/13/2024 7:04 AM EDT 1,000 mg droperidol (Inapsine) injection 0.625 mg 0.625 mg, Intravenous, Once as needed, 1 dose, Starting on Fri09/13/24 at 0816, Until Fri09/13/24 at 1219, Routine, Recovery (Phase I only), nausea, vomiting fentaNYL (Sublimaze) injection 50 mcg 50 mcg, Intravenous, Every 5 min PRN, 2 doses, Starting on Fri09/13/24 at 0816, Until Fri09/13/24 at 1219, Routine, Recovery (Phase I only), pain score of 3-4 out of 10 HYDROmorphone (Dilaudid) injection 0.5 mg 0.5 mg, Intravenous, Every 10 min PRN, 2 doses, Starting on Fri09/13/24 at 0816, Until Fri09/13/24 at 1219, Routine, Recovery (Phase I only), pain score of 9-10 out of 10 ipratropium-albuter ol (Duo-Neb) 0.5-2.5 mg/3 mL nebulizer solution 3 mL 3 mL, Nebulization, Once as needed, 1 dose, Starting on Fri09/13/24 at 0816, Until Fri09/13/24 at 1219, Routine, Recovery (Phase I only), shortness of breath naloxone (Narcan) injection 0.4 mg 0.4 mg, Intravenous, As needed, Starting on Fri09/13/24 at 0816, Until Fri09/13/24 at 1219, Routine, Recovery (Phase I only), respiratory depression ondansetron (Zofran) injection 4 mg 4 mg, Intravenous, Once as needed, 1 dose, Starting on Fri09/13/24 at 0816, Until Fri09/13/24 at 1219, Routine, Recovery (Phase I only), nausea, vomiting oxyCODONE (Roxicodone) immediate release tablet 10 mg 10 mg, Oral, Once as needed, 2 doses, Starting on Fri09/13/24 at 0816, Until Fri09/13/24 at 1219, Routine, Recovery (Phase I only), pain score of 6-8 out of 10 oxyCODONE (Roxicodone) immediate release tablet 5 mg 5 mg, Oral, Once as needed, 2 doses, Starting on Fri09/13/24 at 0816, Until Fri09/13/24 at 1219, Routine, Recovery (Phase I only), pain score of 3-5 out of 10 Povidone-Iodine 5 % swab solution 1 Application Nasal, Once, 1 dose, On Fri09/13/24 at 0700, Routine Given 09/13/2024 7:04 AM EDT 1 Application scopolamine (Transderm-Scop) patch 1 patch 1 patch, Transdermal, Once, 1 dose, On Fri09/13/24 at 0700, Routine, Holding - Preprocedure Medication Applied 09/13/2024 7:04 AM EDT 1 patch Behind Right Ear sodium chloride 0.9 % flush 10 mL 10 mL, Intravenous, Every 12 hours, First dose on Fri09/13/24 at 0700, Until Discontinued, Routine, Holding - Preprocedure Given 09/13/2024 7:04 AM EDT 10 mL sodium chloride 0.9 % flush 10 mL 10 mL, Intravenous, As needed, Starting on Fri09/13/24 at 0614, Until Fri09/13/24 at 1219, Routine, Holding - Preprocedure, line care Vancomycin HCl in NaCl (Vancocin) IVPB 1,000 mg 1,000 mg (rounded from 1,020 mg = 15 mg/kg 68 kg), Intravenous, Once, 1 dose, On Fri09/13/24 at 0700, at 250 mL/hr, Routine Given 09/13/2024 7:04 AM EDT 1,000 mg 250 mL/hr documented in this encounter Active and Recently Administered Medications Times are shown in EDT. Scheduled Medication Order 09/11/2024 09/12/2024 09/13/2024 acetaminophen (Tylenol) tablet 1,000 mg (COMPLETED) 1,000 mg, Oral, Once, 1 dose, On Fri09/13/24 at 0700, Routine, Holding - Preprocedure 0704 (Given - Provid er: Radha Ritchie RN) ceFAZolin (Ancef) injection 2 g 2 g, Intravenous, Once, 1 dose, On Fri09/13/24 at 0915, Routine, Anesthesia Intraprocedure 0915 (Canceled Entry - Provider: Automatic Discharge Provider - Comment: Automatically canceled at discontinue of medication order) Povidone-Iodine 5 % swab solution 1 Application (COMPLETED) Nasal, Once, 1 dose, On Fri09/13/24 at 0700, Routine 0704 (Given - Provid er: Radha Ritchie RN) scopolamine (Transderm-Scop) patch 1 patch 1 patch, Transdermal, Once, 1 dose, On Fri09/13/24 at 0700, Routine, Holding - Preprocedure 0704 (Medication Cami lied - Provider: Radha Ritchie RN)1010 (Due: Medication Removed - Provider: Automatic Discharge Provider - Comment: Time automatically adjusted from order being discontinued) sodium chloride 0.9 % flush 10 mL(Linked Group 1) 10 mL, Intravenous, Every 12 hours, First dose on Fri09/13/24 at 0700, Until Discontinued, Routine, Holding - Preprocedure 0704 (Given - Provid er: Radha Ritchie RN) Vancomycin HCl in NaCl (Vancocin) IVPB 1,000 mg (COMPLETED) 1,000 mg (rounded from 1,020 mg = 15 mg/kg 68 kg), Intravenous, Once, 1 dose, On Fri09/13/24 at 0700, at 250 mL/hr, Routine 0704 (Given - Provid er: Radha Ritchie RN) PRN Medication Order 09/11/2024 09/12/2024 09/13/2024 droperidol (Inapsine) injection 0.625 mg 0.625 mg, Intravenous, Once as needed, 1 dose, Starting on Fri09/13/24 at 0816, Until Fri09/13/24 at 1219, Routine, Recovery (Phase I only), nausea, vomiting fentaNYL (Sublimaze) injection 50 mcg 50 mcg, Intravenous, Every 5 min PRN, 2 doses, Starting on Fri09/13/24 at 0816, Until Fri09/13/24 at 121, Routine, Recovery (Phase I only), pain score of 3-4 out of 10 HYDROmorphone (Dilaudid) injection 0.5 mg 0.5 mg, Intravenous, Every 10 min PRN, 2 doses, Starting on Fri09/13/24 at 0816, Until Fri09/13/24 at 1219, Routine, Recovery (Phase I only), pain score of 9-10 out of 10 ipratropium-albuterol (Duo-Neb) 0.5-2.5 mg/3 mL nebulizer solution 3 mL 3 mL, Nebulization, Once as needed, 1 dose, Starting on Fri09/13/24 at 0816, Until Fri09/13/24 at 121, Routine, Recovery (Phase I only), shortness of breath naloxone (Narcan) injection 0.4 mg 0.4 mg, Intravenous, As needed, Starting on Fri09/13/24 at 0816, Until Fri09/13/24 at 121, Routine, Recovery (Phase I only), respiratory depression ondansetron (Zofran) injection 4 mg 4 mg, Intravenous, Once as needed, 1 dose, Starting on Fri09/13/24 at 0816, Until Fri09/13/24 at 1219, Routine, Recovery (Phase I only), nausea, vomiting oxyCODONE (Roxicodone) immediate release tablet 10 mg(Linked Group 2) 10 mg, Oral, Once as needed, 2 doses, Starting on Fri09/13/24 at 0816, Until Fri09/13/24 at 121, Routine, Recovery (Phase I only), pain score of 6-8 out of 10 oxyCODONE (Roxicodone) immediate release tablet 5 mg(Linked Group 2) 5 mg, Oral, Once as needed, 2 doses, Starting on Fri09/13/24 at 0816, Until Fri09/13/24 at 1219, Routine, Recovery (Phase I only), pain score of 3-5 out of 10 sodium chloride 0.9 % flush 10 mL(Linked Group 1) 10 mL, Intravenous, As needed, Starting on Fri09/13/24 at 0614, Until Fri09/13/24 at 1219, Routine, Holding - Preprocedure, line care Linked Groups Order Group 1: Insert peripheral IV (CANCELED) Once, On Fri09/13/24 at 0615, For 1 occurrence, Holding - Preprocedure And Saline lock IV (CANCELED) Once, On Fri09/13/24 at 0615, For 1 occurrence, Holding - Preprocedure And sodium chloride 0.9 % flush 10 mLJump to med 10 mL, Intravenous, Every 12 hours, First dose on Fri09/13/24 at 0700, Until Discontinued, Routine, Holding - Preprocedure And sodium chloride 0.9 % flush 10 mLJump to med 10 mL, Intravenous, As needed, Starting on Fri09/13/24 at 0614, Until Fri09/13/24 at 1219, Routine, Holding - Preprocedure, line care Group 2: oxyCODONE (Roxicodone) immediate release tablet 5 mgJump to med 5 mg, Oral, Once as needed, 2 doses, Starting on Fri09/13/24 at 0816, Until Fri09/13/24 at 1219, Routine, Recovery (Phase I only), pain score of 3-5 out of 10 Or oxyCODONE (Roxicodone) immediate release tablet 10 mgJump to med 10 mg, Oral, Once as needed, 2 doses, Starting on Fri09/13/24 at 0816, Until Fri09/13/24 at 1219, Routine, Recovery (Phase I only), pain score of 6-8 out of 10 documented in this encounter Additional Health Concerns [...] documented as of this encounter Care Teams Civil Project Engineer Relationship Specialty Start Date End Date Azucena Huerta, [facility] [place] [id number] PCP - General 04/14/23 documented as of this encounter
--- OUTSIDE RECORDS SUMMARY | 2024-09-13 07:26 | XMS_ITS | Encounter Summary ---
Author Organization [facility] Address [address] [place] [address] Care Team Providers Care Mattress Inspector Name Role Phone Azucena Huerta APRN Primary Care Provider +1- [phone] Reason for Visit * Auth/Cert (Routine) Specialty Diagnoses / Procedures Referred By Contac t Referred To Contact Diagnoses Pain from implanted hardware, subsequent encounter Pain from implanted hardware, subsequent encounter [T85.848D] Procedures [place] REMOVAL DEEP IMPLANT REMOVAL, HARDWARE Orlin Claros MD [address] [facility] [address] [place] [address] Phone: tel: fax: [facility] [address] [place] [address] Phone: tel: Referral ID Status Reason Start Date Expiration Date Visits Re quested Visits Authorized [id number] 1 1 Encounter Details Date Type Department Care Team (Late st Contact Info) Description 09/13/2024 7:26 AM EDT Anesthesia Event [facility] [address] [place] [address] Juan Pablo Baker MD [address] [place] [address] Prince Estrella MD [address] [place] [address] Anesthesia Record Procedure Summary Procedure Name Responsible Anesthesiologist Anesthesia Start Time Anesthesia Stop Time REMOVAL, HARDWARE (Left: Arm Lower) Juan Pablo Baker MD 09/13/24 0726 09/13/24 0833 Events Date Time Event Comment 09/13/2024 0725 In Room 0726 ANPATVER 0726 An Start The patient was reevaluated immediately before sedation and remains eligible for anesthesia plan. 0726 An Start Data 0734 An Induction The patient was reevaluated immediately before moderate or deep sedation use and before anesthesia induction. 0741 An Intubation 0746 Anesthesia Ready 0756 Proc Start 0816 Proc Fin 0825 An Extubation 0828 an stop data 0829 Out of Room 0833 Handoff to Receiving I compl eted my handoff to the receiving clinician during which we: 1. Identified the patient 2. Identified the responsible provider 3. Reviewed the pertinent medical history 4. Discussed the surgical course 5. Reviewed intra-op anesthesia management and issues during anesthesia 6. Set expectations for post-procedure period 7. Allowed opportunity for questions and acknowledgement of understanding. 0833 An Stop Meds Name Total propofol (Diprivan) injection 10 mg/mL 2 00 mg ondansetron (Zofran) injection 2 mg/mL 4 mg dexamethasone (Decadron) injection 4 mg/ mL 4 mg Lidocaine HCl 100 MG/5ML 60 mg rocuronium (ZeMuron) injection 10 mg/mL 60 mg 0.5% ropivacaine 25 mL fentaNYL (Sublimaze) injection 200 mcg midazolam (Versed) injection 2 mg phenylephrine (Jacky-Synephrine) prefilled syringe 1 mg/10 mL 50 mcg sugammadex (Bridion) injection 100 mg/mL 400 mg ePHEDrine injection prefilled syringe 5 mg/mL 5 mg vancomycin (Vancocin) vial 1g 1 g lactated Ringer's infusion 150 mL * Agents Name O2 * Blood No blood administrations on file. Lines, Drains, and Airways Type Details Placement Removal Wound 09/13/24; 802; N; Y es; Surgical; Open Surg; Arm; Left, Lower, Posterior 09/13/24 08 by Gricelda Mejía RN Peripheral IV Placement Date: 10/01; Placement Time: 637; Catheter Size: 22 G; Orientation: Posterior, Right; Location: Hand; Site Prep: Chlorhexidine ; Local Anesth: None; Technique: Anatomical landmarks; Inserted by: Shabnam RITCHIE RN; Insertion Attempts: 1; Patient Tolerance: Tolerated well; Removal Date: 09/13/24; Removal Time: 94409/13/24 06 by Radha Ritchie RN 09/13/24 09 by Olga Lidia Staton RN ETT Placement Date: 10/01; Placement Time: 740 (created via procedure documentation); Mask Ventilation: 1; Technique: Direct laryngoscopy; Type: ETT - single; Single Lumen Tube Size: 7 mm; Cuffed: Yes; Laryngoscope: Neyda; Location: Oral; Grade View: Grade I; Insertion Attempts: 1; Placement Verification: Auscultation, Capnometry; Airway Comments: Atraumatic. No change to dentition. ; Placed by: Other (Comment); Removal Date: 09/13/24; Removal Time: 82609/13/24740 by Prince Estrlela MD 09/13/24 08 by Prince Estrella MD documented in this encounter Social History Tobacco Use Types Packs/Day Years [...] place to sleep or slept in a prison (including now)? No 04/02/2023 PHQ-9 Answer Date [...] on file documented as of this encounter Miscellaneous Notes * Anesthesia Postprocedure Evaluation - Prince Estrella MD - 09/13/2024 8:33 AM EDT Patient: Levi Lassiter Anesthesia Type: general Vitals Value Taken Time BP 156/137 09/13/24 08:33 Temp 97.6 09/13/24 08:33 Pulse 90 09/13/24 08:32 Resp 19 09/13/24 08:32 SpO2 79 % 09/13/24 08:32 Vitals shown include unfiled device data. Anesthesia Post Evaluation Patient location during evaluation: PACU Patient participation: complete - patient participated Level of consciousness: awake Pain management: adequate (pain score 0-3) Airway patency: natural airway Cardiovascular status: acceptable and hemodynamically stable Respiratory status: acceptable, blow-by oxygen, unassisted and spontaneous ventilation Hydration status: acceptable Nausea/Vomiting: No No notable events documented. Cosigned by JuanP ablo Baker MD at 09/14/2024 10:24 AM EDT Associated attestation - Juan Pablo Baker MD - 09/14/2024 10:24 AM EDT I agree with the findings and care plan documented in the postprocedure evaluation note. * Anesthesia Procedure Notes - Prince Estrella MD - 09/13/2024 8:07 AM EDT Associated Order(s): Airway Airway Date/Time: 09/13/2024 7:41 AM Reason: elective Airway not difficult General Information and Staff Patient location during procedure: OR Anesthesiologist: Juan Pablo Baker MD Resident: Prince Estrella MD Other anesthesia staff: Domo Ruiz MD Performed: Other Anesthesia Staff Patient Condition Indications for airway management: anesthesia Patient position: sniffing Final Airway Details Final airway type: endotracheal airway Successful airway: ETT Cuffed: yes Successful intubation technique: direct laryngoscopy Adjuncts used in placement: intubating stylet Endotracheal tube insertion site: oral Blade: Neyda ETT size (mm): 7.0 Cormack-Lehane Classification: grade I - full view of glottis Placement verified by: chest auscultation and capnometry Measured from: lips ETT to lips (cm): 21 Additional Comments Atraumatic. No change to dentition. Cosigned by Juan Pablo Baker MD at 09/14/2024 10:25 AM EDT Associated attestation - Juan Pablo Baker MD - 09/14/2024 10:25 AM EDT I was present during all critical and page portions of the procedure(s) and immediately available [facility] the entire duration. See resident note for details. * Anesthesia Procedure Notes - South oLu MD - 09/13/2024 7:25 AM EDT Associated Order(s): Peripheral Block Peripheral Block Patient location during procedure: OR Start time: 09/13/2024 6:55 AM End time: 09/13/2024 7:05 AM Reason for block: post-op pain management Block is at surgeon's request Staffing Performed: Resident Anesthesiologist: Elias Solis MD Resident: South Lou MD Preanesthetic Checklist Completed: patient identified, IV checked, site marked, risks and benefits discussed, surgical consent, monitors and equipment checked, pre-op evaluation and timeout performed Peripheral Block Patient position: supine Prep: ChloraPrep Patient monitoring: continuous pulse ox, heart rate and ekg monitor Block type: supraclavicular Laterality: left Injection technique: single-shot Guidance: ultrasound guided Local infiltration: lidocaine Ultrasound used for needle placement AND ultrasound image retained Needle Needle localization: anatomical landmarks and ultrasound guidance Medications Administered fentaNYL (Sublimaze) injection - Intravenous 100 mcg - 09/13/2024 6:55:00 AM midazolam (Versed) injection - Intravenous 2 mg - 09/13/2024 6:55:00 AM 0.5% ropivacaine - Injection 25 mL - 09/13/2024 6:55:00 AM Assessment Injection assessment: negative aspiration for heme, local visualized surrounding nerve on ultrasound and incremental injection Paresthesia pain: none Heart rate change: no Slow fractionated injection: yes Additional Notes The patient was placed in a supine position. A linear ultrasound probe was placed in the supraclavicular fossa. The relevant neurovascular and muscle anatomy was identified including the sternocleidomastoid m. , subclavian a. , brachial plexus, first rib, and pleura. A large area of skin encompassing the intended needle insertion site was cleansed using chloraprep.The skin was anesthetized by creating a skin wheal with lidocaine. The block needle was inserted through anesthetized skin and advanced from lateral to medial using an in-plane technique with ultrasound guidance. Local anesthetic was injected in 5 mL aliquots with incremental aspiration negative for heme. Local anesthetic injected towards the corner pocket where 10cc local anesthetic was administered. The needle was then guided between the brachial plexus and prevertebral fascia where 15cc was administered. A total of 25cc of 0.50% Ropivacaine without adjunct was utilized for the block. The needle was removed from the patient. The patient tolerated the procedure well, with no obvious complications. Cosigned by Elias Solis MD at 09/13/2024 8:11 AM EDT Associated attestation - Elias Solis MD - 09/13/2024 8:11 AM EDT I was present during all critical and page portions of the procedure(s) and immediately available [facility] the entire duration. See resident note for details. * Anesthesia Preprocedure Evaluation - Prince Estrella MD - 09/13/2024 6:47 AM EDT Patient: Levi Lassiter Procedure Information Date/Time: 09/13/24729 Procedure: REMOVAL, HARDWARE (Left: Arm Lower) Location: [address] OR Surgeons: Orlin Claros MD physician aide Evaluation Current - negative Obstetric History- negative Relevant Problems No relevant active problems Clinical information reviewed: Med Hx Tobacco Allergies Surg Hx Fam Hx Soc Hx OB Status ROS Anesthesia: Date of last anesthetic: 04/01/2023 - Laminectomy history of previous anesthesia. Does not have a history of anesthetic complications and a history of delayed emergence. Cardiovascular: Negative cardio ROS. Patient's ECG reviewed. Respiratory: Negative respiratory ROS.no asthma: Has not had an upper respiratory infection in last 30 days. Hasnot had RSV in the last 30 days. HEENT: Negative HEENT ROS.Does not have chipped teeth, loose teeth or missing teeth. Neurological: Negative neuro ROS. no seizures: Did not have a cerebrovascular accident. Musculoskeletal: Negative musculoskeletal ROS. Gastrointestinal: Negative GI ROS. Hematological/Lymphatic: negative hematology/oncology ROS. Endocrine/Metabolic: Negative endocrine ROS. Physical Exam Airway Mallampati: I Mouth opening: normal TM distance: >3 FB Neck ROM: full Cardiovascular Rhythm: regular Rate: normal Dental - normal exam Pulmonary Neurological Oriented: normal to time, normal to place and normal to person Skin Skin: warm and dry Musculoskeletal Extremities Anesthesia Plan ASA 2 Plan was reviewed with: resident and attending Anesthesia technique(s) discussed with the patient/family: general Anesthesia plan agreed upon was: general Anesthetic plan and risks discussed with patient. Additional Equipment Requests Cosigned by Juan Pablo Baker MD at 09/14/2024 10:24 AM EDT Associated attestation - Juan Pablo Baker MD - 09/14/2024 10:24 AM EDT I agree with the findings and care plan documented in the preprocedure evaluation note. documented in this encounter Plan of Treatment Not on file documented as of this encounter Goals Goal Patient Goal Type Associated Problems Recent Progress Patient-Stated? Author Autogenerat ed Goal Care Plan Autogenerated Problem No Orlin Claros MD documented as of this encounter Procedures Procedure Name Priority Date/Time Associated Diagnosis Comments PB ANESTHESIA PLACEHOLDER Routine 09/13/2024 7:41 AM EDT NJ AN ELECTIVE ENDOTRACHEAL AIRWAY Routine 09/13/2024 7:41 AM EDT PB POINT OF CARE IMAGING PLACEHOLDER Routine 09/13/2024 6:55 AM EDT documented in this encounter Results * [place] AN ELECTIVE ENDOTRACHEAL AIRWAY, PB ANESTHESIA PLACEHOLDER (09/13/2024 7:41 AM EDT) Narrative Juan Pablo Baker MD - 09/13/2024 7:41 AM EDT Juan Pablo Baker MD 09/14/2024 10:25 AM Airway Date/Time: 09/13/2024 7:41 AM Reason: elective Airway not difficult General Information and Staff Patient location during procedure: OR Anesthesiologist: Juan Pablo Baker MD Resident: Prince Estrella MD Other anesthesia staff: Domo Ruiz MD Performed: Other Anesthesia Staff Patient Condition Indications for airway management: anesthesia Patient position: sniffing Final Airway Details Final airway type: endotracheal airway Successful airway: ETT Cuffed: yes Successful intubation technique: direct laryngoscopy Adjuncts used in placement: intubating stylet Endotracheal tube insertion site: oral Blade: Neyda ETT size (mm): 7.0 Cormack-Lehane Classification: grade I - full view of glottis Placement verified by: chest auscultation and capnometry Measured from: lips ETT to lips (cm): 21 Additional Comments Atraumatic. No change to dentition. us Juan Pablo Baker MD ANESTHESIA ORDERABLES Final R esult * PB POINT OF CARE IMAGING PLACEHOLDER (09/13/2024 6:55 AM EDT) Narrative Elias Solis MD - 09/13/2024 6:55 AM EDT Elias Solis MD 09/13/2024 8:11 AM Peripheral Block Patient location during procedure: OR Start time: 09/13/2024 6:55 AM End time: 09/13/2024 7:05 AM Reason for block: post-op pain management Block is at surgeon's request Staffing Performed: Resident Anesthesiologist: Elias Solis MD Resident: South Lou MD Preanesthetic Checklist Completed: patient identified, IV checked, site marked, risks and benefits discussed, surgical consent, monitors and equipment checked, pre-op evaluation and timeout performed Peripheral Block Patient position: supine Prep: ChloraPrep Patient monitoring: continuous pulse ox, heart rate and ekg monitor Block type: supraclavicular Laterality: left Injection technique: single-shot Guidance: ultrasound guided Local infiltration: lidocaine Ultrasound used for needle placement AND ultrasound image retained Needle Needle localization: anatomical landmarks and ultrasound guidance Medications Administered fentaNYL (Sublimaze) injection - Intravenous 100 mcg - 09/13/2024 6:55:00 AM midazolam (Versed) injection - Intravenous 2 mg - 09/13/2024 6:55:00 AM 0.5% ropivacaine - Injection 25 mL - 09/13/2024 6:55:00 AM Assessment Injection assessment: negative aspiration for heme, local visualized surrounding nerve on ultrasound and incremental injection Paresthesia pain: none Heart rate change: no Slow fractionated injection: yes Additional Notes The patient was placed in a supine position. A linear ultrasound probe was placed in the supraclavicular fossa. The relevant neurovascular and muscle anatomy was identified including the sternocleidomastoid m. , subclavian a. , brachial plexus, first rib, and pleura. A large area of skin encompassing the intended needle insertion site was cleansed using chloraprep. The skin was anesthetized by creating a skin wheal with lidocaine. The block needle was inserted through anesthetized skin and advanced from lateral to medial using an in-plane technique with ultrasound guidance. Local anesthetic was injected in 5 mL aliquots with incremental aspiration negative for heme. Local anesthetic injected towards the corner pocket where 10cc local anesthetic was administered. The needle was then guided between the brachial plexus and prevertebral fascia where 15cc was administered. A total of 25cc of 0.50% Ropivacaine without adjunct was utilized for the block. The needle was removed from the patient. The patient tolerated the procedure well, with no obvious complications. Elias Solis MD ANESTHESIA ORDERABLES Final Result documented in this encounter Visit Diagnoses Not on filedocumented in this encounter Administered Medications Inactive Administered Medications - up to 3 most recent administrations Medication Order MAR Action Action Date Dose Rate Site dexamethasone (Decadron) injection Intravenous, As needed, Starting on Fri09/13/24 at 0804, Until Fri09/13/24 at 0833, Routine, Anesthesia Intraprocedure Given 09/13/2024 8:04 AM EDT 4 mg ePHEDrine Sulfate (Akovaz) injection Intravenous, As needed, Starting on Fri09/13/24 at 0804, Until Fri09/13/24 at 0833, Routine, Anesthesia Intraprocedure Given 09/13/2024 8:11 AM EDT 2.5 mg Given 09/13/2024 8:04 AM EDT 2.5 mg fentaNYL (Sublimaze) injection Intravenous, Once PRN Procedure, Starting on Fri09/13/24 at 0655, Until Fri09/13/24 at 0734, Routine, Anesthesia Intraprocedure Given 09/13/2024 7:34 AM EDT 100 mcg Given 09/13/2024 6:55 AM EDT 100 mcg lactated Ringer's infusion Intravenous, Continuous PRN, Starting on Fri09/13/24 at 0725, Until Fri09/13/24 at 0833, Routine New Bag 09/13/2024 7:25 AM EDT Lidocaine HCl prefilled syringe Buccal, As needed, Starting on Fri09/13/24 at 0734, Anesthesia Intraprocedure Given 09/13/2024 7:34 AM EDT 60 mg midazolam (Versed) injection Intravenous, Once PRN Procedure, Starting on Fri09/13/24 at 0655, Until Fri09/13/24 at 0655, Routine, Anesthesia Intraprocedure Given 09/13/2024 6:55 AM EDT 2 m g ondansetron (Zofran) injection Intravenous, As needed, Starting on Fri09/13/24 at 0817, Until Fri09/13/24 at 0833, Routine, Anesthesia Intraprocedure Given 09/13/2024 8:17 AM EDT 4 mg phenylephrine in NS (Jacky-Synephrine) 100 mcg/mL prefilled syringe Intravenous, As needed, Starting on Fri09/13/24 at 0747, Until Fri09/13/24 at 0833, Routine, Anesthesia Intraprocedure Given 09/13/2024 7:47 AM EDT 50 mcg propofol (Diprivan) injection Intravenous, As needed, Starting on Fri09/13/24 at 0734, Until Fri09/13/24 at 0833, Routine, Anesthesia Intraprocedure Given 09/13/2024 7:34 AM EDT 200 mg rocuronium (ZeMuron) injection Intravenous, As needed, Starting on Fri09/13/24 at 0734, Until Fri09/13/24 at 0833, Routine, Anesthesia Intraprocedure Given 09/13/2024 7:34 AM EDT 60 mg ropivacaine (Naropin) injection Injection, Once PRN Procedure, Starting on Fri09/13/24 at 0655, Until Fri09/13/24 at 0655, Routine, Anesthesia Intraprocedure Given 09/13/2024 6:55 AM EDT 25 mL sugammadex (Bridion) 100 MG/ML injection Intravenous, As needed, Starting on Fri09/13/24 at 0819, Until Fri09/13/24 at 0833, Routine, Anesthesia Intraprocedure Given 09/13/2024 8:22 AM EDT 200 mg Given 09/13/2024 8:19 AM EDT 200 mg vancomycin (Vancocin) vial for injection Intravenous, As needed, Starting on Fri09/13/24 at 0809, Until Fri09/13/24 at 0833, Routine, Anesthesia Intraprocedure Given 09/13/2024 7:36 AM EDT 1 g documented in this encounter Additional Health Concerns [...] documented as of this encounter Care Teams Mattress Inspector Relationship Specialty Start Date End Date Azucena Huerta APRN [address] [place] [address] [phone] PCP - General 04/14/23 documented as of this encounter
--- OUTSIDE RECORDS SUMMARY | 2024-09-13 07:30 | XMS_ITS | Encounter Summary ---
Author Organization [facility] Address [address] [place] [address] Care Team Providers Care Soft Work Wrapper Layer And Examiner Name Role Phone Azucena Huerta APRN Primary Care Provider +1- [phone] Reason for Visit * Auth/Cert (Routine) Specialty Diagnoses / Procedures Referred By Contac t Referred To Contact Diagnoses Pain from implanted hardware, subsequent encounter Pain from implanted hardware, subsequent encounter [T85.848D] Procedures [place] REMOVAL DEEP IMPLANT REMOVAL, HARDWARE Orlin Claros MD [id number] [place] [address] Phone: tel: fax: [facility] [address] [place] [address] Phone: tel: Referral ID Status Reason Start Date Expiration Date Visits Re quested Visits Authorized [id number] 1 1 Encounter Details Date Type Department Care Team (Late st Contact Info) Description 09/13/2024 7:30 AM EDT - 09/13/2024 9:35 AM EDT Surgery [facility] [address] [place] [address] Orlin Claros MD [id number] [place] [address] REMOVAL, HARDWARE [[id number] (CPT )] Surgery Details Date/Time Status Location OR Service Patient Class Case Class Case Type Trauma Case? 09/13/2024 7:30 AM Posted [facility] E-Electi ve Panel 1 Procedure LRB Anes Op Region Wound Class Comments REMOVAL, HARDWARE Left Choice Arm Lower Surgeon Surgeon Role Service Panel Orlin Claros MD Primary Orthopedic Surger y 1 Sanchez Lowery MD Fellow Orthopedic Surgery 1 documented in this encounter Social History Tobacco [...] place to sleep or slept in a penitentiary (including now)? No 04/02/2023 PHQ-9 Answer Date Recorded Patient Health Questionnaire-9 Score 0 04/20/2024 Utilities Answer Date Recorded In the past 12 months has e electric, gas, oil, or water [employer] threatened to shut off services in your [...] AM EDT Operative Note Date: 09/13/24 Location: [facility] Name: Levi Lassiter, : 2000, Diagnoses: Pre-op Diagnosis 1) left ulna painful hardware Post-op Diagnosis 1) left ulna painful hardware Procedure(s): Left ulna removal of hardware Attending Surgeon(s): * Orlin Claros - Primary Emergency Communications Officer(s): * Sanchez Lowery MD - Fellow Anesthesia: [...] visit. Results Review {Vanishing Link Review Results :[id number] I have reviewed the latest lab and [...] flush 10 mL 10 mL Intravenous q12h rOlin Claros MD And sodium chloride 0.9 % [...] * Pain from implanted hardware, subsequent encounter [T85.819D] now scheduled for REMOVAL, HARDWARE(Left). Past Medical History[1] Family History[2] Social History[3] SURGICAL HISTORY: Surgical History[4] Allergies[5] MEDICATIONS: Current Medications[6] Pan Sarabia [1] Past Medical History: Diagnosis Date Anxiety Bipolar 1 disorder ([facility]/HCC) Depression PTSD (post-traumatic stress disorder) [2] Family [...] card, photo ID, along with power of finance attorney, guardianship or advanced directives if applicable Do [...] HOUR (NON-REPORTABLE) Routine 09/13/2024 8:25 AM EDT [place] REMOVAL DEEP IMPLANT 09/13/2024 7:10 AM EDT [...] Negative 09/13/2024 7:07 AM EDT [facility] Animal Ride Attendant ID Radha Ritchie 09/13/2024 7:07 AM EDT HEALTHCARE LAB Device ID [id number] 09/13/2024 7:07 AM EDT HEALTH[facility]ARE LAB Urine Urine specimen obtained by clean catch procedure / Unknown 09/13/2024 7:01 AM EDT 09/13/2024 7:07 AM EDT Orlin Claros MD LAB POINT OF CARE TEST DOCKED DEVICE UNSOLICITED RESULTS Final Result [facility] [address] [place] [address] documented in this encounter Visit Diagnoses Diagnosis Pain from implanted hardware- Primary Pain from implanted hardware, subsequent encounter documented in this encounter Admitting Diagnoses Diagnosis [...] documented as of this encounter Care Teams Soft Work Wrapper Layer And Examiner Relationship Specialty Start Date End Date Azucena Huerta APRN [address] [place] [id number] PCP - General 04/14/23 documented as of this encounter
--- OUTSIDE RECORDS SUMMARY | 2024-10-11 16:18 | XMS_ITS | Encounter Summary ---
Author Organization [facility] Address [address] [place] [address] Care Team Providers Care As400 Developer Name Role Phone Azucena Huerta APRN Primary Care Provider +1- [phone] Encounter Details Date Type Department Care Team (Late st Contact Info) Description 09/13/2024 Orders Only External Location [address] [place] [id number] Provider, External Social History Tobacco Use Types Packs/Day Years [...] place to sleep or slept in a halfway (including now)? No 04/02/2023 PHQ-9 Answer Date [...] on file documented as of this encounter Plan of Treatment Not on file documented as of this encounter Goals Goal Patient Goal Type Associated Problems Recent Progress Patient-Stated? Author Autogenerat ed Goal Care Plan Autogenerated Problem No Orlin Claros MD documented as of this encounter Procedures Procedure Name Priority Date/Time Associated Diagnosis Comments POC ULTRASOUND 09/13/2024 documented in this encounter Results * POC Imaging (09/13/2024) Anatomical Region Laterality Modality Pelvis Other 09/13/2024 us External Provider IMG POINT OF CARE ULTRASOUND F inal Result documented in this encounter Visit Diagnoses Not on filedocumented in this encounter Additional Health Concerns Active [...] documented as of this encounter Care Teams As400 Developer Relationship Specialty Start Date End Date Azucena Huerta APRN [address] [place], [place] [id number] PCP - General 04/14/23 documented as of this encounter
--- OUTSIDE RECORDS SUMMARY | 2024-10-11 16:18 | XMS_ITS | Clinical Summary ---
Author Organization [employer] ([place], [place], [place], [place]) Address [address] [place] [address] Care Team Providers Care Tare Man Name Role Phone [facility] Connection, Find-A-Doc Primary Care Provider Allergies No known active allergies Medications No known medications Social History Tobacco Use Types Packs/Day Years Used Date Smoking Tobacco: Never Smokeless Tobacco: Current Tobacco Cessation:Ready to Q uit: Not Asked; Counseling Given: Not Answered Alcohol Use Standard Drinks/Week Comments Not Currently 0 (1 standard drink = 0.6 oz pur e alcohol) Family and Community Support Answer Kar e Recorded Help with Day to Day Activities Not on file 10/04/2023 Feeling Lonely or Isolated Not on file 10/03 Educational Attainment Answer Date Clayton rded Speak language other than Luxembour[place] at home Not on file 10/04/2023 Want help with school or training Not on file 10/04/2023 Substance Use Answer Date Recorded Used prescription meds for non-medical reasons N ot on file 10/04/2023 Used illegal drugs past 12 months Not on file 10/04/2023 Comments No Sex and Gender Information Value Date Recorded Sex Assigned at Not on file Legal Sex Female 6:37 PM CDT Gender Identity Not on file Sexual Orientation Not on file Last Filed Vital Signs Vital Sign Reading Time Taken Comments Blood Pressure 123/74 07/03/2024 10:40 PM EDT Pulse 79 07/03/2024 10:40 PM EDT Temperature 36.6 C (97.8 F) 07/03/2024 10:40 PM EDT Respiratory Rate 18 07/03/2024 10:40 PM EDT Oxygen Saturation 100% 10/02/2023 11:13 PM EDT Inhaled Oxygen Concentration - - Weight 72.6 kg (160 lb) 07/03/2024 10:40 PM EDT Height 157.5 cm (5' 2 ) 07/03/2024 10:40 PM EDT Body Mass Index 29.26 07/03/2024 10:40 PM EDT Plan of Treatment Health Maintenance Due Date Last Done Comments Depression Screening (12+) 2010 HIV Screening 2013 Hepatitis C Screening 2016 Pap Smear 09/30/2019 COVID-19 VACCINE ( season) 2023 Tobacco Cessation Counseling and Screening (12+) 10/01/2024 10/02/2023 Influenza Vaccine (#1) 2024 DTAP/TDAP/TD VACCINES (9 - Td or Tdap) 03/31/2033 03/31/2023, 05/21/2018, 05/18/2009, Additional history exists Pneumococcal Vaccine: 0-49 Years Aged Out No longer eligible based on patient's age to complete this topic Insurance [facility] Care Teams Tare Man Relationship Specialty Start Date End Date [facility] Connection, Find-A-Doc [facility] [place] [address] PCP - General 07/03/24
--- OUTSIDE RECORDS SUMMARY | 2024-10-11 16:18 | XMS_ITS | Encounter Summary ---
Author Organization [employer] ([place], [place], [place], [place]) Address [address] [place] [address] Care Team Providers Care Docking Saw Operator Name Role Phone [facility] Connection, Find-A-Doc Primary Care Provider Encounter Details Date Type Department Care Team (Late st Contact Info) Description 07/03/2024 Hospital Encounter [facility] [address] [place] [address] Macho Landis MD [address] [place] [address] Social History Tobacco Use Types Packs/Day Years Used Date Smoking Tobacco: Never Smokeless Tobacco: Current Alcohol Use Standard Drinks/Week Comments Not Currently 0 (1 standard drink = 0.6 oz pur e alcohol) Family and Community Support Answer Kar e Recorded Help with Day to Day Activities Not on file 10/04/2023 Feeling Lonely or Isolated Not on file 10/03 Educational Attainment Answer Date Clayton rded Speak language other than Puerto Rican at home Not on file 10/04/2023 Want [...] on file Sexual Orientation Not on file documented as of this encounter Plan of Treatment Not on file documented as of this encounter Visit Diagnoses Not on filedocumented in this encounter Care Teams Docking Saw Operator Relationship Specialty Start Date End Date [facility] Wendy, Find-A-Doc [facility] Find-a-Doc [place], [place] [id number] PCP - General 07/03/24 documented as of this encounter
--- OUTSIDE RECORDS SUMMARY | 2024-10-11 16:18 | XMS_ITS | Encounter Summary ---
Author Organization [facility] Address [address] [place] [address] Care Team Providers Care Soil Science Technical Officer Name Role Phone Azucena Huerta APRN Primary Care Provider +1- [phone] Encounter Details Date Type Department Care Team (Latest Contact Info) Description 08/20/2024 Travel Social History Tobacco Use Types Packs/Day Years [...] filedocumented in this encounter Additional Health Concerns Infection [...] documented as of this encounter Care Teams Soil Science Technical Officer Relationship Specialty Start Date End Date Azucena Huerta, PLATE CLEANER [address] [facility] [place] [id number] PCP - General 04/14/23 documented as of this encounter
--- OUTSIDE RECORDS SUMMARY | 2024-10-11 16:18 | XMS_ITS | Encounter Summary ---
Author Organization [facility] Address [address] [place] [address] Care Team Providers Care Mold Release Worker Name Role Phone Azucena Huerta APRN Primary Care Provider +1- [phone] Encounter Details Date Type Department Care Team (Latest Contact Info) Description 08/24/2024 Travel Social History Tobacco Use Types Packs/Day [...] place to sleep or slept in a [place] [facility] (including now)? No 04/02/2023 PHQ-9 Answer Date [...] documented as of this encounter Care Teams Mold Release Worker Relationship Specialty Start Date End Date Azucena Huerta APRN [address] [place] [id number] PCP - General 04/14/23 documented as of this encounter
--- OUTSIDE RECORDS SUMMARY | 2024-10-11 16:18 | XMS_ITS | Encounter Summary ---
Author Organization [facility] Address [address] [place] [address] Care Team Providers Care Washer Hand Name Role Phone Azucena Huerta APRN Primary Care Provider +1- [phone] Encounter Details Date Type Department Care Team (Late st Contact Info) Description 03/31/2023 Ophth Exam [facility] [address] [place] [address] Vel Duarte MD [address] [place] [address] Social History Tobacco Use Types Packs/Day Years Used Date Smoking Tobacco: Former Humiliation, Afraid, Rape, and Kick questionnair e [...] by your partner or ex-partner? No 04/02/2023 Hunger Vital Sign Answer Date Recorded Within [...] place to sleep or slept in a jail (including now)? No 04/02/2023 Utilities Answer Date Recorded In the past 12 months has th e electric, gas, oil, or water company threatened to shut off services in your home? No 04/02/2023 Comments No Sex and Gender Information Value Date Recorded Sex Assigned at Female 10/13/2023 9:32 AM EDT Legal Sex Female 5:57 PM EDT Gender Identity Female 10/13/2023 9:32 AM EDT Sexual Orientation Not on file documented as of this encounter Functional Status * Calculated C-SSRS Risk Score (Lifetime/Recent) Answer Date of Assessment Author No Risk Indicated 04/03/2023 8:00 AM Lydia Chi RN * Question Answer Date of Assessment Author 1. Wish to be (Past 1 Month) No 024 8:00 AM Lydia Chi RN 2. Non-Specific Active Suici adam Thoughts (Past 1 Month) No 04/03/2023 8:00 AM Nadine Chi RN 6. 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
--- OUTSIDE RECORDS SUMMARY | 2024-10-11 16:18 | XMS_ITS | Encounter Summary ---
Author Organization [facility] Address [address] [place] [address] Care Team Providers Care Band Presser Name Role Phone Azucena Huerta APRN Primary Care Provider +1- [phone] Reason for Visit * Reason Onset Date Comments HCN - Patient Message 09/14/2024 Encounter Details Date Type Department Care Team ([facility] st Contact Info) Description 09/14/2024 Telephone Medical Office Building Surgery Spine & Joint [address] [facility], [address] [place] [address] Adolfo Smith MD [address] [facility] [address] [place] [address] HCN - Patient Message Social History Tobacco Use Types Packs/Day Years [...] the past 12 months has th e [employer], gas, oil, or water [employer] threatened to shut off services in your home? No 04/02/2023 Comments Yes Sex and Gender Information Value Date Recorded Sex Assigned at Female 10/13/2023 9:32 AM EDT Legal Sex Female 5:57 PM EDT Gender Identity Female 10/13/2023 9:32 AM EDT Sexual Orientation Not on file documented as of this encounter Miscellaneous Notes * Telephone Encounter - Barb Peck - 09/14/2024 2:[address] Smith spoke with patient. * Telephone Encounter - Bev Mendoza - 09/14/2024 1:13 PM EDT Clinical Concern/Question HENNA Reason for Call: Patient returned Dr. Smith's call. Sent secure message to nurses but after 1 min, no one was available. Please call patient back to advise. Best contact number: [phone] (mobile) Optimal time of day to reach caller: ANYTIME Additional comments/information from caller: None Note: Please do not reply to this message. Follow-up communication and further actions as a result of this message need to be communicated with the patient directly, if the patient is not active onMyChart. If the patient is active on MyChart, they will receive notification of the communication/outcome via [employer]. documented in this encounter Plan of Treatment [...] documented as of this encounter Care Teams Band Presser Relationship Specialty Start Date End Date Azucena Huerta APRN [address] [place] [id number] PCP - General 04/14/23 documented as of this encounter
--- OUTSIDE RECORDS SUMMARY | 2024-10-11 16:18 | XMS_ITS | Encounter Summary ---
Author Organization [facility] Address [address] [place] [address] Care Team Providers Care Arm Rest Builder Name Role Phone Azucena Huerta APRN Primary Care Provider +1- [phone] Encounter Details Date Type Department Care Team ([facility] st Contact Info) Description 08/27/2024 Orders Only Medical Office Building Surgery Spine & Joint [address] [facility], [address] [place] [address] Manoj Maza, SASHA [address] [place] [address] Social History Tobacco Use Types Packs/Day Years [...] place to sleep or slept in a intermediate (including now)? No 04/02/2023 PHQ-9 Answer Date Recorded Patient Health Questionnaire-9 Score 0 04/20/2024 Utilities Answer Date Recorded In the past 12 months has th e [employer], gas, oil, or water [employer] threatened to shut off services in your [...] documented as of this encounter Care Teams Arm Rest Builder Relationship Specialty Start Date End Date Azucena Huerta APRN [address] [place] [address] PCP - General 04/14/23 documented as of this encounter
--- OUTSIDE RECORDS SUMMARY | 2024-10-11 16:18 | XMS_ITS | Encounter Summary ---
Author Organization [facility] Address [address] [address] Care Team Providers Care Foreman Or Supervisor And Operator Name Role Phone Azucena Huerta APRN Primary Care Provider +1- [phone] Encounter Details Date Type Department Care Team (Latest Contact Info) Description 09/13/2024 Travel Social History Tobacco Use Types Packs/Day [...] place to sleep or slept in a fpc (including now)? No 04/02/2023 PHQ-9 Answer Date [...] documented as of this encounter Care Teams Foreman Or Supervisor And Operator Relationship Specialty Start Date End Date Azucena Huerta APRN [address] [place] [id number] PCP - General 04/14/23 documented as of this encounter
--- OUTSIDE RECORDS SUMMARY | 2024-10-11 16:18 | XMS_ITS | Referral Summary ---
Author Organization [employer] ([place], [place], [place], [place]) Address [address] [place] [address] Care Team Providers Care Website/Blog Editor Name Role Phone [facility] Connection, Find-A-Doc Primary Care Provider Allergies No [...] Date Clayton rded Speak language other than Belize[place] at home Not on file 10/04/2023 Want [...] 07/03/2024 10:40 PM EDT Plan of Treatment Not on file Insurance [employer] Care Teams Website/Blog Editor Relationship Specialty Start Date End Date [facility] Wendy, Find-A-Doc [facility] [place] [address] PCP - General 07/03/24
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
== END 2024-10-11 23:59 | disposition home or self-care (01) ==
LOC: LAB 16:16
PROVIDERS: Visit Provider Obstetrics & Gynecology
DX: N92.6 Irregular menstruation, unspecified (principal); Z32.01 Encounter for pregnancy test, result positive
CPT/HCPCS: 36415; 84144; 84702

== ENCOUNTER 2024-11-22 13:01 | Outpatient (CLI) | payer OTHER, SELFPAY ==
--- OUTSIDE RECORDS SUMMARY | 2024-10-20 13:00 | XMS_ITS | Encounter Summary ---
Author Organization [facility] Address [address] [place] [address] Care Team Providers Care Evaporator Supervisor Name Role Phone Azucena Huerta APRN Primary Care Provider [phone] Reason for Visit * Reason Comments Initial Visit Encounter Details Date Type Department Care Team ([facility] st Contact Info) Description 10/20/2024 1:00 PM EDT Initial Medical Office Building Obstetrics and Gynecology [address] [facility], [address] [place] [address] Yifan Grimm MD [address] [facility] [address] [place] [address] [place]: [id number] Social History Tobacco Use Types Packs/Day Years Used Date Smoking Tobacco: Former Cigarettes Passive Smoke Exposure: Past Smokeless Tobacco: Never Tobacco Cessation:Counseling Given: Not [...] place to sleep or slept in a long term (including now)? No 04/02/2023 PHQ-9 Answer Date Recorded Patient Health Questionnaire-9 Score 0 04/20/2024 [place] Depression Scale Answer Date Recorded [place] Depression Scale Total 0 10/20/2024 The thought of harming myself has occurred to me . Never 10/20/2024 Utilities Answer Date Recorded In the past 12 months has th e electric, gas, oil, or water company threatened to shut off services in your home? No 04/02/2023 Estimated Date of Delivery Comme nts Yes 05/19/2025 Based on last me nstrual period of 08/12/2024, not preg shielded Sex and Gender Information Value Date Recorded Sex Assigned at Female 10/13/2023 9:32 AM EDT Legal Sex Female 5:57 PM EDT Gender Identity Female 10/13/2023 9:32 AM EDT Sexual Orientation Not on file documented as of this encounter Last Filed Vital Signs Vital Sign Reading Time Taken Comments Blood Pressure 120/71 10/20/2024 1:23 PM EDT Pulse 73 10/20/2024 1:23 PM EDT Temperature - - Respiratory Rate - - Oxygen Saturation 99% 10/20/2024 1:23 PM EDT Inhaled Oxygen Concentration - - Weight 68.9 kg (151 lb 14.4 oz) 10/20/2024 1:23 PM EDT Height 157.5 cm (5' 2 ) 10/20/2024 1:23 PM EDT Body Mass Index 27.78 10/20/2024 1:23 PM EDT documented in this encounter Miscellaneous Notes * Patient Instructions - Deloris Wesley - 10/20/2024 1:00 PM EDT Images from the original note were not included. [address] First Trimester Assessment Important phone numbers [facility]: [phone] Genetic Counselor - Michelle Myers [place]: [phone] Congratulations on your ! Learn more about how we can assess the health of you and your baby. Pre-eclampsia Risk Assessment: Am I at risk for pre-eclampsia this ? Certain health conditions can increase your risk for pre-eclampsia in . Pre-eclampsia is acomplication. It can cause high blood pressure, swelling, and headaches. It can even lead to organ damage. When it is severe, it can lead to delivery of your baby. We offer screening between 11-13 weeks of to assess your risk of pre- eclampsia. If you have a higher risk, we may ask you to start taking baby aspirin at 12 weeks. If you have a higher risk, studies show that baby aspirin can reduce the risk of delivering a baby early from pre-eclampsia by 62%. What should I expect? We look at your medical and history for risk factors. We do an ultrasound test. This lets us look at the blood flow through your uterus (known as uterineartery Dopplers). It takes less than 5 minutes and is not painful. We check your blood pressure. Defect Screening and Genetic Screening 50% of defects can be detected in the first trimester. Some defects are related to genetic issues and some are not. We offer early screening for all women in . Between 11-13 weeks of , all women should have an ultrasound. At this visit, we can assessseveral areas of your developing baby for abnormalities. These include: early brain anatomy, major heart defects, major body abnormalities, and common chromosome conditions such as Down syndrome. Tests for you baby: Nuchal Translucency (NT) Evaluation: Recommended to all women. This is an ultrasound between 11-14 weeks of . It measures a pocket of fluid near the neck of your developing baby. If this NT area is enlarged, it may be related to a chromosome abnormality, rare genetic condition, heart defect, or other defect. First Trimester Screening (FTS): Offered to all women between 11-14 weeks of . This screening combines the NT evaluation with a blood test (from your arm). It checks two proteins related to . This test screens for two common chromosome conditions. It finds 85% of Down syndrome cases. It finds 80% of trisomy 18 cases. Non-Invasive Testing (NIPT/cell free DNA): Offered to all women any time after 10 weeks ofpregnancy. Recommended if you are over the age of 35 or if you had a affected by a chromosome condition. In , some of the placenta???s DNA travels through your blood. In this bloodtest (from your arm), DNA is measured to check your risk for common chromosome conditions. These include: Down syndrome, trisomy 18, trisomy 13, and sex chromosome abnormalities (like Barrios syndrome). It finds up to 99% of cases for these conditions. It can also tell the sex of your baby (99.4% accurate and earlier than ultrasound). FTS is very often covered by insurance plans, but NIPT might not be covered. Your maximum mae-hi-rfqnwh cost would be $299 if NIPT is not covered. If you would like to check the cost of NIPT based onyour insurance plan, please call the lab. The lab we use is [facility]. Call its billing specialists at [phone]. The name of their NIPT is called ???[id number] Plus.?? Tests for parents (inherited conditions) Carrier screening is done by a blood draw from your arm or a saliva sample. We all carry changes (mutations) in some of our genes. You may not know you carry a genetic condition if you do not have symptoms. If both parents carry a change in the same gene, then their children could be at risk from the genetic condition. Standard Carrier Screening: All women should have carrier screening for Cystic Fibrosis and Spinal Muscular Atrophy. If you test negative, the chance of having a baby with one of these conditions is low, but not zero. If you test positive, you are considered a carrier. In this case, the father of the baby should be tested and further genetic counseling will be provided. If you do not have insurance or if your insurance does not fully cover the cost of standard carrierscreening, the maximum xvf-bq-krrnap cost would be $199. If you would like to check the cost based on your insurance plan, please call the lab. The lab we use is [facility]. Call their billing specialistsat [phone]. Expanded Carrier Screening (ECS): This is an optional test. It checks if you and your partner carrybetween 200-500 genetic conditions. The cost depends on the specific test you choose. If ECS interests you, please call Michelle Vargas at [phone] for more information. The tests listed above are screening tests. This means they detect a chance for an issue. A false positive or false negative is possible with any screening test. A true genetic diagnosis can be confirmed by an amniocentesis or chorionic villus sampling (CVS). More genetic testing can also be done after the baby is born. Still unsure which test to choose? There is no ???right?? answer to this question. Every person is different and every is unique. Some women choose very comprehensive genetic testing. Other women choose only to monitor the by ultrasound. We will support whatever decision you make. Please contact us at the numbers above if you need help deciding which tests to have in the first trimester. Please know that not all defects can be detected in early . Some defects cannot be found until after . You should return in the second trimester - at about 20 weeks of - for full anatomy check of the baby. : Your First Trimester Changes The first trimester is a time of rapid development for your baby. Because your baby is growing so quickly, it is important that you start a healthy lifestyle right away. By the end of the first trimester, your baby has formed all of its major body organs and weighs just over an ounce. Month 1 (weeks 1 to 4) The placenta (the organ that nourishes your baby) begins to form. The brain, spinal cord, heart, gastrointestinal tract, and lungs begin to develop. Your baby is about ?? inch long by the end of the first month. Actual size of baby is 1/4 . Month 2 (weeks 5 to 8) All of your baby???s major body organs form. The face, fingers, toes, ears, and eyes appear. By theend of the month, your baby is about 1 inch long. Actual size of baby is 1 . Month 3 (weeks 9 to 12) Your baby can open and close its fists and mouth. The sexual organs begin to form. As the first trimester ends, your baby is about 3 inches long. Actual size of baby is 3 . Adapting to : First Trimester As your body adjusts during your first trimester of , you may have to change or limit yourdaily activities. You???ll need more rest. You may also need to use the energy you have more wisely. Your changing body Almost every part of your body is affected as you adapt to . The uterus and cervix will start to soften right away. You may not look very during the first 3 months. But you are likely to have some common signs of early : Nausea Fatigue Frequent urination Mood swings Bloating of the belly Constipation Heartburn Missed or light periods (first trimester bleeding) Nipple or breast tenderness and breast swelling It???s not too late to start good habits What matters most is protecting your baby from this moment on. If you smoke, drink alcohol, or use drugs, now is the time to stop. If you need help, talk with your healthcare provider: Smoking increases the risk of stillbirth or having a ffj-pylps-slddwp baby. If you smoke, quit now. Alcohol and drugs have been linked with miscarriage, defects, intellectual disability, and low weight. Don't drink alcohol or take drugs. Tips to relieve nausea During , nausea can happen at any time of the day, but it may be worse in the morning. To help prevent nausea: Eat small, light meals at frequent intervals. Drink fluids often. Get up slowly. Eat a few unsalted crackers before you get out of bed. Avoid smells that bother you. Avoid spicy and fatty foods. Eat an ice pop in your favorite flavor. Get plenty of rest. Ask your healthcare provider about taking indra or vitamin B6 for nausea and vomiting. Talk with your healthcare provider if you take vitamins that upset your stomach. Work concerns The end of the first trimester is a good time to discuss working during with your employer. Follow your healthcare provider???s advice if your job needs you to stand for a long time, work with hazardous tools, or even sit at a desk all day. Your workspace, workload, or scheduled hours mayneed to be adjusted. Perhaps you can change body postures more often or take an extra break. Advice for travel Talk to your healthcare provider first, but the second trimester may be the best time for any travel. You may be advised to avoid certain trips while you???re . Food and water can be concernsin developing countries. Travel by car is a good choice, as you can stop, get out, and stretch. Bring snacks and water along. Fasten the lap belt below your belly, low over your hips. Also be sure to wear the shoulder harness. Intimacy Unless your healthcare provider tells you to, there's no reason to stop having sex while you???re . You or your partner may notice changes in desire. Desire may be less in the first trimesterdue to nausea and fatigue. In the second trimester, sex may be very enjoyable. The third trimester can be a challenge comfort-quintanilla. Try different positions and see what???s best for you both. How daily issues affect your health Many things in your daily life impact your health. This can include transportation, money problems,housing, access to food, and child care team lead. If you can???t get to medical appointments, you may not receive the care you need. When money is tight, it may be difficult to pay for medicines. And living far from a grocery store can make it hard to buy healthy food. If you have concerns in any of these or other areas, talk with your healthcare team. They may know of local resources to assist you. Or they may have a staff person who can help. Nutrition During Having a healthy baby depends mostly on you. What you eat matters to your baby and your health. During , you will likely need about 300 more calories per day than before you became .Each day, try to eat the number of servings listed here for each food group. In addition, cut down on salt and caffeine. Limit the amount of sweets and high-fat foods you eat. Don???t smoke or drink alcohol. Important: See your healthcare provider as often as asked. If you have any questions, be sure to ask them. Fruits Vegetables Grains & Cereals@ Fats & Oils 2 cups Examples of 1-cup servings: 1 medium apple 1 medium orange 1 medium banana 1 cup chopped fruit 1 cup 100% fruit juice (pasteurized) 1/2 cup dried fruit 2-1/2 to 3 cups Examples of 1 servin cups raw, leafy greens 1 cup raw or cooked cut-up vegetables 1 cup 100% vegetable juice (pasteurized) 6 to 8 ounces Examples of 1-ounce servings: 1 slice bread 1/2 cup cooked rice 1/2 cup cooked cereal 1/2 cup pasta 1 ounce cold cereal 6 to 8 teaspoons Dairy@@ Protein@@@ Fluids 3 cups Examples of 1-cup servings: 1 cup milk 1 cup yogurt 1-1/2 ounces natural cheese 2 ounces processed cheese 5 to 6-1/2 ounces Examples of 1-ounce servings: 1 egg 1 ounce of lean meat, poultry, or fish 1/4 cup cooked beans 1 tablespoon peanut butter 1/2 ounce nuts 8 or more 8-ounce glasses Examples: Water Mineral water Clear soups, broth @Note: Choose whole grains whenever possible. @@ Note: Try to choose low-fat foods; stay away from soft cheeses and unpasteurized milk. @@@ Notes: Don't eat raw or undercooked meats, eggs, seafood, fish, or shellfish. Some types of fish, such as shark, swordfish, and victor m mackerel, should not be eaten during . Don't eat hot dogs, lunch meats, or cold cuts unless heated to steaming just before being served. Ask your healthcare provider about safe choices. supplements A supplement is a pill that you take daily during . It helps make sure you???re getting the right amount of certain nutrients that are important to your baby. Ask your healthcare provider to help you choose the best one for you. Important nutrients during include: Folic acid. It's best to start taking this supplement 1 month before you start trying to get . Folic acid helps prevent certain problems in your baby. During , you need to take 400 micrograms (mcg) of folic acid every day for the first 2 to 3 months after conception. After that, 600 mcg is needed for a growing baby and placenta. Iron, calcium, and vitamin D. You may also be advised to take these supplements during . They help keep you and your baby healthy. Take them at different times because calcium makes it hard for the body to absorb iron. Taking iron with orange juice helps to increase its absorption. Healthy Eating Habits During It???s important to develop healthy eating habits while you are , for you as well as for your baby. Here are some ways to stay healthy. Aim for a healthy weight A slow, steady rate of weight gain is often best. After the first trimester, you may gain about a pound a week. If you were overweight before , you need to gain fewer pounds. Your healthcareprovider can give you a healthy weight goal for your . Don???t diet Now is not the time to diet. You may not get enough of the nutrients you and your baby need. Instead, learn how to be a healthy eater. Start by doing it for your baby. Soon, you may do it for yourself. Vitamins and supplements Talk with your healthcare provider about taking these and other vitamins and supplements. Iron makes the extra blood you need now. Calcium and vitamin D help build and keep strong bones. Folic acid helps prevent certain defects. Iodine helps the thyroid work right. Some vitamins may not be safe to take. Your healthcare provider will tell you which ones to avoid. Fluids Drink at least 8 to 10 cups of fluid daily. Your baby needs fluids. Fluids also decrease constipation, flush out toxins and waste, limit swelling, and help prevent bladder infections. Water is best. Other good choices are: Water or seltzer water with a slice of lemon or chuloonawick. (These can also help ease an upset stomach.) Clear soups that are low in salt Low-fat or fat-free milk, soy or rice milk with calcium added Ice pops or gelatin Things to avoid Some things might harm your growing baby. Don???t eat or drink: Alcohol Unpasteurized dairy foods and juices Raw or undercooked meat, poultry, fish, or eggs Unwashed fruits and vegetables Prepared meats, like deli meats or hot dogs, unless heated until steaming hot Fish that are high in mercury, like shark, swordfish, victor m mackerel, tilefish, and albacore tuna Things to limit Ask your healthcare provider whether it???s safe to eat or drink: Caffeine Artificial sweeteners Organ meats Certain types of fish Fish and shellfish that contain mercury in lower amounts, like shrimp, canned light tuna, salmon, pollock, and catfish Healthy Eating Habits During It???s important to develop healthy eating habits while you are , for you as well as for your baby. Here are some ways to stay healthy. Aim for a healthy weight A slow, steady rate of weight gain is often best. After the first trimester, you may gain about a pound a week. If you were overweight before , you need to gain fewer pounds. Your healthcareprovider can give you a healthy weight goal for your . Don???t diet Now is not the time to diet. You may not get enough of the nutrients you and your baby need. Instead, learn how to be a healthy eater. Start by doing it for your baby. Soon, you may do it for yourself. Vitamins and supplements Talk with your healthcare provider about taking these and other vitamins and supplements. Iron makes the extra blood you need now. Calcium and vitamin D help build and keep strong bones. Folic acid helps prevent certain defects. Iodine helps the thyroid work right. Some vitamins may not be safe to take. Your healthcare provider will tell you which ones to avoid. Fluids Drink at least 8 to 10 cups of fluid daily. Your baby needs fluids. Fluids also decrease constipation, flush out toxins and waste, limit swelling, and help prevent bladder infections. Water is best. Other good choices are: Water or seltzer water with a slice of lemon or chuloonawick. (These can also help ease an upset stomach.) Clear soups that are low in salt Low-fat or fat-free milk, soy or rice milk with calcium added Ice pops or gelatin Things to avoid Some things might harm your growing baby. Don???t eat or drink: Alcohol Unpasteurized dairy foods and juices Raw or undercooked meat, poultry, fish, or eggs Unwashed fruits and vegetables Prepared meats, like deli meats or hot dogs, unless heated until steaming hot Fish that are high in mercury, like shark, swordfish, victor m mackerel, tilefish, and albacore tuna Things to limit Ask your healthcare provider whether it???s safe to eat or drink: Caffeine Artificial sweeteners Organ meats Certain types of fish Fish and shellfish that contain mercury in lower amounts, like shrimp, canned light tuna, salmon, pollock, and catfish : Common Questions There are plenty of myths and ???old wives??? tales?? about . You may need help fact from fiction. On this sheet, you???ll find answers to a few common questions. If you have other questions, talk with your healthcare provider. Will working harm my baby? In most cases, working throughout your is not harmful at all. There may be concerns if the job involves dangerous machinery or chemicals, lifting, or standing for very long periods of time.Talk with your healthcare provider and employer about your particular job and . Is it safe to have sex during ? Yes, unless you are specifically advised not to by your healthcare provider. Why can???t I change the cat litter box? Cats carry a disease called toxoplasmosis. In adult humans, it shows up as a mild infection of the blood and organs. If you are infected during , the baby???s brain and eyes could be damaged. To be safe, have someone else change the litter. If you must handle it, wear a paper mask over your nose and mouth. Also, wear gloves and wash your hands afterward. Which medicines are safe? No prescription or dcph-qph-gkdjcko medicine is safe for everyone all of the time. But sometimes medicines are needed. Be sure your healthcare provider knows you are . Then use only the medicines they advise you to take. Is it true that I can overheat my baby? Yes. To prevent making your baby too warm: Don???t sit in a Jacuzzi. A long, warm bath is fine, but not in water over 100??F (37.7??C). Exercise less intensely if you feel tired. Base your workout on how you feel, not on your heart rate. Heart rates aren???t a good way to measure effort during . Can I lift and carry safely? Yes, if your healthcare provider doesn???t tell you otherwise. Learn to lift and carry safely to prevent injury and reduce back pain during . To protect your back: Bend at the knees to bring the load nearer. Get a good film recordist. Test the weight of the load. Tighten your belly. Exhale as you lift. Lift with your legs, not with your back. Carry the load close to your body. Hold the load so you can see where you are going. What if I get sick? Most people get sick at least once during . Talk with your healthcare provider if you do. Most likely it will not affect your . Get plenty of rest and fluids and eat what you can. Talk with your provider before taking any medicines. : More Common Questions On this sheet, you???ll find answers to some common questions about . If you have other questions, talk with your healthcare provider. Will traveling be too stressful? Not if you set the pace. When you plan a trip, allow time to stop and rest. You may even want to delay travel until the second trimester, when your body is more adjusted to . Don???t wait aslong as the third trimester, because of the possibility of going into early labor. Travel to a place where healthcare facilities are close by. You may want to take a copy of your records with you in case you need medical care when you are traveling. Can I still be a vegetarian or vegan? Yes. Be sure to consult a registered dietitian. And be sure to get enough of the following: Protein. Eat eggs and milk if you???re an ovo-lacto vegetarian. If you're a vegan, eat plant-based proteins, such as tofu and beans. (Vegans don't eat meat or any products that come from animals, such as milk, eggs, and cheese.) Calcium. If you don???t eat dairy, try soy milk, soy cheese fortified with calcium, and orange juice fortified with calcium. Vitamin B-12. You may need to take a supplement that includes folic acid. Vitamin D. If you don???t drink milk, ask about taking a supplement. Iron. Your healthcare provider may advise a supplement. Can I paint my nails? Yes. Nail sammarinese is not thought to be dangerous during . Just be careful about breathing the fumes. Keep windows open or use a fan. However, long-term exposure to the solvents used to removenail sammarinese may not be safe. If you work in a nail salon, talk with your healthcare provider about safety concerns. Should I eat more if I exercise? You will only need an extra 100 calories for each 30 minutes of mild exercise. But you???ll also need more fluids. Drink at least an extra 8 ounces of water. Do I have to stop jogging? You can jog as long as you are comfortable. Many people find the impact or bounce of a jogdoesn???t feel good. Some switch to brisk walking as their advances. What should I limit or not eat or drink? Don't drink unpasteurized milk products or juices. Don't eat raw or undercooked meat, poultry, fish, or eggs. Don't eat prepared meats, like hot dogs or deli meat, unless served steaming hot. Don't drink alcohol. Limit caffeine unless your healthcare provider tells you otherwise. Can I lift weights? If you have been lifting weights, there is no need to stop. Instead, keep the weights light and in control. Never hold your breath. If you haven???t been lifting weights, don???t start now. Ultrasound Ultrasound is a common procedure. It's used to confirm your due date or check your baby???s health. It's used even in low-risk pregnancies. But if there are any concerns that your baby may be at risk, ultrasound can also help. It can give your healthcare provider the information they need.This helps to make sure that you and your baby get the best possible care. Using sound waves to see your baby During ultrasound, high-frequency sound waves pass through your body and your baby. Some of those sound waves reflect off your baby. They then return to a handheld device (transducer.) This device sends the information back to the ultrasound machine. A visual image is then created on a screen. During ultrasound of the stomach While you lie down on the exam table, a layer of gel or oil is put on your stomach. This helps the sound waves more easily reach your baby. Then the transducer is slowly moved back and forth over your stomach. The procedure is painless for baby and mother. It usually takes from about 10 minutes up to about an hour. During vaginal ultrasound The transducer is covered with a condom or other sterile latex or nonlatex shield. Then it's inserted, like a tampon, into your vagina. You should have little discomfort during the test. It often takes less than 30 minutes. The Benefits of gives your new baby the very best start. It supplies food, comfort, and love. Expertsagree: is the healthiest choice for babies during the first year of life and beyond. It???s healthy for Mom, too. may be challenging at first. But you and your baby can succeed together. Healthiest for baby Breastmilk is the ideal food for babies. It has all the nutrients your little one needs to grow healthy and strong. Here are some of the many benefits for your baby: provides contact that babies love. Frequent loug-vh-wxat time with Mom is calming andcomforting. Breastmilk is full of your antibodies. These are substances that help your baby fight infection. reduces your baby???s risk of ear infections, allergies, colds, childhood obesity, and risk of SIDS (sudden infant syndrome). gives your baby lifelong protection against some diseases, such as asthma, diabetes, inflammatory bowel disease, and some cancers. Formula does not provide any protection. Breastmilk changes as your baby grows, meeting her changing needs. Breastmilk is easy for your baby to digest. Your baby???s digestive system cannot digest other foods until at least 6 months of age. Breastmilk contains DHA, a fat that is good for your baby???s developing brain and eyes. Healthiest for mom For many women, is an amazing experience. It creates a strong mckeon between mother andbaby. Other benefits for Mom include: You can feel proud knowing that your baby is growing healthy and strong because of your milk. jaime calories. This can help you lose weight faster. releases hormones that contract the uterus. This helps the uterus return to its normal size after childbirth. Mothers who breastfeed have a decreased risk of ovarian and breast cancers. They also have a decreased rate of diabetes, osteoporosis, and depression. A senior information security consultant is a healthcare provider specially trained to help moms. Your nurse, print and pattern designer, terra cotta roofer helper, or family practice doctor can also help you learn about . Important OB Phone Numbers If you have any questions or concerns or think you may need to be seen by a doctor, call the officein which you have been seen during normal business hours, Friday through Friday. If you have a question after 4:30 p.m., on a weekend, or holiday that cannot wait until the following day, you may call the Birthing Center (Triage) and ask to speak with a nurse. The Birthing Center (Triage) [facility] [address] [place] [address] [facility]ne[facility] Medical Office Building [address] [facility] [address], [address] [place] [address] [facility] [address] [place] [address] Family Practice [address], Third Floor [address] [place] [address] [facility] [address] [facility] [address] [place] [address] [facility] Obstetrics & Gynecology [place] [address] [place] [address] [facility] Obstetrics & Gynecology [place] [address] [place] [address] * Progress Notes - Yifan Grimm MD - 10/20/2024 1:00 PM EDT Initial Note Subjective New OB Appointment HPI: 24 yo at 9 6/7 by LMP. She had at 35 wks due to IUGR (per her description), delivered at [facility]. She had TSVD x 1 and SAB x 1. She has h/o Bipolar DO, currently doing well on no medications. She sees a psychiatrist in [place], [place]. Per chart she has h/o L3/L4 spine surgery - will get more details at next appointment. BSUS today shows intrauterine gestational sac with yolk sac and possible pole. Discussed scheduling viability U/S in the next 1-2 wks. OB History Para Term AB Living 4 2 1 1 1 1 SAB IAB Ectopic Multiple Live Births 1 0 0 0 1 # Outcome Date GA Lbr Andrew/2nd Weight Sex Type Anes PTL Lv 4 Current 3 Term 07/06/24 39w0d 3430 g M Vag-Spont 2 SAB 09/2023 1 02/19/18 3033 g F Vag-Spont MICKI Obstetric Comments Due 07/11/24 [place] Depression Scale Total: 0 [employer] Collision Estimator Last pap 06/2024 - NL. No prior abnormal paps. Treated for chlamydia in the past. No other prior STIs. Past Medical History She has a past medical history of Anxiety, Bipolar 1 disorder ([facility]), Depression, Fractures (03/31/23), and PTSD (post-traumatic stress disorder). Past Surgical History She has a past surgical history that includes Spine surgery (N/A, 04/01/2023); Tonsillectomy (N/A);arm surgery (Left, 03/31/2023); and Other surgical history (03/31/24). Social History She reports that she has quit smoking. Her smoking use included cigarettes. She has been exposed totobacco smoke. She has never used smokeless tobacco. She reports that she does not currently use drugs after having used the following drugs: Marijuana. Frequency: 1.00 time per week. She reports that she does not drink alcohol. Currently vapes - discussed possible risks in and encouraged cessation. Family History Her family history includes Diabetes in her father's sister. No BD/MD Allergies She has no known allergies. Current Medications She has a current medication list which includes the following prescription(s): vit-fe fumarate-fa, methocarbamol, oxycodone, senna-docusate sodium, senna-docusate sodium, and ventolin hfa. Review of Systems Objective Physical Exam Visit Vitals BP 120/71 (BP Location: Right arm, Patient Position: Sitting) Pulse 73 Pregravid weight: Pregravid weight not on file Pregravid BMI: Could not be calculated Body mass index is 27.78 kg/m??. See encounter summary and flowsheet for exam details. Assessment/Plan 24 yo at 9 6/7 by LMP 1. Care - labs sent. Will schedule viability U/S in next 1-2 wks. Need to discussif she has 2 living children at next appointment. Need to get details on prior spine surgery. 2. Bipolar DO - Reports doing well on no medications. Assessment & Plan 9 weeks gestation of Orders: Type and Screen CBC and differential Hepatitis B surface antigen Hepatitis C antibody; Future HIV 1 & 2 Antibody/Antigen Screen w/Reflex to HIV 1/2 Differentiation; Future Rubella antibody, IgG Treponema Pallidum (Syphilis) Antibodies with Reflex to RPR and RPR Titer (Those with NO known Syphilis); Future Urine culture Rapid drug screen, urine Neisseria gonorrhea DNA by PCR Chlamydia trachomatis by PCR OB US < 14 Weeks Early; Future documented in this encounter Plan of Treatment Upcoming Encounters Date Type Department Care Team (Late st Contact Info) Description 11/23/2024 10:00 AM EDT Routine Medical Office Building Obstetrics and Gynecology [address] [facility] [facility], [address] [place] [address] Parul Hall, LEIDY [address] [facility] [facility] [address] [place] [phone] 12/24/2024 12:00 PM EDT Office Visit Medical Office Building Surgery Spine & Joint [address] [facility] [facility], [address] [place] [address] Manoj Maza PA [address] [facility] [place] [facility] [address] [place] [address] Scheduled Orders Name Type Priority Associated Diagnoses Orde r Schedule OB US < 14 Weeks Early Imaging Routine 9 weeks gestation of Expected: 11/20/2024 (Approximate), Expires: 12/20/2024 documented as of this encounter Procedures Procedure Name Priority Date/Time Associated Diagnosis Comments RUBELLA ANTIBODY IGG Routine 10/20/2024 1:55 PM EDT 9 weeks gestation of HEPATITIS B SURFACE ANTIGEN Routine 10/20/2024 1:55 PM EDT 9 weeks gestation of CBC WITH AUTO DIFFERENTIAL Routine 10/20/2024 1:55 PM EDT 9 weeks gestation of TYPE AND SCREEN Routine 10/20/2024 1:55 PM EDT 9 weeks gestation of CHLAMYDIA TRACHOMATIS DNA BY PCR Routine 10/20/2024 1:31 PM EDT 9 weeks gestation of DRUG ABUSE SCREEN, URINE Routine 10/20/2024 1:31 PM EDT 9 weeks gestation of NEISSERIA GONORRHEA DNA BY PCR Routine 10/20/2024 1:31 PM EDT 9 weeks gestation of URINE CULTURE Routine 10/20/2024 1:31 PM EDT 9 weeks gestation of documented in this encounter Results * Treponema Pallidum (Syphilis) Antibodies with Reflex to RPR and RPR Titer (Those with NO known Syphilis) (10/20/2024 1:55 PM EDT) Syphilis Antibody (IgG+IgM) Nonreactive Nonreactive 10/20/2024 6:44 PM EDT [facility] Comment:Nonreactive. No sero logic evidence of syphilis. No follow-up necessary unless clinically indicated (e.g., early syphilis). Blood Venous blood specimen / Unknown Venipuncture / Unknown 10/20/2024 1:55 PM EDT 10/20/2024 1:56 PM EDT us Yifan Grimm MD LAB BLOOD ORDERABLES Final Re sult [facility] [address] [place] [address] * (ABNORMAL) Rubella antibody, IgG (10/20/2024 1:55 PM EDT) Rubella Antibody IgG Positive(A ) Negative 10/20/2024 7:19 PM EDT [facility] Comment: Rubella IgG Result Interpretation: Negative: No IgG antibody specific to the rubella virus detected. Patient is presumed not to have had a previous exposure to rubella through infection or vaccination. Equivocal: Serologic status cannot be determined. Repeat testing in 10-14 days may be helpful. Positive: IgG antibody specific to rubella detected. IgG antibody levels are at a level considered to indicate positive immunity through infection or vaccination. Blood Venous blood specimen / Unknown Venipuncture / Unknown 10/20/2024 1:55 PM EDT 10/20/2024 1:56 PM EDT us Yifan Grimm MD LAB BLOOD ORDERABLES Final Re sult Performing Organization Address [facility] de Phone Number [facility] [address] [place] [address] * Hepatitis C antibody (10/20/2024 1:55 PM EDT) Pathologist [facility] Hepatitis C Antibody Negative Negative 10/20/2024 6:12 PM EDT [facility] Blood Venous blood specimen / Unknown Venipuncture / Unknown 10/20/2024 1:55 PM EDT 10/20/2024 1:56 PM EDT us Yifan Grimm MD LAB BLOOD ORDERABLES Final Re sult [facility] [address] [place] [address] * Hepatitis B surface antigen (10/20/2024 1:55 PM EDT) Hepatitis B Surf Antigen Negative Negative 10/20/2024 6:44 PM EDT [facility] Blood Venous blood specimen / Unknown Venipuncture / Unknown 10/20/2024 1:55 PM EDT 10/20/2024 1:56 PM EDT us Yifan Grimm MD LAB BLOOD ORDERABLES Final Re sult [facility] [address] [place] [address] * CBC and differential (10/20/2024 1:55 PM EDT) WBC Count 6.87 3.70 - 10.30 10*3/uL LAB HEMATOLOGY METHOD 10/20/2024 3:04 PM EDT [facility] RBC Count 4.61 3.90 - 5.20 10*6/uL LAB HEMATOLOGY METHOD 10/20/2024 3:04 PM EDT [facility] HGB 12.6 11.2 - 15.7 g/dL LAB HEMATOLOGY METHOD 10/20/2024 3:04 PM EDT [facility] HCT 38.4 34.0 - 45.0 % LAB HEMATOLOGY METHOD 10/20/2024 3:04 PM EDT [facility] Platelet Count 247 155 - 369 10*3/uL LAB HEMATOLOGY METHOD 10/20/2024 3:04 PM EDT [facility] MCV 83 79 - 98 fL LAB HEMATOLOGY METHOD 10/20/2024 3:04 PM EDT [facility] MCH 27.3 26.0 - 32.0 pg LAB HEMATOLOGY METHOD 10/20/2024 3:04 PM EDT [facility] MCHC 32.8 30.7 - 35.5 g/dL LAB HEMATOLOGY METHOD 10/20/2024 3:04 PM EDT [facility] RDW 13.4 11.5 - 14.5 % LAB HEMATOLOGY METHOD 10/20/2024 3:04 PM EDT [facility] MPV 10.2 8.8 - 12.5 fL LAB HEMATOLOGY METHOD 10/20/2024 3:04 PM EDT [facility] nRBC 0.0 <=0.0 per 100 WBCs LAB HEMATOLOGY METHOD 10/20/2024 3:04 PM EDT [facility] Differential Type Automated LAB HEMATOLOGY METHOD 10/20/2024 3:04 PM EDT [facility] Neutrophils % 57 % LAB HEMATOLOGY METHOD 10/20/2024 3:04 PM EDT [facility] Lymphocytes % 31 % LAB HEMATOLOGY METHOD 10/20/2024 3:04 PM EDT [facility] Monocytes % 8 % LAB HEMATOLOGY METHOD 10/20/2024 3:04 PM EDT [facility] Eosinophils % 2 % LAB HEMATOLOGY METHOD 10/20/2024 3:04 PM EDT [facility] Basophils % 1 % LAB HEMATOLOGY METHOD 10/20/2024 3:04 PM EDT [facility] Immature Granulocytes % 1 % LAB HEMATOLOGY METHOD 10/20/2024 3:04 PM EDT [facility] Neutrophils Absolute 3.96 1.60 - 6.10 10*3/uL LAB HEMATOLOGY METHOD 10/20/2024 3:04 PM EDT [facility] Lymphocytes Absolute 2.13 1.20 - 3.90 10*3/uL LAB HEMATOLOGY METHOD 10/20/2024 3:04 PM EDT [facility] Monocytes Absolute 0.57 0.30 - 0.90 10*3/uL LAB HEMATOLOGY METHOD 10/20/2024 3:04 PM EDT [facility] Eosinophils Absolute 0.11 0.00 - 0.50 10*3/uL LAB HEMATOLOGY METHOD 10/20/2024 3:04 PM EDT [facility] Basophils Absolute 0.06 0.00 - 0.10 10*3/uL LAB HEMATOLOGY METHOD 10/20/2024 3:04 PM EDT [facility] Immature Granulocytes Absolute 0.04 0.00 - 0.06 10*3/uL LAB HEMATOLOGY METHOD 10/20/2024 3:04 PM EDT [facility] Blood Venous blood specimen / Unknown Venipuncture / Unknown 10/20/2024 1:55 PM EDT 10/20/2024 1:56 PM EDT [facility] - 10/20/2024 3:04 PM EDT Therapeutic decision making should be based on absolute values, rather than percentages. us Yifan Grimm MD LAB BLOOD ORDERABLES Final Re sult [facility] [address] [place] [address] * Type and Screen (10/20/2024 1:55 PM EDT) ABO/Rh B Positive 10/19/2024 8:00 PM EDT BLOOD BANK Antibody Screen Negative 10/19/2024 8:00 PM EDT BLO[facility] B[facility] Specimen Expiration 10/23/2024 23:59 10/19/2024 8:00 PM EDT [facility]LO[facility] Blood Venous blood specimen / Unknown Venipuncture / Unknown 10/20/2024 1:55 PM EDT 10/20/2024 1:56 PM EDT Yifan Grimm MD LAB BLOOD BANK TEST ORDERABLE S Final Result Performing Organization Address City/[facility]/ZIP Co de Phone Number BLOOD BANK [address] [place] [address], * Chlamydia trachomatis by PCR (10/20/2024 1:31 PM EDT) Chlamydia trachomatis DNA PCR Result Not Detected Not Detected 10/21/2024 2:50 PM EDT [facility] Urine Urine specimen obtained by clean catch procedure / Unknown Non-blood Collection / Unknown 10/20/2024 1:31 PM EDT 10/20/2024 1:31 PM EDT Narrative [facility] - 10/21/2024 2:50 PM EDT This test is performed by the [employer] instrument for Real Time PCR C. trachomatis and N. gonorrhea. This test is FDA approved for use with endocervical, vaginal, and urine specimens. This test is used for clinical purposes. It should not be regarded as invesigational or for research. The [facility] Clinical Microbiology Laboratory is certified under the Clinical Laboratory Improvement Amendments of 1988 (CLIA-88) as qualified to perform high complexity clinical laboratory testing. Yifan Grimm MD LAB MICROBIOLOGY - GENERAL OR DERABLES Final Result Performing Organization Address City/[facility]/ZIP Co de Phone Number [facility] [address] [place] [address] * Neisseria gonorrhea DNA by PCR (10/20/2024 1:31 PM EDT) Neisseria gonorrhea DNA PCR Result Not Detected Not Detected. 10/21/2024 2:50 PM EDT [facility] Urine Urine specimen obtained by clean catch procedure / Unknown Non-blood Collection / Unknown 10/20/2024 1:31 PM EDT 10/20/2024 1:31 PM EDT Narrative [facility] - 10/21/2024 2:50 PM EDT This test is performed by the [employer] m2000 instrument for Real Time PCR C. trachomatis and N. gonorrhea. This test is FDA approved for use with endocervical, vaginal, and urine specimens. This test is used for clinical purposes. It should not be regarded as invesigational or for research. The [facility] Microbiology Laboratory is certified under the Clinical Laboratory Improvement Amendments of 1988 (CLIA-88) as qualified to perform high complexity clinical laboratory testing. us Yifan Grimm MD LAB MICROBIOLOGY - GENERAL OR DERABLES Final Result [facility] [address] [place] [address] * Rapid drug screen, urine (10/20/2024 1:31 PM EDT) Amphetamine Screen Urine Negative Cutoff: 500 ng/mL 10/20/2024 5:51 PM EDT [facility] Benzodiazepines Screen Urine Negative Cutoff: 200 ng/mL 10/20/2024 5:51 PM EDT [facility] Cannabinoid Screen Urine Negative Cutoff: 50 ng/mL 10/20/2024 5:51 PM EDT [facility] Cocaine Screen Urine Negative Cutoff: 300 ng/mL 10/20/2024 5:51 PM EDT [facility] Barbiturate Screen Urine Negative Cutoff: 200 ng/mL 10/20/2024 5:51 PM EDT [facility] Opiate Screen Urine Negative Cutoff: 300 ng/mL 10/20/2024 5:51 PM EDT [facility] Methadone Screen Urine Negative Cutoff: 300 ng/mL 10/20/2024 5:51 PM EDT [facility] Buprenorphine Screen Urine Negative Cutoff: 10 ng/mL 10/20/2024 5:51 PM EDT [facility] Fentanyl Screen Urine Negative Cutoff: 1 ng/mL 10/20/2024 5:51 PM EDT [facility] Oxycodone Screen Urine Negative Cutoff: 100 ng/mL 10/20/2024 5:51 PM EDT [facility] Urine Urine specimen obtained by clean catch procedure / Unknown Non-blood Collection / Unknown 10/20/2024 1:31 PM EDT 10/20/2024 1:31 PM EDT Yifan Grimm MD LAB URINE ORDERABLES Final Re sult Performing Organization Address City/[facility]/ZIP Co de Phone Number [facility] [address] [place] [address] * Urine culture (10/20/2024 1:31 PM EDT) Culture 10,000 - 100,000 CFU/mL Mixed urogenital, fecal, or skin gisella present. 10/22/2024 11:48 AM EDT [facility] Urine Urine specimen obtained by clean catch procedure / Unknown Non-blood Collection / Unknown 10/20/2024 1:31 PM EDT 10/20/2024 1:31 PM EDT Yifan Grimm MD LAB MICROBIOLOGY - GENERAL OR DERABLES Final Result Performing Organization Address [facility] Co de Phone Number [facility] [address] [place] [address] documented in this encounter Visit Diagnoses Diagnosis 9 weeks gestation of - Primary documented in this encounter Additional Health Concerns Infection Onset Date Last Indicated Resolved Time MRSA 03/31/2023 03/31/2023 Assessment Noted Time PHQ-9 Depression Total Score: 0 04/20/19 25 9:36 AM EST A fall risk assessment has been complete d for the patient 08/24/2024 3:06 PM EDT A Body Mass Index follow-up plan has been documented for the patient 10/26/2024 1:10 PM EDT documented as of this encounter Care Teams Evaporator Supervisor Relationship Specialty Start Date End Date Azucena Huerta APRN [address] [place] [id number] PCP - General 04/14/23 documented as of this encounter
--- OUTSIDE RECORDS SUMMARY | 2024-11-22 13:06 | XMS_ITS | Referral Summary ---
Author Organization [employer] ([place], [place], [place], [place]) Address [address] [place] [address] Care Team Providers Care Care Information Associate Name Role Phone [facility] Connection, Find-A-Doc Primary Care Provider Allergies [...] Date Clayton rded Speak language other than Russian at home Not on file 10/04/2023 Want [...] Plan of Treatment Not on file [facility] Care Teams Care Information Associate Relationship Specialty Start Date End Date [facility] Wendy, Find-A-Doc [facility] [place] [address] PCP - General 07/03/24
--- OUTSIDE RECORDS SUMMARY | 2024-11-22 13:06 | XMS_ITS | Encounter Summary ---
Author Organization [facility] Address [address] [place] [address] Care Team Providers Care Technology Administrator Name Role Phone Azucena Huerta APRN Primary Care Provider [phone]- [phone] Encounter Details Date Type Department Care Team (Latest Contact Info) Description 10/20/2024 Travel Social History Tobacco Use Types Packs/Day Years Used Date Smoking Tobacco: Former Cigarettes Passive Smoke Exposure: Past Smokeless Tobacco: Never Comments:Vape Alcohol Use Standard [...] place to sleep or slept in a alf (including now)? No 04/02/2023 PHQ-9 Answer Date Recorded Patient Health Questionnaire-9 Score 0 04/20/2024 [place] Depression Scale Answer Date Recorded [place] Depression Scale Total 0 10/20/2024 The thought [...] as of this encounter Plan of Treatment Upcoming Encounters Date Type Department Care Team (Ana haines Contact Info) Description 11/23/2024 10:00 AM EDT Routine Medical Office Building Obstetrics and Gynecology [address] [facility], [address] [place] [address] Parul Hall, PASSENGER CAR CLEANING SUPERVISOR [address] [place] [address] 12/24/2024 12:00 PM EDT Office Visit Medical Office Building Surgery Spine & Joint [address] [facility], [address] [place] [address] Manoj Maza, PA [address] [place] [address] documented as of this encounter Visit Diagnoses [...] documented as of this encounter Care Teams Technology Administrator Relationship Specialty Start Date End Date Azucena Huerta APRN [address] [place] [address] PCP - General 04/14/23 documented as of this encounter
--- OUTSIDE RECORDS SUMMARY | 2024-11-22 13:06 | XMS_ITS | Encounter Summary ---
Author Organization [facility] Address [address] [place] [address] Care Team Providers Care Ink Jet Operator Name Role Phone Azucena Huerta APRN Primary Care Provider +1- [phone] Encounter Details Date Type Department Care Team (Late st Contact Info) Description 03/31/[address] [facility] [address] [place] [address] Vel Duarte MD [address] [place] [address] Social History Tobacco Use Types [...] place to sleep or slept in a nursing home (including now)? No 04/02/2023 Utilities Answer Date [...] Office Building Obstetrics and Gynecology [address], [address] [place] [address] Parul Hall APRN [address] [place] [address] 12/24/2024 12:00 PM EDT Office Visit Medical Office Building Surgery Spine & Joint [address], [address] [place] [address] Manoj Maza PA [address] [facility] [address] [place] [address] documented as of this encounter Visit Diagnoses Not on filedocumented in this encounter Additional Health Concerns Infection Onset Date Last Indicated Resolved Time MRSA 03/31/2023 03/31/2023 Assessment Noted Time A Body Mass Index follow-up plan has been documented for the patient 04/04/2023 11:57 AM EST documented as of this encounter Care Teams Ink Jet Operator Relationship Specialty Start Date End Date Azucena Huerta APRN [address] [place], [place] [id number] PCP - General 04/14/23 documented as of this encounter
--- OUTSIDE RECORDS SUMMARY | 2024-11-22 13:06 | XMS_ITS | Encounter Summary ---
Author Organization [employer] ([place], [place], [place], [place]) Address [address] [place] [address] Care Team Providers Care Divisional Human Resources Director Name Role Phone [facility] Connection, Find-A-Doc Primary Care Provider Encounter Details Date Type Department Care Team (Late st Contact Info) Description 07/03/2024 Hospital Encounter [facility] Labor & Delivery Unit [address] [place] [address] Macho Landis MD [address] [place] [address] Social History Tobacco Use Types Packs/Day Years [...] on filedocumented in this encounter Care Teams Divisional Human Resources Director Relationship Specialty Start Date End Date [facility] Wendy, Find-A-Doc [facility] Wendy Find-a-Doc [place], [place] [id number] PCP - General 07/03/24 documented as of this encounter
--- OUTSIDE RECORDS SUMMARY | 2024-11-22 13:06 | XMS_ITS | Clinical Summary ---
Author Organization [facility] Address [address] [place] [address] Care Team Providers Care Asl Interpreter Name Role Phone zAucena Huerta APRN Primary Care Provider [phone] Allergies No known active allergies Medications Vit-Fe Fumarate-FA ( VITAMIN PO) Take by mouth. Active Ventolin HFA 108 (90 Base) MCG/ACT inhaler 5 10/27/19 25 Discontinue d(Per Patient Report) methocarbamol (Robaxin) 500 MG tablet Take 1 tablet by mouth 4 times a day. 90 tablet 1 5 10/27/19 25 Discontinue d(Per Patient Report) senna-docusate sodium (Senokot-S) 8.6-50 MG tablet Take 1 tablet by mouth 2 times a day. 28 tablet 5 10/27/19 25 Discontinue d(Per Patient Report) senna-docusate sodium (Senokot-S) 8.6-50 MG tablet Take 1 tablet by mouth 2 times a day. 28 tablet 5 10/27/19 25 Discontinue d(Per Patient Report) oxyCODONE (Roxicodone) 5 MG immediate release tablet Take 1 tablet by mouth every 6 hours as needed for moderate pain. 30 tablet 5 10/27/19 25 Discontinue d(Per Patient Report) Active Problems Problem Noted Date Diagnosed Date [...] Follow up: Isamar Martins on 04/17 at [facility] First Floor, Wing C, Room [address] [address] Call [phone] Call [phone] Closed fracture of right orbital floor, initial [...] with ortho spine Bruising 07/12/2015 Depression 07/12/2015 Estimated Date of Delivery Comme nts Yes 05/19/2025 Based on last me nstrual period of 08/12/2024, not preg shielded Encounters Date Type Department Care Team Description 10/20/2024 1:00 PM EDT Initial Medical Office Building Obstetrics and Gynecology [address], [address] [place] [address] Yifan Grimm MD [place]: [id number] 10/20/2024 Travel 10/15/2024 Telephone Medical Office Building Obstetrics and Gynecology [address], [address] [place] [address] None, None HCN - Patient Message 09/14/2024 Telephone Medical Office Building Surgery Spine & Joint [address], [address] [place] [address] Adolfo Smith MD HCN - Patient Message 09/13/2024 7:30 AM EDT - 09/13/2024 9:35 AM EDT Surgery [facility] [address] [place] [address] Orlin Claros MD REMOVAL, HARDWARE [[id number] (CPT )] 09/13/2024 7:26 AM EDT Anesthesia Event [facility] [address] [place] [address] Juan Pablo Baker MD Knopp, Brandon W, MD 09/13/2024 5:50 AM EDT - 09/13/2024 10:10 AM EDT Hospital Encounter [facility] [address] [place] [address] Orlin Claros MD Discharge Disposition: Home or Self Care 09/13/2024 Orders Only External Location [address] [place] [address] Provider, External 09/13/2024 Travel 08/27/2024 Orders Only Medical Office Building Surgery Spine & Joint [address] , [address] [place] [address] Manoj Maza PA 08/24/2024 3:09 PM EDT - 08/24/2024 11:59 PM EDT Hospital Encounter [facility] [address], 1st [place] [address] Closed fracture of proximal end of left radius and ulna, initial encounter Discharge Disposition: Home or Self Care 08/24/2024 2:50 PM EDT Office Visit [facility] [address], 1st Floor [address] [place] [address] Orlin Claros MD Pain from implanted hardware, subsequent encounter (Primary Dx) 08/24/2024 Travel from Last 3 Months Immunizations Immunization [...] place to sleep or slept in a snf (including now)? No 04/02/2023 PHQ-9 Answer Date Recorded Patient Health Questionnaire-9 Score 0 04/20/2024 Kill [place] Depression Scale Answer Date Recorded Kill [place] Depression Scale Total 0 10/20/2024 The thought of harming myself has occurred to me . Never 10/20/2024 Utilities Answer Date Recorded In the past 12 months has th e [employer], gas, oil, or water [employer] threatened to shut off services in your [...] Pulse 73 10/20/2024 1:23 PM EDT Temperature 36.4 C (97.5 F) 09/13/2024 9:00 AM EDT Respiratory Rate 23 09/13/2024 9:00 AM EDT Oxygen Saturation 99% 10/20/2024 1:23 PM EDT Inhaled Oxygen Concentration - - Weight 68.9 kg (151 lb 14.4 oz) 10/20/2024 1:23 PM EDT Height 157.5 cm (5' 2 ) 10/20/2024 1:23 PM EDT Body Mass Index 27.78 10/20/2024 1:23 PM EDT Plan of Treatment Upcoming Encounters Date Type Department Care Team (Late st Contact Info) Description 11/23/2024 10:00 AM EDT Routine Medical Office Building Obstetrics and Gynecology [address], [address] [place] [address] Parul Hall, MANAGER LATIN [address] [place] [address] 12/24/2024 12:00 PM EDT Office Visit Medical Office Building Surgery Spine & Joint [address], [address] [place] [address] Manoj Maza, PA [address] [facility] [address] [place] [address] Health Maintenance Due Date Last Done Comments [facility]-Infant/Child/Adol SDOH Screenings 1998 [facility]-Varicella Vaccines (2 of 2 - 2-dose childhood series) 10/28/2002 11/14/1999 [facility]- SDOH Screenings 2016 [facility]-Adult SDOH Screenings 2016 HPV Vaccines (2 - 3-dose series) 11/21/2016 10/24/2016 [facility]-Pap Smear 09/30/2019 [id number] Vaccine ( - season) 2024 [facility]-Influenza Vaccine (#1) 2024 [facility]-RSV Vaccine: 60+ Years or (1 - Risk 1-dose series) 03/24/2025 [facility]-Depression Screening 10/20/2025 025, 04/20/2024, 04/20/2024 [facility]-DTaP,Tdap,and Td Vaccines (10 - Td or [...] to complete this topic [facility]-HIV Screening Completed 10/20/2024, , 03/31/2023, Additional history exists [facility]-Hepatitis C Screening Completed 2024, 04/07/2024, 03/31/2023 [facility]-Obesity Intervention Completed 025, 08/24/2024, 08/20/2024, Additional history exists [facility]-Pneumococcal Vaccine: Pediatrics (0 to 5 Years) and At-Risk Patients (6 to 49 Years) Aged Out No longer eligible based on patient's age to complete this topic [facility]-Rotavirus Vaccines Aged Out No lo nger eligible based on patient's age to complete this topic Medical Devices Implanted Type Area Scrap Carrier Device Identifier Shelf Expiration Date Model / Serial / Lot Screw 2.4mm Cortex T8 Star Selftap 10mm - [id number] Implanted:Qty: 2 on 03/31/2023 by Orlin Claros MD at [facility]024249 03/31/2024 201.760 / / Screw 2.4mm Cortex T8 Star Selftap 12mm - [id number] Implanted:Qty: 1 on 03/31/2023 by Orlin Claros MD at [id number] 03/31/2024 201.762 / / Plate Dcp 2.7mm 10h Ss - [id number] Implanted:Qty: 2 on 03/31/2023 by Orlin Claros MD at [id number] 03/31/2024 242.220 / / Screw 2.7mm Cortex Selftap 12mm - [id number] Implanted:Qty: 2 on 03/31/2023 by Orlin Claros MD at [id number] 03/31/2024 202.812 / / Screw 2.7mm Cortex Selftap 14mm - [id number] Implanted:Qty: 4 on 03/31/2023 by Orlin Claros MD at [id number] 03/31/2024 202.814 / / Screw 2.7mm Cortex Selftap 16mm - [id number] Implanted:Qty: 6 on 03/31/2023 by Orlin Claros MD at [id number] 03/31/2024 202.816 / / Screw 2.7mm Cortex Selftap 18mm - [id number] Implanted:Qty: 1 on 03/31/2023 by Orlin Claros MD at [facility]902105 03/31/2024 202.818 / / Screw Set 5.5mm Expedium Verse Unitized - [id number] Implanted:Qty: 4 on 04/01/2023 [id number] 04/01/[id number] / / Pre-Lordosed Rocco W/ Line 40mm - [id number] Implanted:Qty: 1 on 04/01/2023 by [id number] 04/01/2024 [id number] / / Pre-Lordosed Rocco W/ Line 45mm - [id number] Implanted:Qty: 1 on 04/01/2023 [id number] 04/01/2023 [id number] / / Chip Bone 20cc - [id number] - [id number] Implanted:Qty: 1 on 04/01/2023 by Adolfo Smith MD at [facility]-416851 11/11/2027 PCAN1/4 / [id number] / [id number] Screw 5.5mm Expedium Verse Fen 6mm X 40mm - [id number] Implanted:Qty: 4 on 04/01/2023 by [facility] -[id number] 04/01/2024 [id number] / / Procedures Procedure Name Priority Date/Time Associated Diagnosis Comments HIV 1/2 ANTIBODY/ANTIGEN SCREEN WITH REFLEX TO HIV I/II DIFFERENTIATION Routine 10/20/2024 1:55 PM EDT 9 weeks gestation of HEPATITIS C ANTIBODY W/REFLEX TO HCV QUANT PCR Routine 10/20/2024 1:55 PM EDT 9 weeks gestation of HIV 1/2 ANTIBODY/ANTIGEN SCREEN W/REFLEX TO HIV 1/2 ANTIBODY DIFFERENTIATION Routine 10/20/2024 1:55 PM EDT 9 weeks gestation of TREPONEMA PALLIDUM (SYPHILIS) ANTIBODIES WITH REFLEX TO RPR AND RPR TITER (THOSE WITH NO KNOWN SYPHILIS) Routine 10/20/2024 1:55 PM EDT 9 weeks gestation of RUBELLA ANTIBODY IGG Routine 10/20/2024 1:55 PM EDT 9 weeks gestation of HEPATITIS B SURFACE ANTIGEN Routine 10/20/2024 1:55 PM EDT 9 weeks gestation of CBC WITH AUTO DIFFERENTIAL Routine 10/20/2024 1:55 PM EDT 9 weeks gestation of TYPE AND SCREEN Routine 10/20/2024 1:55 PM EDT 9 weeks gestation of DRUG ABUSE SCREEN, URINE Routine 10/20/2024 1:31 PM EDT 9 weeks gestation of CHLAMYDIA TRACHOMATIS DNA BY PCR Routine 10/20/2024 1:31 PM EDT 9 weeks gestation of NEISSERIA GONORRHEA DNA BY PCR Routine 10/20/2024 1:31 PM EDT 9 weeks gestation of URINE CULTURE Routine 10/20/2024 1:31 PM EDT 9 weeks gestation of FL LESS THAN 1 HOUR (NON-REPORTABLE) Routine 09/13/2024 8:25 AM EDT PB ANESTHESIA PLACEHOLDER Routine 09/13/2024 7:41 AM EDT [place] AN ELECTIVE ENDOTRACHEAL AIRWAY Routine 09/13/2024 7:41 AM EDT [place] REMOVAL DEEP IMPLANT 09/14/19 7:10 AM EDT Pain from implanted hardware, subsequent encounter POCT , URINE Routine 09/13/2024 7:01 AM EDT PB POINT OF CARE IMAGING PLACEHOLDER Routine 09/13/2024 6:55 AM EDT POC ULTRASOUND 09/13/2024 XR FOREARM LEFT 2 VIEWS Routine 08/25/19 3:14 PM EDT Closed fracture of proximal end of left radius and ulna, initial encounter from Last 3 Months Results * Treponema Pallidum (Syphilis) Antibodies with Reflex to RPR and RPR Titer (Those with NO known Syphilis) (10/20/2024 1:55 PM EDT) [facility] Syphilis Antibody (IgG+IgM) Nonreactive Nonreactive 10/20/2024 6:44 PM EDT [facility] Comment:Nonreactive. No sero logic evidence of syphilis. No follow-up necessary unless clinically indicated (e.g., early syphilis). Blood Venous blood specimen / Unknown Venipuncture / Unknown 10/20/2024 1:55 PM EDT 10/20/2024 1:56 PM EDT us Yifan Grimm MD LAB BLOOD ORDERABLES Final Re sult Performing Organization Address [facility] Co de Phone Number [facility] [address] [place] [address] * HIV 1 & 2 Antibody/Antigen Screen (10/20/2024 1:55 PM EDT) [facility] HIV 1 & 2 Antibody/Antigen Screen Non Reactive Non Reactive 10/20/2024 6:15 PM EDT [facility] Comment:Screening for HIV 1 & 2 antibodies, and P24 antigen is NONREACTIVE. No confirmatory testing is required. Blood Venous blood specimen / Unknown Venipuncture / Unknown 10/20/2024 1:55 PM EDT 10/20/2024 1:56 PM EDT us Yifan Grimm MD LAB BLOOD ORDERABLES Final Re sult Performing Organization Address City/[facility]/ZIP Co de Phone Number [facility] [address] [place] [address] * Hepatitis C antibody (10/20/2024 1:55 PM EDT) [facility] Hepatitis C Antibody Negative Negative 10/20/2024 6:12 PM EDT [facility] Blood Venous blood specimen / Unknown Venipuncture / Unknown 10/20/2024 1:55 PM EDT 10/20/2024 1:56 PM EDT us Yifan Grimm MD LAB BLOOD ORDERABLES Final Re sult [facility] [address] [place] [address] * (ABNORMAL) Rubella antibody, IgG (10/20/2024 1:55 PM EDT) Pathologist [facility] Rubella Antibody IgG Positive(A ) Negative 10/20/2024 7:19 PM EDT [facility] Comment: Rubella IgG Result Interpretation: Negative: No [...] PM EDT Yifan Grimm MD LAB BLOOD ORDERABLES Final Re sult Performing Organization Address City/[facility]/ZIP Co de Phone Number [facility] [address] [place] [address] * Hepatitis B surface antigen (10/20/2024 1:55 PM EDT) [facility] Hepatitis B Surf Antigen Negative Negative 10/20/2024 6:44 PM EDT [facility] Blood Venous blood specimen / Unknown Venipuncture / Unknown 10/20/2024 1:55 PM EDT 10/20/2024 1:56 PM EDT Yifan Grimm MD LAB BLOOD ORDERABLES Final Re sult [facility] [address] [place] [address] * CBC and differential (10/20/2024 1:55 PM EDT) [facility] WBC Count 6.87 3.70 - 10.30 10*3/uL LAB HEMATOLOGY METHOD 10/20/2024 3:04 PM EDT [facility] RBC Count 4.61 3.90 - 5.20 10*6/uL LAB HEMATOLOGY METHOD 10/20/2024 3:04 PM EDT [facility] HGB 12.6 11.2 - 15.7 g/dL LAB HEMATOLOGY METHOD 10/20/2024 3:04 PM EDT [facility] HCT 38.4 34.0 - 45.0 % LAB HEMATOLOGY METHOD 10/20/2024 3:04 PM EDT [facility] Platelet Count 247 155 - 369 10*3/uL LAB HEMATOLOGY METHOD 10/20/2024 3:04 PM EDT [facility] MCV 83 79 - 98 fL LAB HEMATOLOGY METHOD 10/20/2024 3:04 PM EDT [facility] MCH 27.3 26.0 - 32.0 pg LAB HEMATOLOGY METHOD 10/20/2024 3:04 PM EDT [facility] MCHC 32.8 30.7 - 35.5 g/dL LAB HEMATOLOGY METHOD 10/20/2024 3:04 PM EDT [facility] RDW 13.4 11.5 - 14.5 % LAB HEMATOLOGY METHOD 10/20/2024 3:04 PM EDT [facility] MPV 10.2 8.8 - 12.5 fL LAB HEMATOLOGY METHOD 10/20/2024 3:04 PM EDT [facility] nRBC 0.0 <=0.0 per 100 WBCs LAB HEMATOLOGY METHOD 10/20/2024 3:04 PM EDT [facility] Differential Type Automated LAB HEMATOLOGY METHOD 10/20/2024 3:04 PM EDT [facility] Neutrophils % 57 % LAB HEMATOLOGY METHOD 10/20/2024 3:04 PM EDT [facility] Lymphocytes % 31 % LAB HEMATOLOGY METHOD 10/20/2024 3:04 PM EDT [facility] Monocytes % 8 % LAB HEMATOLOGY METHOD 10/20/2024 3:04 PM EDT [facility] Eosinophils % 2 % LAB HEMATOLOGY METHOD 10/20/2024 3:04 PM EDT [facility] Basophils % 1 % LAB HEMATOLOGY METHOD 10/20/2024 3:04 PM EDT [facility] Immature Granulocytes % 1 % LAB HEMATOLOGY METHOD 10/20/2024 3:04 PM EDT [facility] Neutrophils Absolute 3.96 1.60 - 6.10 10*3/uL LAB HEMATOLOGY METHOD 10/20/2024 3:04 PM EDT [facility] Lymphocytes Absolute 2.13 1.20 - 3.90 10*3/uL LAB HEMATOLOGY METHOD 10/20/2024 3:04 PM EDT [facility] Monocytes Absolute 0.57 0.30 - 0.90 10*3/uL LAB HEMATOLOGY METHOD 10/20/2024 3:04 PM EDT [facility] Eosinophils Absolute 0.11 0.00 - 0.50 10*3/uL LAB HEMATOLOGY METHOD 10/20/2024 3:04 PM EDT [facility] Basophils Absolute 0.06 0.00 - 0.10 10*3/uL LAB HEMATOLOGY METHOD 10/20/2024 3:04 PM EDT [facility] Immature Granulocytes Absolute 0.04 0.00 - 0.06 10*3/uL LAB HEMATOLOGY METHOD 10/20/2024 3:04 PM EDT [facility] Blood Venous blood specimen / Unknown Venipuncture / Unknown 10/20/2024 1:55 PM EDT 10/20/2024 1:56 PM EDT Narrative [facility] - 10/20/2024 3:04 PM EDT Therapeutic decision making should be based on absolute values, rather than percentages. Yifan Grimm MD LAB BLOOD ORDERABLES Final Re sult [facility] [address] [place] [address] * Type and Screen (10/20/2024 1:55 PM EDT) [facility] ABO/Rh B Positive 10/19/2024 8:00 PM EDT BLOOD BANK Antibody Screen Negative 10/19/2024 8:00 PM EDT BLOOD BANK Specimen Expiration 10/23/2024 23:59 10/19/2024 8:00 PM EDT BLOOD BANK Blood Venous blood specimen / Unknown Venipuncture / Unknown 10/20/2024 1:55 PM EDT 10/20/2024 1:56 PM EDT Yifan Grimm MD LAB BLOOD BANK TEST ORDERABLE S Final Result BLOOD BANK [address] [place] [address], * Chlamydia trachomatis by PCR (10/20/2024 1:31 PM EDT) Chlamydia trachomatis DNA PCR Result Not Detected Not Detected 10/21/2024 2:50 PM EDT [facility] Urine Urine specimen obtained by clean catch procedure / Unknown Non-blood Collection / Unknown 10/20/2024 1:31 PM EDT 10/20/2024 1:31 PM EDT Narrative [facility] - 10/21/2024 2:50 PM EDT This test is performed by the Watch-Sites instrument for Real Time PCR C. trachomatis and N. gonorrhea. This test is FDA approved for use with endocervical, vaginal, and urine specimens. This test is used for clinical purposes. It should not be regarded as invesigational or for research. The [facility] Clinical [facility] is certified under the Clinical Laboratory Improvement Amendments of 1988 (CLIA-88) as qualified to perform high complexity clinical laboratory testing. Yifan Grimm MD LAB MICROBIOLOGY - GENERAL OR DERABLES Final Result [facility] [address] [place] [address] * Rapid drug screen, urine (10/20/2024 1:31 PM EDT) Pathologist [facility] Amphetamine Screen Urine Negative Cutoff: 500 ng/mL 10/20/2024 5:51 PM EDT [facility] Benzodiazepines Screen Urine Negative Cutoff: 200 ng/mL 10/20/2024 5:51 PM EDT [facility] Cannabinoid Screen Urine Negative Cutoff: 50 ng/mL 10/20/2024 5:51 PM EDT [facility] Cocaine Screen Urine Negative Cutoff: 300 ng/mL 10/20/2024 5:51 PM EDT [facility] Barbiturate Screen Urine Negative Cutoff: 200 ng/mL 10/20/2024 5:51 PM EDT [facility] Opiate Screen Urine Negative Cutoff: 300 ng/mL 10/20/2024 5:51 PM EDT [facility] Methadone Screen Urine Negative Cutoff: 300 ng/mL 10/20/2024 5:51 PM EDT [facility] Buprenorphine Screen Urine Negative Cutoff: 10 ng/mL 10/20/2024 5:51 PM EDT [facility] Fentanyl Screen Urine Negative Cutoff: 1 ng/mL 10/20/2024 5:51 PM EDT [facility] Oxycodone Screen Urine Negative Cutoff: 100 ng/mL 10/20/2024 5:51 PM EDT [facility] Urine Urine specimen obtained by clean catch procedure / Unknown Non-blood Collection / Unknown 10/20/2024 1:31 PM EDT 10/20/2024 1:31 PM EDT Yifan Grimm MD LAB URINE ORDERABLES Final Re sult Performing Organization Address City/[facility]/ZIP Co de Phone Number [facility] [address] [place] [address] * Neisseria gonorrhea DNA by PCR (10/20/2024 1:31 PM EDT) Neisseria gonorrhea DNA PCR Result Not Detected Not Detected. 10/21/2024 2:50 PM EDT [facility] Urine Urine specimen obtained by clean catch procedure / Unknown Non-blood Collection / Unknown 10/20/2024 1:31 PM EDT 10/20/2024 1:31 PM EDT Narrative [facility] - 10/21/2024 2:50 PM EDT This test is performed by the [employer] [id number] instrument for Real Time PCR C. trachomatis and N. gonorrhea. This test is FDA approved for use with endocervical, vaginal, and urine specimens. This test is used for clinical purposes. It should not be regarded as invesigational or for research. The [facility] is certified under the Clinical Laboratory Improvement Amendments of 1988 (CLIA-88) as qualified to perform high complexity clinical laboratory testing. Yifan Grimm MD LAB MICROBIOLOGY - GENERAL OR DERABLES Final Result Performing Organization Address City/[facility]/ZIP Co de Phone Number [facility] [address] [place] [address] * Urine culture (10/20/2024 1:31 PM EDT) Culture 10,000 - 100,000 CFU/mL Mixed urogenital, fecal, or skin gisella present. 10/22/2024 11:48 AM EDT [facility] Urine Urine specimen obtained by clean catch procedure / Unknown Non-blood Collection / Unknown 10/20/2024 1:31 PM EDT 10/20/2024 1:31 PM EDT us Yifan Grimm MD LAB MICROBIOLOGY - GENERAL OR DERABLES Final Result Performing Organization Address City/[facility]/ZIP Co de Phone Number [facility] [address] [place] [address] * FL Less than 1 Hour Intraoperative (09/13/2024 8:25 AM EDT) Narrative IMAGING - 09/13/2024 8:25 AM EDT Images were obtained for surgical purposes. See Orlin Claros's surgical note in the patient's chart for the findings. Orlin Claros MD IMG FLUOROSCOPY PROCEDURES Final Result Performing Organization Address [facility] Co de Phone Number IMAGING * [place] AN ELECTIVE ENDOTRACHEAL AIRWAY, PB ANESTHESIA PLACEHOLDER [...] Negative 09/13/2024 7:07 AM EDT [facility] Mortician Supplies Sales Representative ID Radha Ritchie 09/13/2024 7:07 AM EDT HEALTH[facility]ARE LAB Device ID [id number] 09/13/2024 7:07 AM EDT [facility] Urine Urine specimen obtained by clean catch procedure / Unknown 09/13/2024 7:01 AM EDT 09/13/2024 7:07 AM EDT us Orlin Claros MD LAB POINT OF CARE TEST DOCKED DEVICE UNSOLICITED RESULTS Final Result Performing Organization Address City/State/[facility] Co de Phone Number [facility] [address] [place] [address] * PB POINT OF CARE IMAGING PLACEHOLDER [...] monitoring: continuous pulse ox, heart rate and library monitor Block type: supraclavicular Laterality: left Injection [...] BAEZ IMG XR PROCEDURES Final Resu lt from Last 3 Months Additional Health Concerns Infection Onset Date 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 Yes Care Teams Asl Interpreter Relationship Specialty Start Date End Date Azucena Huerta APRN [address] [place] [id number] PCP - General 04/14/23
--- OUTSIDE RECORDS SUMMARY | 2024-11-22 13:06 | XMS_ITS | Clinical Summary ---
Author Organization [employer] ([place], [place], [place], [place]) Address [address] [place] [address] Care Team Providers Care Orthotist Prosthetist Name Role Phone [facility], Find-A-Doc Primary Care Provider Allergies No [...] Date Clayton rded Speak language other than Tajik at home Not on file 10/04/2023 Want [...] Hepatitis C Screening 2016 Pap Smear 09/30/2019 Tobacco Cessation Counseling and Screening (12+) 10/01/2024 10/02/2023 COVID-19 VACCINE ( - 2023- season) 2024 Influenza Vaccine (#1) 2024 DTAP/TDAP/TD VACCINES (9 - Td or Tdap) 03/31/2033 03/31/2023, 05/21/2018, 05/18/2009, Additional history exists Pneumococcal Vaccine: 0-49 Years Aged Out No longer eligible based on patient's age to complete this topic Insurance [facility] Care Teams Orthotist Prosthetist Relationship Specialty Start Date End Date [facility], Find[facility]A-Doc [facility] [place] [address] PCP - General 07/03/24
--- OUTSIDE RECORDS SUMMARY | 2024-11-22 13:06 | XMS_ITS | Encounter Summary ---
Author Organization [facility] Address [address] [place] [address] Care Team Providers Care Social Welfare Research Worker Name Role Phone Azucena Huerta APRN Primary Care Provider [phone] Reason for Visit * Reason Onset Date Comments HCN - Patient Message 10/15/2024 Encounter Details Date Type Department Care Team ([facility] Contact Info) Description 10/15/2024 Telephone Medical Office Building Obstetrics and Gynecology [address], [address] [place] [address] None, None [address] [place] [address] HCN - Patient Message Social History Tobacco [...] place to sleep or slept in a detention (including now)? No 04/02/2023 PHQ-9 Answer Date Recorded Patient Health Questionnaire-9 Score 0 04/20/2024 Utilities Answer Date Recorded In the past 12 months has th e [employer], gas, oil, or water company threatened to shut off services in your home? No 04/02/2023 Comments No Sex and Gender Information Value Date Recorded Sex Assigned at Female 10/13/2023 9:32 AM EDT Legal Sex Female 5:57 PM EDT Gender Identity Female 10/13/2023 9:32 AM EDT Sexual Orientation Not on file documented as of this encounter Miscellaneous Notes * Telephone Encounter - Dagoberto Jenelle Andrews - 10/15/2024 4:20 PM EDT Clinical Concern/Question Reason for Call: pt is calling back about scheduling an appt Best contact number: [phone] (mobile) Optimal time of day to reach caller: ANYTIME Additional comments/information from caller: None Note: Please do not reply to this message. Follow-up communication and further actions as a result of this message need to be communicated with the patient directly, if the patient is not active onMyChart. If the patient is active on MyChart, they will receive notification of the communication/outcome via MyChart. documented in this encounter Plan of Treatment Upcoming Encounters Date Type Department Care Team (Late st Contact Info) Description 11/23/2024 10:00 AM EDT Routine Medical Office Building Obstetrics and Gynecology [address], [address] [place] [address] Parul Hall APRN [address] [place] [address] 12/24/2024 12:00 PM EDT Office Visit Medical Office Building Surgery Spine & Joint [address], [address] [place] [address] Manoj Maza, PA [address] [place] [address] documented as of this encounter [...] documented as of this encounter Care Teams Social Welfare Research Worker Relationship Specialty Start Date End Date Azucena Huerta APRN [address] [place] [id number] PCP - General 04/14/23 documented as of this encounter
--- NOTE | 2024-11-22 13:30 | US_ITS ---
PROCEDURE: US OB <= 14 WEEKS FETUS CLINICAL INDICATION: Needs for dates and viability COMPARISON: No exams were available for comparison FINDINGS: Transvaginal sonographic images of the pelvis were obtained. Her last menstrual period is unknown. An intrauterine gestational sac is present with a pole with a crown-rump length of 2.91cm This correlates to a gestational age of 9weeks 6days. WISAM will be 06/21/2025 heart tones are present with an FHR of 163bpm. Yolk sac is not measured. The right ovary is seen and appears normal. A corpus luteum measuring 2.2 cm is seen in the right ovary. The left ovary is seen and appears normal. There is no fluid in the cul-de-sac. IMPRESSION: 1. Viable embryo within the uterine cavity. Heart rate activity is seen. 2. The embryo measures 9 weeks 6 days and her WISAM will be 06/21/2025. 3. Both ovaries are seen and appear normal. There is a corpus luteum in the right ovary. 4. No fluid in the cul-de-sac. Dictated by: Pascual Gamboa MD 11/22/2024 18:44 Pascual Gamboa MD in OV 11/22/2024 18:44
== END 2024-11-22 23:59 | disposition home or self-care (01) ==
LOC: RAD 13:03
PROVIDERS: Visit Provider Obstetrics & Gynecology
DX: O34.81 Maternal care for other abnormalities of pelvic organs, first trimester (principal); O36.80X0 Pregnancy with inconclusive fetal viability, not applicable or unspecified; O99.321 Drug use complicating pregnancy, first trimester; N83.11 Corpus luteum cyst of right ovary; F12.90 Cannabis use, unspecified, uncomplicated; M54.9 Dorsalgia, unspecified; Z3A.09 9 weeks gestation of pregnancy
CPT/HCPCS: 76801; 87086

== ENCOUNTER 2025-01-25 13:58 | Outpatient (CLI) | payer OTHER, SELFPAY ==
--- NOTE | 2025-01-25 13:45 | US_ITS ---
PROCEDURE: US OB FOLLOW UP CLINICAL INDICATION: heart tones and amniotic fluid COMPARISON: US US OB <= 14 WEEKS FETUS from 11/22/2024 FINDINGS: Transabdominal sonographic images of the pelvis were obtained. The following parameters are obtained: From her established due date she is 18weeks 2days Nonviable fetus in the breech presentation with a posterior placenta grade 1. The cervix measures 2.98 cm heart tones are absent. BPD: 15weeks 2days there appears to be significant edema of the head. See image 8 and 18. HC: 15weeks 2days Amniotic fluid: MVP 3.46 cm Anatomical scan was difficult as the fetus was folded upon itself. IMPRESSION: 1. Nonviable fetus within the uterine cavity. heart tones are absent. The placenta is posterior grade 1. 2. The fluid is within normal limits with MVP 3.46 cm. 3. anatomy was difficult to obtain since the fetus was folded upon itself and multiple anomalies were suspected. Dictated by: Pascual Gamboa MD 01/25/2025 17:07 Pascual Gamboa MD in OV 01/25/2025 17:07
--- OUTSIDE RECORDS SUMMARY | 2025-03-15 10:34 | XMS_ITS | Encounter Summary ---
[facility] Organization [facility] Address [address] [place] [address] Care Team Providers Care Firefighter Name Role Phone Provider, No Known Primary Care Provider Unavail able Reason for Visit * Reason Onset Date Comments Bereavement 01/31/2025 Follow Up Encounter Details Date Type Department Care Team (Late st Contact Info) Description 01/31/2025 Telephone [facility] LABOR DELIVERY [address] [place] [address] Yane Pennington home care and home health aides teacher Bereavement (Follow Up) Social History Tobacco Use Types Packs/Day Years Used Date Smoking Tobacco: Former Cigarettes Q uit: 03/2022 Smokeless Tobacco: Never Alcohol Use Standard Drinks/Week Comments Not Currently 0 (1 standard drink = 0.6 oz pur e alcohol) Comments No Sex and Gender Information Value Date Recorded Sex Assigned at Not on file Legal Sex Female 3:57 PM EDT Gender Identity Not on file Sexual Orientation Not on file documented as of this encounter Miscellaneous Notes * Telephone Encounter - Yane Pennington RN - 01/31/2025 2:01 PM EST Levi called [facility] [place] [facility]. She states they are doing OK. Discussed that they discovered no heart beat at ultrasound appointment and was induced at [facility]. We briefly discussed her two children, 6 months and 7 years and she state 7yo doesn't really understand but knew the baby was sick. States was baby boy named Jade. She states receiving a grief packet at hospital but has not reviewed at this time. I mentioned support group and encouraged her to contact [facility] office if she would like to attend in the future. I also mentioned on-line support programs that are listed on this information sheet (emailed after phone conversation per her request). Discussed [facility] services and she states she will call [facility] office if she would likemore information. Denies questions or concerns at this time. Encouraged to contact the Bereavement office if those arise in the future or if she would like to talk. documented in this encounter Plan of Treatment Not on file documented as of this encounter Visit Diagnoses Not on filedocumented in this encounter Care Teams Firefighter Relationship Specialty Start Date End Date Provider, [place] [address] PCP - General 12/28/24 documented as of this encounter
--- OUTSIDE RECORDS SUMMARY | 2025-03-15 10:34 | XMS_ITS | Referral Summary ---
Author Organization [employer] ([place], [place], [place], [place], [place]) Address [address] [place] [address] Care Team Providers Care Head Tennis Coach Name Role Phone [facility], [facility] Primary Care Provider Allergies [...] Date Clayton rded Speak language other than Georgian at home Not on file 10/04/2023 Want [...] Plan of Treatment Not on file Insurance [facility] Care Teams Head Tennis Coach Relationship Specialty Start Date End Date [facility], [facility]Doc [facility] [place] [address] PCP - General 07/03/24
--- OUTSIDE RECORDS SUMMARY | 2025-03-15 10:34 | XMS_ITS | Encounter Summary ---
Author Organization [facility] Address [address] [place] [id number] Care Team Providers Care Waiter/Waitress Counter Name Role Phone Provider, No Known Primary Care Provider Unavail able Encounter Details Date Type Department Care Team (Late st Contact Info) Description 01/17/2025 Telephone [facility] MATERNAL MEDICINE [address] [place] [id number] Zaid Max MD [address] [facility] [address] [place] [address] Social History Tobacco Use Types Packs/Day Years Used Date Smoking Tobacco: Former Cigarettes Q uit: 03/2022 Smokeless Tobacco: Never Alcohol Use Standard Drinks/Week Comments Not Currently 0 (1 standard drink = 0.6 oz pur e alcohol) Comments Yes Sex and Gender Information Value Date Recorded Sex Assigned at Not on file Legal Sex Female 3:57 PM EDT Gender Identity Not on file Sexual Orientation Not on file documented as of this encounter Miscellaneous Notes * Telephone Encounter - Zaid Max MD - 01/17/2025 1:11 PM EST [facility] Phone Note: Levi Lassiter is our 24 y.o. at 17w6d that underwent amniocentesis on 01/11/25 due to NIPS that was high risk for Tripoloidy, T13, or T18 in the setting of an intrauterine with multiple suspected anomalies. 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 We discussed that typical counseling is to not make any irreversible therapeutic action based on these screening results as a confirmatory karyotype is pending. We discussed that if confirmed, triploidy is not compatible with life and that there is a high risk of intrauterine demise between now and time of delivery (if expectant management is pursued). We discussed that in the meantime, she is at high risk for severe, early onset preeclampsia and will need close surveillance to ensure her health and well-being. Placenta will also need to be sent to pathology to rule out any molar components that would warrant furtherpostnatal surveillance. We also discussed interruption and give that this genetic diagnosis is considered lethal. She has follow up with us in ~2 weeks. All questions were answered to the best of my ability prior to ending our conversation. Zaid Max MD Maternal- Medicine [facility] documented in this encounter Plan of Treatment Not on file documented as of this encounter Visit Diagnoses Not on filedocumented in this encounter Care Teams Waiter/Waitress Counter Relationship Specialty Start Date End Date Provider, [place] [address] PCP - General 12/28/24 documented as of this encounter
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
--- OUTSIDE RECORDS SUMMARY | 2025-03-15 10:34 | XMS_ITS | Encounter Summary ---
[facility] Address [address] [place] [address] Care Team Providers Care Caretaker Grounds Name Role Phone Provider, No Known Primary Care Provider Unavail able Encounter Details Date Type Department Care Team (Late st Contact Info) Description 01/17/2025 Telephone [facility] MATERNAL MEDICINE [address] [facility] [address] [place] [address] Sofie Victoria RN Social History Tobacco Use Types Packs/Day Years [...] encounter Miscellaneous Notes * Telephone Encounter - Sofie Victoria RN - 01/17/2025 12:40 PM EST Phone call received from Zoë Seals in Client Services for women's services at [facility] (return call number: [phone]) regarding patient's recent amniocentesis. Yarn Dumper has a purple topvacutainer/blood tube and doesn't know what it's for. RN told her it was the patient's blood and was to be used to rule out maternal cell contamination. [facility] doesn't need to use it due to the results of the test, is it ok for them to dispose of it? RN consulted with Dr. Max who confirms they may dispose of the purple top only as long as the test has reflexed to a karyotype. [facility] confirms karyotype is in process and the purple top blood tube will be disposed of. Resultswill be faxed to us. RN gave fax number ([phone]) to technical service representative. documented in this encounter Plan of Treatment Not on file documented as of this encounter Visit Diagnoses Not on filedocumented in this encounter Care Teams Caretaker Grounds Relationship Specialty Start Date End Date Provider, [place] [address] PCP - General 12/28/24 documented as of this encounter
--- OUTSIDE RECORDS SUMMARY | 2025-03-15 10:34 | XMS_ITS | Encounter Summary ---
Author Organization [facility] Address [address] [place] [id number] Care Team Providers Care Wheel Press Clerk Name Role Phone Provider, No Known Primary Care Provider Unavail able Reason for Visit * Reason Onset Date Comments Results 01/24/2025 Encounter Details Date Type Department Care Team (Late st Contact Info) Description 01/24/2025 Telephone [facility] MATERNAL MEDICINE [address] [place] [phone] Zaid Max MD [address] [facility] [address] [place] [address] Results Social History Tobacco Use Types Packs/Day Years [...] Telephone Encounter - Zaid Max MD - 01/24/2025 10:12 AM EST [facility] Phone Note: I called Levi Lassiter and, after confirming her identity, disclosed the results of the karyotype that was obtained from amniocentesis on 01/11/25. FISH previously resulted with concern for triploidy. Karyotype confirms this diagnosis with an abnormal karyotype of 69, XXY. She is scheduled for follow up on 02/01/25. We reviewed that this diagnosis is considered a lethal genetic diagnosis with high risk for stillbirth or demise shortly after delivery. Placenta should be sent to pathology given high risk for partial mole and need for closer outpatient follow up after resolution of the . Time was given the ask questions and all were answered to the best of my ability priorto ending our phone call. Zaid Max MD Maternal- Medicine [facility] documented in this encounter Plan of Treatment Not on file documented as of this encounter Visit Diagnoses Diagnosis Abnormal chromosomal and genetic finding on screening mother- Primary documented in this encounter Care Teams Wheel Press Clerk Relationship Specialty Start Date End Date Provider, [place] [address] PCP - General 12/28/24 documented as of this encounter
--- OUTSIDE RECORDS SUMMARY | 2025-03-15 10:34 | XMS_ITS | Encounter Summary ---
Author Organization [facility] Address [address] [place] [address] Care Team Providers Care Tailor Women'S Garment Alteration Name Role Phone Azucena Huerta APRN Primary Care Provider +1- [phone] Encounter Details Date Type Department Care Team (Late st Contact Info) Description 03/31/2023 Ophth Exam [facility] [address] [place] [address] Vel Duarte MD [address] [place] [address] Social History Tobacco Use Types [...] a care home (including now)? No 04/02/2023 Utilities Answer [...] documented as of this encounter Care Teams Tailor Women'S Garment Alteration Relationship Specialty Start Date End Date Azucena Huerta APRN [address] [place] [address] PCP - General 04/14/23 documented as of this encounter
--- OUTSIDE RECORDS SUMMARY | 2025-03-15 10:34 | XMS_ITS | Clinical Summary ---
Author Organization [employer] ([place], [place], [place], [place], [place]) Address [address] [place] [address] Care Team Providers Care Supervisor Nut Processing Name Role Phone [facility], [facility] Primary Care Provider Allergies No [...] Date Clayton rded Speak language other than Maldivian at home Not on file 10/04/2023 Want [...] and Screening (12+) 10/01/2024 10/02/2023 COVID-19 VACCINE (1 - 2023- season) 2024 Influenza Vaccine (#1) 2024 DTAP/TDAP/TD VACCINES (9 - Td or Tdap) 03/31/2033 03/31/2023, 05/21/2018, 05/18/2009, Additional history exists Pneumococcal Vaccine: 0-49 Years Aged Out No longer eligible based on patient's age to complete this topic [facility] Care Teams Supervisor Nut Processing Relationship Specialty Start Date End Date [facility], [facility] Find-a-Doc [place] [id number] PCP - General 07/03/24
--- OUTSIDE RECORDS SUMMARY | 2025-03-15 10:34 | XMS_ITS | Clinical Summary ---
Author Organization [facility] Address [address] [place] [address] Care Team Providers Care Child Caregiver Private Home Name Role Phone Provider, No Known Primary Care Provider Unavail able Allergies No known active allergies Medications Ventolin HFA 108 (90 Base) MCG/ACT inhaler Inhale 2 puffs Every 4 (Four) Hours As Needed. 5 Active ondansetron ODT (ZOFRAN-ODT) [address] 1 tablet on the tongue Every 8 (Eight) Hours As Needed. 5 Active Vit-Fe Fumarate-FA ( vitamin 27-0.8) 27-0.8 MG tablet tablet Take by mouth Daily. Active Active Problems Problem Noted Date Diagnosed Date Abnormal chromosomal and gen etic finding on screening mother 01/05/2025 Assessment & Plan (01/11/2025 12:07 PM EST): - NIPT via the [employer] platform resulted as high risk for triploidy, T13, and T18 given low fraction despite secondary analysis controlling for GA and maternal weight - US is concerning with multiple anomalies, especially intracranial abnormalities and potential for congenital heart defect - The anatomy is otherwise not well-visualized given the severe growth restriction - We reviewed that the above raises the positive predictive value of the abnormal genetic screen - all options were reviewed and she elected to undergo amniocentesis - Plan for FISH reflex to karyotype if abnormal reflex to [facility] if normal - Discussed that if a genetic abnormality were present, it is most likely sporadic and would confer a ~1% risk in a future until her age related risk is greater (age 39-40) - Reviewed high risk of demise Recommendations: - Amniocentesis performed today; uncomplicated - Will call with results once able - Follow up in 3 weeks for growth anatomic survey Assessment & Plan (01/05/2025 3:02 PM EDT): Patient had NIPT screening through [facility] at 14wks that resulted with increased risk of triploidy, trisomy 18, or trisomy 13. [facility] does an additional statistical analysis that looks specifically at the fraction obtained and compares this with the expected fraction for women of the same age, weight, gestational age to determine if this increased risk is actually due to chromosomal conditions. This secondary analysis was also positive and gave a risk of triploidy, trisomy 18, or trisomy 13 of 1:17. Ultrasound today was very concerning as there were several structural abnormalities that were identified and in addition to soft markers of aneuploidy that were seen. First, there was severe and early onset IUGR with the abdominal circumference measuring consistent with 13wks. 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 The heart is compressed against the left posterior chest wall and appears to have abnormal outflow tracts. We were unable to visualize kidneys or bladder. There is echogenic bowel. Long bones are lagging. Patient and partner were told of these findings and of my significant concern that her baby has either triploidy, trisomy 18, or trisomy 13. I reviewed with the patient that babies with these chromosomal abnormalities do not survive long if at all after . In fact, there is a significantly increased risk for stillbirth. I offered the patient diagnostic testing with an amniocentesis versus watchful waiting versus information on termination of . Patient and her partner wanted to discuss today's findings and make a decision and then get back with me at a later date. I gave them my personal contact information so that they could reach me with any further questions and could contact me when they decided how they wanted to proceed. Encounters Date Type Department Care Team Description 01/31/2025 Telephone [facility] DELIV[facility] [address] [place] [address] Yane Pennington program clinician Bereavement (Follow Up) 01/24/2025 Telephone [facility] [address] [facility] [address] [place] [id number] Zaid Max MD Results 01/17/2025 Telephone [facility] [address] [facility] [address] [place] [phone] Zaid Max MD 01/17/2025 Telephone [facility] [address] [facility] [address] [place] [phone] Sofie Victoria RN 01/11/2025 10:45 AM EST Office Visit [facility] [address] [facility] [address] [place], [place] [phone] Zaid Max MD Abnormal chromosomal and genetic finding on screening mother (Primary Dx) 01/11/2025 10:42 AM EST - 01/11/2025 11:59 PM EST Hospital Encounter [facility] DI[facility] [address] [place] [address] Lila Bowman MD Abnormal chromosomal and genetic finding on screening mother; 16 weeks gestation of Discharge Disposition: Home or Self Care 01/11/2025 Travel 01/05/2025 12:30 PM EDT Office Visit [facility] [address] [facility] [address] [place] [phone] Lila Bowman MD Abnormal chromosomal and genetic finding on screening mother (Primary Dx); 16 weeks gestation of 01/05/2025 12:20 PM EDT - 01/05/2025 11:59 PM EDT Hospital Encounter [facility] [address] [place] [address] Marielos Gonzales DO Abnormal genetic test during ; , unspecified gestational age Discharge Disposition: Home or Self Care 01/05/2025 Travel from Last 3 Months Social History Tobacco Use Types Packs/Day Years Used Date Smoking Tobacco: Former Cigarettes Q uit: 03/2022 Smokeless Tobacco: Never Tobacco Cessation:Counseling Given: Not Answered Alcohol Use Standard Drinks/Week Comments Not Currently 0 (1 standard drink = 0.6 oz pur e alcohol) Comments No Sex and Gender Information Value Date Recorded Sex Assigned at Not on file Legal Sex Female 3:57 PM EDT Gender Identity Not on file Sexual Orientation Not on file Last Filed Vital Signs Vital Sign Reading Time Taken Comments Blood Pressure 112/58 01/11/2025 10:49 AM EST Pulse - - Temperature - - Respiratory Rate - - Oxygen Saturation - - Inhaled Oxygen Concentration - - Weight 72.6 kg (160 lb) 01/11/2025 10:49 AM EST Height 158.8 cm (5' 2.5 ) 01/05/2025 12:43 PM ED T Body Mass Index 28.8 01/05/2025 12:43 PM EDT Plan of Treatment Health Maintenance Due Date Last Done Comments Annual Gynecologic Pelvic and Breast Exam 2000 HPV VACCINES (2 - 3-dose series) 11/21/2016 10/24/2016 PAP SMEAR 09/30/2019 INFLUENZA VACCINE 10/08/2024 ANNUAL PHYSICAL 12/28/2024 TDAP/TD VACCINES (5 - Td or Tdap) 05/11/2034 05/11/2024, 03/31/2023, 05/21/2018, Additional history exists HEPATITIS C SCREENING Completed 10/20/2024, 025 Pneumococcal Vaccine 0-49 Aged Out No longer eligible based on patient's age to complete this topic Procedures Procedure Name Priority Date/Time Associated Diagnosis Comments [facility] Routine 01/11/2025 11:47 AM EST Abnormal chromosomal and genetic finding on screening mother 16 weeks gestation of SCANNED - LABS 01/11/2025 [facility] Routine 01/05/2025 1:31 PM EDT Abnormal genetic test during , unspecified gestational age from Last 3 Months Results * [facility] (01/11/2025 11:47 AM EST) Only the most recent of2 resultswithin the time period is included. Anatomical Region Laterality Modality Ultrasound 01/11/2025 10:5 5 AM EST Narrative 01/11/2025 12:03 PM EST PAT NAME: LEVI HERNNADEZ [facility] REC#: [id number] DA: 2000 PAT GEND: F PAT TYPE: O EXAM BARBARA: [id number] REF PHYS MARIELOS GONZALES Patient Status Outpatient Indication ======== Abnormal NIPT with multiple anomalies. History ====== General History Rhesus: Rh positive Method ======= Transabdominal ultrasound examination. View: Adequate view ========= Hernandez . Number of fetuses: 1 Dating ====== Method of dating: based on stated WISAM GA by prior assessment 17 w + 0 d WISAM by prior assessment: 06/21/2025 Previous dating: based on stated WISAM, selected on 01/05/2025 Agreed WISAM of previous datin06/21/2025 Assigned: based on stated WISAM, selected on 01/11/2025 Assigned GA 17 w + 0 d Assigned WISAM: 06/21/2025 length 280 d General Evaluation Cardiac activity present. Placenta posterior. Amniotic fluid normal. Amniocentesis Start 11:36 AM. End 11:39 AM Instrument: TA 22G needle. Insertion site: lower abdomen mid. Method: transamniotic. Entries uterus: 1 Sample: obtained. Sample amount 20 ml. Sample quality: clear yellow Sample identification confirmed Amniocentesis was performed under simultaneous ultrasound guidance, utilizing aseptic technique. The needle path did not traverse the placenta. 20 ml of light yellow fluid was readily obtained on the initial attempt. There was no streaming upon needle removal. Post-procedure instructions were provided and verbally reviewed with the patient. Maternal blood type is B+; Rhogam was not indicated. FISH w/ reflex to either karyotype or chromosomal microarray pending results. Amniocentesis proceeded without apparent complication. Evaluation ========= Post cardiac activity: present, normal. FHR post 142 bpm Post AF assessment: MVP post 3.6 cm Rhesus Prophylaxis Rh positive Anti-D prophylaxis not offered Consultation / Office Visit Type: Consultation See [facility] for full consult note. 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 The other aspects of the anatomy are not well-visualized given size and positioning Uncomplicated amniocentesis Recommendation Follow up in 3 weeks for growth assessment, anatomic survey, and further counseling Will call with genetic testing results as soon as they result Coding ====== Description: 28377-51 Limited Ultrasound Description: 60896 Amniocentesis Description: 61431-02 Ultrasound Guidance - [employer] Operations Manager: Kirstin Coreas RDMS Physician: Zaid Max MD Electronically signed by: Zaid Max MD at: 13:50 Procedure Note Zaid Max MD - 01/11/2025 PAT NAME: LEVI HERNANDEZ MED REC#: [id number] DA: [id number] PAT GEND: F PAT TYPE: O EXAM BARBARA: [id number] REF PHYS MARIELOS GONZALES Patient Status Outpatient Indication ======== Abnormal NIPT with multiple anomalies. History ====== General History Rhesus:Rh positive Method ======= Transabdominal ultrasound examination. View: Adequate view ========= Hernandez . Number of fetuses: 1 Dating ====== Method of dating:based on stated WISAM GA by prior [id number] w + 0 d WISAM by prior assessment:06/21/2025 Previous dating:based on stated WISAM, selected on 01/05/2025 Agreed WISAM of previous datin06/21/2025 Assigned:based on stated WISAM, selected on 01/11/2025 Assigned GA17 w + 0 d Assigned WISAM:06/21/2025 d General Evaluation Cardiac activity present. Placenta posterior. Amniotic fluid normal. Amniocentesis Start 11:36 AM. End 11:39 AM Instrument: TA 22G needle. Insertion site: lower abdomen mid. Method:transamniotic. Entries uterus: 1 Sample: obtained. Sample amount 20 ml. Sample quality: clear yellow Sample identification confirmed Amniocentesis was performed under simultaneous ultrasound guidance,utilizing aseptic technique. The needle path did not traverse theplacenta. 20 ml of light yellow fluid was readily obtained on the initial attempt. There was no streamingupon needle removal. Post-procedure instructions were provided andverbally reviewed with the patient. Maternal blood type is B+; Rhogam was not indicated. FISH w/reflex to either karyotype or chromosomal microarray pending results.Amniocentesis proceeded without apparent complication. Evaluation ========= Post cardiac activity: present, normal. FHR post 142 bpm Post AF assessment: MVP post 3.6 cm Rhesus Prophylaxis Rh positive Anti-D prophylaxis not offered Consultation / Office Visit Type: Consultation See [facility] for full consult note. 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 The other aspects of the anatomy are not well-visualized given fetalsize and positioning Uncomplicated amniocentesis Recommendation Follow up in 3 weeks for growth assessment, anatomic survey,and further counseling Will call with genetic testing results as soon as they result Coding ====== Description:09573-91 Limited Ultrasound Description:16927 Amniocentesis Description:53839-98 Ultrasound Guidance - [employer] Operations Manager: Kirstin Coreas RDMS Physician: Zaid Max MD Electronically signed by: Zaid Max MD at: 13:50 Lila Bowman MD IM US ORDERABLES Edited Re sult - Final * LABS SCANNED (01/11/2025) [facility] Onbase LAB BLOOD ORDERABLES Final Re sult from Last 3 Months Insurance [facility] Care Teams Child Caregiver Private Home Relationship Specialty Start Date End Date Provider, No Known [facility] [place] [address] PCP - General 12/28/24
== END 2025-01-25 23:59 | disposition home or self-care (01) ==
PROVIDERS: PCP Family Medicine; Visit Provider Obstetrics & Gynecology
DX: O36.4XX0 Maternal care for intrauterine death, not applicable or unspecified (principal); Z3A.18 18 weeks gestation of pregnancy
CPT/HCPCS: 76816

== ENCOUNTER 2025-01-25 15:19 | Inpatient (IN) | payer OTHER, SELFPAY ==
--- NOTE | 2025-01-25 15:31 | EXP.HP ---
History of Present Illness *Admission Date: 01/25/25 *Reason for visit:: Induction *History of present illness: Levi is a 24yo who presented to the office today after 3 days of vaginal bleeding and was noted to have no cardiac activity. Patient sent to radiology and diagnosis [facility] Disclaimer: The information contained in this section may have been updated after the patient was seen, as this information can be updated by other users. Medical History (Updated 01/25/25 @ 18:36 by Nicole Gonzales DO) demise Short interval between pregnancies affecting , antepartum Marijuana use during Abnormal uterine bleeding (AUB) Hot flashes Broken back Broken arm Bipolar II disorder Intrauterine growth restriction (IUGR) affecting care of mother Positive urine drug screen History of chlamydia infection Surgical History History of wisdom tooth extraction History of tonsillectomy and adenoidectomy Family History Other Diabetes Hypertension Social History (Updated 01/25/25 @ 17:06 by Valerie Ram RN) Smoking Status: Current every day smoker tobacco type: cigarettes packs per day: 1 second hand exposure: No alcohol intake: never substance use type: former substance user current occupational status: unemployed Travel in the last 8 weeks?: None number of children: 1 current occupational exposures/hazards: No caffeine: No Have you lived/traveled outside US in past 30 days?: No Contact w/someone who lives/traveled outside US past 30 days?: No Exposure to someone with infectious disease in past 14 days?: No Do you have a fever (greater than 100.4 F or 38 C)?: No Have you tested positive for COVID-19?: No Exposed to someone with COVID-19 in past 14 days?: No Do you have a sore throat?: No Do you have a cough?: No Do you have any weakness?: No Are you experiencing any nausea/vomitting?: No Do you have any diarrhea?: No Are you experiencing any unusual bleeding?: No Do you have any muscle aches/pain?: No Do you have any abdominal pain?: No Are you experiencing loss of taste or smell?: No Other Medical History Have you received the Flu Vaccine for this season: No Have you received the Pneumonia Vaccine: No Review of Systems Review of Systems Review of systems (narrative): Review of Systems Constitutional: Denies fever, chills, and sweats Eyes: Denies vision change/ pain Respiratory: Denies cough and shortness of breath Cardiovascular: Denies chest pain and lightheadedness Gastrointestinal: denies abdominal pain. Denies nausea, vomiting. Genitourinary: Denies dysuria and incontinence Musculoskeletal: Denies shoulder pain and back pain Neurological: Denies change in speech or headaches Meds Home Medications and Allergies Home Medications ?Medication ?Instructions ?Recorded ?Confirmed ?Type ondansetron 4 mg disintegrating See Rx Instructions .Route 01/03/25 01/25/25 Rx tablet .COMPLEX #30 tabs albuterol sulfate 90 mcg/actuation 1 inh inhalation Q6-8H PRN 01/20/25 01/25/25 Rx aerosol inhaler (Ventolin HFA) shortness of breath or wheezing #8.5 grams New Prescriptions to Start Prescriptions: Allergies Allergy/AdvReac Type Severity Reaction Status Date / Time No Known Allergies Allergy Verified 01/25/25 13:16 Exam Data for Last 24 hours Narrative: General: patient is alert oriented in no acute distress and responds appropriately to questions. HEENT: NCAT, EOMI, moist mucous membranes, neck supple with full ROM Cardiovascular: RRR +S1/S2, no murmurs or rubs Pulmonary: Clear to auscultation bilaterally, nonlabored breathing, symmetric chest rise Abdominal: Gravid abdomen appropriate for gestation. No guarding, rebound, or tenderness noted. Extremities: trace edema, no tenderness or cyanosis noted Skin: Normal turgor, intact, warm. Negative for erythema, pallor, petechia, or lesions Neurologic: Negative for sensory or motor deficit Psychiatric: Normal affect, normal thought process, good judgment and insight, no depression or anxious mood appreciated. *Routine HEENT Exam Head: Present normocephalic and atraumatic Eye: Present EOMI, PERRL and normal accommodation; Absent conjunctival icterus, scleral injection, nystagmus or exophthalmos ENT: Present mucous membranes moist *Routine Respiratory Exam Respiratory: Present CTA bilaterally, normal respiratory effort, able to speak in complete sentences and symmetric chest movement; Absent accessory muscle use, decreased breath sounds, rales, respiratory distress, wheezes, distant breath sounds or diminished air movement *Routine Cardiovascular Exam Cardiovascular: Present RRR, Normal S1 and Normal S2; Absent murmur or gallop *Routine Abdominal Exam Abdominal: Present soft and normoactive bowel sounds; Absent tenderness, distended, rebound or guarding *Routine Rectal Exam Rectal:: deferred *Routine Genitalia Exam Genitalia:: normal female Assessment and Plan *Assessment and plan (1) demise: Status: Acute Category: Medical (2) Short interval between pregnancies affecting , antepartum: Status: Acute Category: Medical Code(s): O09.899 - Supervision of other high risk pregnancies, unspecified trimester (3) 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
[2025-01-25 16:31] LABS: Hematocrit 41.8 % (37.0-47.0); Hemoglobin 14.1 g/dL (12.2-16.2); Immature Granulocytes % 0.3 %; Mean Corpuscular HGB Conc 33.7 g/dL (31.8-35.4); Mean Corpuscular Hemoglobin 28.0 pg (27.0-31.2); Mean Corpuscular Volume 83.1 fl (81-99); Nucleated Red Blood Cells % 0 %; Platelet Count 244 K/mm3 (142-424); Red Blood Count 5.03 M/mm3 (4.20-5.40); Red Cell Distribution Width-SD 39.0 fL; White Blood Count 8.7 K/mm3 (4.8-10.8)
[2025-01-25 16:37] LABS: Albumin Level 4.7 g/dl (3.5-5.0); Chloride 104 mmol/L (98-107); Potassium 3.6 mmoL/L (3.5-5.1); Sodium 141 mmol/L (136-145)
[2025-01-25 16:40] LABS: Alanine Aminotransferase 57 U/L (12-78); Albumin/Globulin Ratio 1.4 (1.1-1.8); Alkaline Phosphatase 67 U/L (38-126); Anion Gap 14.6 mEq/L (5-15); Aspartate Amino Transferase 40 U/L (14-36); Bilirubin,Total 0.3 mg/dl (0.2-1.3); Blood Urea Nitrogen 11 mg/dl (7-17); Carbon Dioxide 26 mmol/L (22.0-30.0); Creatinine,Serum 0.80 mg/dl (0.52-1.04); Estimated Glomerular Filt Rate 87 ml/min (>60); GFR (African American) 105 ML/MIN (>60); Globulin 3.4 g/dL (1.3-3.2); Total Protein,Serum 8.1 g/dl (6.3-8.2)
[2025-01-25 16:41] LABS: Calcium 9.7 mg/dl (8.4-10.2); Glucose 94 mg/dl (74-100)
[2025-01-25 17:02] VITALS: BP 133/69; PULSE 75; RESP 18; TEMP 36.8; O2SAT 98; BMI 29.2
--- OUTSIDE RECORDS SUMMARY | 2025-01-25 19:19 | XMS_ITS | Data Portability ---
Author Organization [facility] Address [address] [place] [address] Assessment No assessment recorded. Plan of Treatment Reminders Order Date Submit Date Provider Last Modified By Organization Details Last Modified Time Details Appointments None recorded. Lab rapid flu (A+B) [address], [address], 5 14:41:34 rapid SARS CoV 2 Ag, QL, [place], upper respiratory specimen [address], [address], 5 14:41:34 rapid strep group A, throat [address], [address], 5 14:41:34 rsv (respirator y syncytial virus) Ag, dfa, nasopharyng eal [address], [address], 5 14:41:34 Referral None recorded. Procedures None recorded. Surgeries None recorded. Imaging None recorded. Medication Orders amoxicillin 875 mg tablet 2024 025 [facility], [address] [place], [address], 14:42:05 Patient TargetsNo targets recorded. Patient InstructionsNo instructions recorded. Reason for Referral None Reported. Results Created Date Observation Date Name Description Value Unit Range Abnormal Flag Note LastModifiedBy Organization Detail LastModifiedTime 10/21/19 25 10/20/2024 HIV (1+2) Ab scree n, serum HIV 1 & 2 antibody/ant igen screen w/reflex to HIV 1/2 differentiat ion non-re active non-re active normal Not Available [address], [address], 11/12/2024 11:16:51 10/21/19 25 10/20/2024 Hepat itis C IgG Ab, qual, serum hepatitis C antibody negati ve negati ve normal Not Available [address], [address], 11/12/2024 11:14:03 Result Notes None recorded. Problems Name Problem SNOMED Code Status Onset Date Resolution Date Notes Provider Name and Address Organization Details Recorded Time Acute right otitis media 366810848 Active 025 ELIEL HURD NP [address] [place], [address] , [facility] [employer] 07/05/2024 14:34:12 Problem Notes None recorded. Medical Equipment None Reported. Allergies No known drug allergies Medications Name Sig Start Date Stop Date Status Note LastModified by Organization Details LastModified Time ibuprofen 800 mg tablet TAKE ONE TABLET BY MOUTH EVERY 8 HOURS NEEDED FOR PAIN active Not Available Not Available No t Available amoxicillin 875 mg tablet Take ONE TABLET BY MOUTH EVERY 12 HOURS FOR 10 DAYS active Not Available Not Available No t Available ferrous sulfate 325 mg (65 mg iron) tablet,delaye d release TAKE ONE TABLET BY MOUTH EVERY DAY active Not Available Not Available No t Available Zofran active Not Available Not Availa ble Not Available cetirizine active Not Available Not Av ailable Not Available Vitals Date Recorded Body weight Oxygen saturation Oxygen saturation in Arterial blood by Pulse oximetry Heart rate Systolic And Diastolic Provider Name and Address Organization Details Last Updated DateTime 5 18983.4 g 97 % 97 % 117 /min 108/68 mm[Hg] Irving Payan [facility] [employer] [facility]. 13:51:28 Social History None recorded. Functional Status None recorded. Mental Status None recorded. Family History Relationship Description Onset Age of this Age Resolved Age Notes LastModified by Organization Details LastModified Time Paternal Aunt Diabetes mellitus [email or web address] Not available 2024 13:48:17 Father Asthma Not available 07/05/2024 13:48:29 Medical History Condition Response Emergency room visit since last appointm ent. Y Gynecological HistoryNo gynecological history recorded. Obstetrics History GPAL:G 0 P 0 0 0 0 Immunizations Vaccine Type Date Status Note Provider Nam e and Address Organization Details Recorded Time Hep B, adolescent or pediatric 9 completed Not Available [facility] 07/05/2024 13:43:51 DTaP, unspecified formulation 9 completed Not Available [facility] 07/05/2024 13:43:51 IPV 9 completed Not Available [facility] 07/05/2024 13:43:51 Hib-Hep B 9 completed Not Available [facility] 07/05/2024 13:43:51 DTaP, unspecified formulation 0 completed Not Available [facility] 07/05/2024 13:43:51 IPV 0 completed Not Available [facility] 07/05/2024 13:43:51 Hib-Hep B 0 completed Not Available [facility] 07/05/2024 13:43:51 DTaP, unspecified formulation 0 completed Not Available [facility] 07/05/2024 13:43:51 varicella 0 completed Not Available [facility] 07/05/2024 13:43:51 Hib (PRP-OMP) 0 completed Not Available [facility] 07/05/2024 13:43:51 DTaP, unspecified formulation 2 completed Not Available [facility] 07/05/2024 13:43:51 MMR 2 completed Not Available [facility] 07/05/2024 13:43:51 IPV 2 completed Not Available [facility] 07/05/2024 13:43:51 DTaP, unspecified formulation 3 completed Not Available [facility] 07/05/2024 13:43:51 MMR 3 completed Not Available [facility] 07/05/2024 13:43:51 IPV 3 completed Not Available [facility] 07/05/2024 13:43:51 Tdap 0 completed Not Available [facility] 07/05/2024 13:43:51 HPV, quadrivalent 7 completed Not Available [facility] 07/05/2024 13:43:51 Hep A, adult 9 completed Not Available [facility] 07/05/2024 13:43:51 Tdap 9 completed Not Available [facility] 07/05/2024 13:43:51 Tdap 4 completed Not Available [facility] 07/05/2024 13:43:51 Tdap 5 completed Not Available [facility] 07/05/2024 13:43:51 Past Encounters Encounter ID Performer Location Encounter Start Date Encounter Closed Date Diagnosis/Indication Diagnosis SNOMED-CT Code Diagnosis ICD10 Code Diagnosis IMO Codes Diagnosis Note [id number] ELIEL HURD NP [address] [address] 07/05/2024 13:43:09 07/05/2024 15:13:19 Viral screening 267635590 Z11.59 Acute righ t otitis media 436582652 H66.91 Supportive care reviewed: raising HOB, humidifier use, saline nasal spray, rest, encourage PO fluids and monitor hydration status, infection control measures.R ecommended acetaminop hen PRN pain, fever; reviewed appropriat e doses.Foll ow-up as below. Health Concerns Section Related Observation LastModified by Organization Detai ls LastModified Time None Recorded Concern Status LastModified by Organization Details LastModified Time None Recorded Advance Directives Directive None Recorded Payers Insurance Date Sequence Insurance Name Policy Number Policy Arevalo Covered Member ID Arevalo Member ID Guarantor Name 10/14/2024 1 [employer] [facility] (MEDICAID HMO) Levi Lassiter [id number] Levi Lassiter 07/05/2024 1 *SELF PAY* Ector Lassiter Notes Date Note Type Note Provider Name and Address Organization Details Recorded Time 5 text/htm l Upper Respiratory SymptomsReported by PatientUpper Respiratory SymptomsFor quality, patient reportscongestedandnasal discharge. For associated symptoms, patient reportssore throatandheadachebut reportsno chest pain,no shortness of breath,no cyanosis,no fatigue,no sweats,no fever,no vomiting,no diarrhea,no nausea,no chills, andno conjunctivitis. For location, patient reportshead. For severity, patient reportsmoderate. For context, patient reportsno sick contacts,no foreign travel, andnon-smoker.ROS as noted in the HPI Patient presents with sore throat, runny nose, right ear pain, headache, and congestion. Denies fever, chills, SOA, cough. Reports she is being induced later tonight and wanted to r/o covid, flu, and rsv. ELIEL HURD, CHANDU [address] [place] [address], [place], [address], [facility] 07/05/2024 14:42:07 OBGyn Episode No OBEpisode recorded.
[2025-01-25 19:56] VITALS: BP 122/61; PULSE 71; RESP 18; TEMP 37.2; O2SAT 99
[2025-01-26] MEDS: MORPHINE 2MG/ML SYRINGE 2 MG IV (03:03)
--- NOTE | 2025-01-26 04:05 | HMH.PROCNOTE ---
[facility] Procedure Note Date: 01/26/25 Time: 03: Procedure Note:: Levi was being followed with a known triplody that was diagnosed after amniocentesis. She has been followed by [facility]. She presented today to the office after 3 days of vaginal bleeding and on bedside ultrasound cardiac activity was not noted. Official radiology ultrasound showed no cardiac activity and no amniotic fluid. The patient was admitted for induction of labor. She received vaginal Cytotec 200 mcg every 4 hours and after 2 doses she had a spontaneous vaginal delivery. She was given a third dose p.o. and the placenta shortly followed, intact. Forehead and vertex appear grossly enlarged. At this time mom is bonding with infant and a thorough exam has not been completed. Exam of the extremities, fetus, length, weight will be added as an addendum at a later time. At this time the patient is appropriate and doing well given the circumstances.
[2025-01-26] MEDS: OXYTOCIN/RINGERS LACTATE 30 UNITS/500 ML BAG 40 UNITS IV (04:20)
[2025-01-26] MEDS: IBUPROFEN 400 MG TABLET 800 MG PO (04:58)
[2025-01-26 06:53] VITALS: BP 104/51; PULSE 69; RESP 18; TEMP 37; O2SAT 98
--- NOTE | 2025-01-26 08:17 | HMH.PHAINT1 ---
Pharmacy Intervention Comments: MEDICATION RECONCILIATION COMPLETED ON PATIENT USING EXTERNAL FILL HISTORY FROM PHARMACY. -JUAN MANUEL GOLDBERG, SUSSYD
--- NOTE | 2025-01-26 09:34 | P.DS_ITS ---
General Admission date:: 01/25/25 Discharge date: 01/26/25 HPI HPI HPI: Levi is a 24yo who presented to the office today after 3 days of vaginal bleeding and was noted to have no cardiac activity. Patient sent to radiology and diagnosis confirmed Hospital Course Hospital Course Hospital Course: Levi is a 24-year-old who delivered a intrauterine demise this morning at 03 26. weighed 1.3 ounces and was 5-1/2 inches long. 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 Low-set ears and low-set eyes were noted. Abnormalities of the left hand was noted. No significant spina bifida defects noted. Patient will be discharged home with a follow-up in 1 to 2 weeks. Routine discharge instructions reviewed with patient in detail Exam Data for Last 24 hours Vital signs and Labs for Last 24 Hours: Temp Pulse Resp BP Pulse Ox O2 Del Method 98.6 F 69 18 104/51 L 98 Room Air 01/26/25 06:53 01/26/25 06:53 01/26/25 06:53 01/26/25 06:53 01/26/25 06:53 01/26/25 06:53 Laboratory Results - last 24 hr 01/25/25 16:00: WBC 8.7, RBC 5.03, Hgb 14.1, Hct 41.8, MCV 83.1, MCH 28.0, MCHC 33.7, RDW 12.9, Plt Count 244, MPV 10.4, Neut % (Auto) 67.7, Lymph % (Auto) 24.6, [place] % (Auto) 5.0, Eos % (Auto) 1.7, Baso % (Auto) 0.7, Neut # (Auto) 5.9, Lymph # (Auto) 2.1, [place] # (Auto) 0.4, Eos # (Auto) 0.2, Baso # (Auto) 0.1, Sodium 141, Potassium 3.6, Chloride 104, Carbon Dioxide 26, Anion Gap 14.6, BUN 11, Creatinine 0.80, Estimated GFR 87, Est GFR ( Amer) 105, Glucose 94, Calcium 9.7, Total Bilirubin 0.3, AST 40 H, ALT 57, Alkaline Phosphatase 67, Total Protein 8.1, Albumin 4.7, Globulin 3.4 H, Albumin/Globulin Ratio 1.4, Blood Type B Positive, Antibody Screen Negative, Crossmatch ([facility]) See Detail I & O for Last 24 hours: Intake & Output 01/23/25 01/24/25 01/25/25 01/26/25 23:59 23:59 23:59 23:59 Weight 160 lb Narrative: General: patient is alert oriented in no acute distress and responds appropriately to questions. Appears to be in minimal pain. HEENT: NCAT, EOMI, moist mucous membranes, neck supple with full ROM Cardiovascular: RRR +S1/S2, no murmurs or rubs Pulmonary: Clear to auscultation bilaterally, nonlabored breathing, symmetric chest rise Abdominal: Fundus below the umbilicus, firm, and tenderness appropriate for the period. Extremities: no edema, no tenderness or cyanosis noted Skin: Normal turgor, intact, warm. Negative for erythema, pallor, petechia, or lesions Neurologic: Negative for sensory or motor deficit Psychiatric: Normal affect, normal thought process, good judgment and insight, no depression or anxious mood appreciated. Results Data Completed and Pending Labs on day of discharge: Labs from last 24 hours 01/25/25 16:00 WBC 8.7 RBC 5.03 Hgb 14.1 Hct 41.8 MCV 83.1 MCH 28.0 MCHC 33.7 RDW 12.9 Plt Count 244 MPV 10.4 Neut % (Auto) 67.7 Lymph % (Auto) 24.6 [place] % (Auto) 5.0 Eos % (Auto) 1.7 Baso % (Auto) 0.7 Neut # (Auto) 5.9 Lymph # (Auto) 2.1 [place] # (Auto) 0.4 Eos # (Auto) 0.2 Baso # (Auto) 0.1 Sodium 141 Potassium 3.6 Chloride 104 Carbon Dioxide 26 Anion Gap 14.6 BUN 11 Creatinine 0.80 Estimated GFR 87 Est GFR ( Amer) 105 Glucose 94 Calcium 9.7 Total Bilirubin 0.3 AST 40 H ALT 57 Alkaline Phosphatase 67 Total Protein 8.1 Albumin 4.7 Globulin 3.4 H Albumin/Globulin Ratio 1.4 Blood Type B Positive Antibody Screen Negative Crossmatch ([facility]) See Detail DS: Diagnosis Discharge Diagnosis (1) demise: Status: Acute (2) Short interval between pregnancies affecting , antepartum: Status: Acute Code(s): O09.899 - Supervision of other high risk pregnancies, unspecified trimester (3) 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: Status: Acute Code(s): Q92.7 - Triploidy and polyploidy Meds Home Medications and Allergies Home Medications ?Medication ?Instructions ?Recorded ?Confirmed ?Type albuterol sulfate 90 mcg/actuation 1 inh inhalation Q6 -8H PRN 01/20/25 01/25/25 Rx aerosol inhaler (Ventolin HFA) shortness of breath or wheezing #8.5 grams acetaminophen 500 mg tablet 500 mg PO Q6H PRN fever or pain 01/26/25 Rx #30 tabs ibuprofen 800 mg tablet 800 mg PO Q8H PRN pain #60 t abs 01/26/25 Rx ondansetron 4 mg disintegrating 4 mg PO Q8HP PRN Nause a And 01/26/25 01/26/25 History tablet Vomiting New Prescriptions to Start Prescriptions: acetaminophen Nicole Gonzales ibuprofen Nicole Gonzales Allergies Allergy/AdvReac Type Severity Reaction Status Date / Time No Known Allergies Allergy Verified 01/25/25 13:16 Discharge Plan Disposition Patient Disposition: Home, Self-Care Discharge Order Discharge Orders: Discharge Order (Routine); Ordered 01/26/25 Ordered By: Nicole Gonzales Follow up Plan Follow up with: Nicole Gonzales DO [Staff Physician, RETIREMENT MANAGER] - Enter time for follow up Prescriptions/Medication Reconciliation: New ibuprofen 800 mg tablet 800 mg PO Q8H PRN (Reason: pain) Qty: 60 2RF acetaminophen 500 mg tablet 500 mg PO Q6H PRN (Reason: fever or pain) Qty: 30 3RF Continued albuterol sulfate [Ventolin HFA] 90 mcg/actuation HFA aerosol inhaler 1 inh inhalation Q6-8H PRN (Reason: shortness of breath or wheezing) Qty: 8.5 4RF ondansetron 4 mg tablet,disintegrating 4 mg PO Q8HP PRN (Reason: Nausea And Vomiting) Problem Reconciliation Problems Reviewed?: Yes Patient Discharge Instructions ACTIVITY: Continue current activity DIET: regular diet Patient Instructions: Depression, Hemorrhage, DI for Labor and Delivery, Vaginal , DI for Pre-eclampsia, [facility] Post Discharge Instructions Print Language: Chinese Providers Primary Care Provider: Madyson Patel Admit Provider: Nicole Gonzales Attending Provider: Nicole Gonzales
[2025-01-26 10:18] LABS: Hematocrit 38.2 % (37.0-47.0); Hemoglobin 12.9 g/dL (12.2-16.2); Immature Granulocytes % 0.3 %; Mean Corpuscular HGB Conc 33.8 g/dL (31.8-35.4); Mean Corpuscular Hemoglobin 27.9 pg (27.0-31.2); Mean Corpuscular Volume 82.5 fl (81-99); Nucleated Red Blood Cells % 0 %; Platelet Count 211 K/mm3 (142-424); Red Blood Count 4.63 M/mm3 (4.20-5.40); Red Cell Distribution Width-SD 39.3 fL; White Blood Count 9.5 K/mm3 (4.8-10.8)
[2025-01-26 14:33] LABS: RPR W/RFX Titers Nonreactive (Nonreactive)
== END 2025-01-26 14:42 | disposition home or self-care (01) | DRG 807 ==
PROVIDERS: Admitting Provider Obstetrics & Gynecology; PCP Family Medicine; Visit Provider Obstetrics & Gynecology
DX: O36.4XX0 Maternal care for intrauterine death, not applicable or unspecified (principal); Z37.1 Single stillbirth; Z3A.00 Weeks of gestation of pregnancy not specified; O99.334 Smoking (tobacco) complicating childbirth; F17.210 Nicotine dependence, cigarettes, uncomplicated; O35.19X0 Maternal care for (suspected) chromosomal abnormality in fetus, other chromosomal abnormality, not applicable or unspecified; O99.892 Other specified diseases and conditions complicating childbirth; R74.01 Elevation of levels of liver transaminase levels; Z23 Encounter for immunization
CPT/HCPCS: 36415; 80053; 85025; 86592; 86850; J2270